=== PATIENT | male | born 1985 | race African-American/Black ===

== ENCOUNTER 2016-12-11 16:30 | Emergency (ER) | payer MEDICARE, OTHER ==
[~2016-12-11] VITALS: Ht 175.3 cm; Wt 95.3 kg
[~2016-12-11 16:30] MED LIST: ALBUAER3 IN
[2016-12-11 16:42] VITALS: BP 129/77
[2016-12-11] MEDS ORDERED: methylPREDNISolone SOD SUCC 125 MG/2 ML VL IM ONE (17:30)
[2016-12-11] MEDS ORDERED: diphenhdrAMINE HCL 50 MG/1 ML VL IM ONE (17:30)
== END 2016-12-11 18:02 | disposition home or self-care (01) ==
LOC: ER 16:38
DX: L30.9 Dermatitis, unspecified (principal); J45.909 Unspecified asthma, uncomplicated; F17.210 Nicotine dependence, cigarettes, uncomplicated; F12.10 Cannabis abuse, uncomplicated; Z79.899 Other long term (current) drug therapy
CPT/HCPCS: 96372; 99284; J1200; J2930

== ENCOUNTER 2017-04-20 00:03 | Emergency (ER) | payer OTHER, MEDICAID ==
[~2017-04-20] VITALS: Ht 177.8 cm; Wt 117.9 kg
[2017-04-20 00:30] VITALS: BP 131/83
[2017-04-20 00:51] LABS: Basophils # (auto) 0.2 uL; Basophils % (auto) 2.5 % (0.0-2.0); Eosinophils # (auto) 0.6 uL; Eosinophils % (auto) 7.6 % (0.0-7.0); Hemoglobin 15.6 g/dL (13.5-17.5); Lymphocytes # (auto) 2.4 uL; Lymphocytes % (auto) 30.5 % (10.0-50.0); Mean Corpuscular Hgb Conc. 33.1 g/dL (32.0-36.0); Mean Corpuscular Volume 87.4 fL (80.0-100.0); Monocytes # (auto) 0.7 uL; Monocytes % (auto) 8.8 % (0.0-12.0); Neutrophils % (auto) 50.6 % (37.0-80.0); Platelet Count (auto) 189 10^3/uL (140-450); Red Cell Distribution Width 13.3 % (11.6-16.0); White Blood Cell 7.9 10^3/uL (4.4-10.8)
[2017-04-20 01:10] LABS: Albumin 3.9 g/dL (3.4-5.0); BUN/Creatinine Ratio 17.7; Calcium 8.9 mg/dL (8.5-10.1)
[2017-04-20 01:12] LABS: Bilirubin, Total 0.3 mg/dL (0.2-1.0); Total Protein 8.1 g/dL (6.4-8.2)
[2017-04-20 01:25] LABS: Potassium 4.4 mmol/L (3.5-5.1)
== END 2017-04-20 05:44 | disposition left against medical advice (07) ==
LOC: ER 00:03
DX: K61.1 Rectal abscess (principal); Z53.21 Procedure and treatment not carried out due to patient leaving prior to being seen by health care provider
CPT/HCPCS: 36415; 80053; 85025

== ENCOUNTER 2018-02-02 03:09 | Emergency (ER) | payer OTHER, MEDICAID ==
[~2018-02-02] VITALS: Ht 172.7 cm; Wt 95.3 kg
[~2018-02-02 03:09] MED LIST changes: +METF-370 PO
[2018-02-02 03:51] LABS: Basophils # (auto) 0.1 uL; Eosinophils # (auto) 0.5 uL; Eosinophils % (auto) 5.4 % (0.0-7.0); Hematocrit 45.5 % (41.0-53.0); Hemoglobin 15.4 g/dL (13.5-17.5); Lymphocytes # (auto) 1.9 uL; Lymphocytes % (auto) 20.7 % (10.0-50.0); Mean Corpuscular Hemoglobin 29.9 pg (28.0-32.0); Mean Corpuscular Hgb Conc. 33.9 g/dL (32.0-36.0); Mean Corpuscular Volume 88.3 fL (80.0-100.0); Monocytes # (auto) 0.7 uL; Monocytes % (auto) 7.3 % (0.0-12.0); Neutrophils # (auto) 6.1 uL; Neutrophils % (auto) 65.6 % (37.0-80.0); Platelet Count (auto) 174 10^3/uL (140-450); Red Blood Cells 5.15 10^6/uL (4.5-5.90); Red Cell Distribution Width 14.1 % (11.8-14.3); White Blood Cell 9.3 10^3/uL (4.4-10.8)
[2018-02-02 04:17] LABS: Albumin 3.7 g/dL (3.4-5.0); BUN/Creatinine Ratio 12.2; Bilirubin, Total 0.5 mg/dL (0.2-1.0); Calcium 9.3 mg/dL (8.5-10.1); Total Protein 8.4 g/dL (6.4-8.2)
[2018-02-02 05:39] LABS: Urine Bacteria NONE SEEN /hpf (None Seen); Urine Blood Negative /uL (Negative); Urine Specific Gravity 1.039 (1.001-1.035); Urine WBC <1 /hpf (0 - 3)
[2018-02-02] MEDS ORDERED: SODIUM CHLORIDE 0.9% 1,000 ML IV ONE (07:09)
[2018-02-02] MEDS ORDERED: VANCOMYCIN 1GM/250ML 250 ML IV ONE (07:15)
[2018-02-02] MEDS ORDERED: ALBUTEROL SULF 2.5 MG/0.5ML(0.5%) NEB SOLN NEB ONE (08:15)
[2018-02-02] MEDS ORDERED: IPRATROPIUM BROM 0.5 MG/2.5ML INH SOL NEB ONE (08:15)
[2018-02-02 09:16] VITALS: BP 117/80
[2018-02-02] MEDS ORDERED: KETOROLAC TROMETH 30 MG/ML 1ML VIAL IV ONE (12:45)
[2018-02-02] MEDS ORDERED: InsuLIN REG 1unit/0.01ml Soln (100units/ml) IV ONE (12:45)
[2018-02-02] MEDS ORDERED: METOCLOPRAMIDE HCL 5MG/ml INJ 2ml VIAL IV ONE (12:45)
== END 2018-02-02 14:30 | disposition left against medical advice (07) ==
LOC: ER 03:11
DX: E11.65 Type 2 diabetes mellitus with hyperglycemia (principal); L73.9 Follicular disorder, unspecified; L02.225 Furuncle of perineum; J45.909 Unspecified asthma, uncomplicated; F12.10 Cannabis abuse, uncomplicated; Z79.84 Long term (current) use of oral hypoglycemic drugs; Z79.899 Other long term (current) drug therapy
CPT/HCPCS: 36415; 71046; 80053; 81001; 82010; 82962; 83036; 83735; 84443; 85025; 94640; 96365; 96375; J1815; J1885

== ENCOUNTER 2020-07-10 20:53 | Inpatient (IN) | payer OTHER, MEDICAID ==
[~2020-07-10] VITALS: Ht 175.3 cm; Wt 112.7 kg
[2020-07-10] MEDS ORDERED: InsuLIN REG 1unit/0.01ml Soln (100units/ml) IV ONE (21:30)
[2020-07-10] MEDS ORDERED: SODIUM CHLORIDE 0.9% 1,000 ML IV ONE (21:30)
[2020-07-10 22:02] LABS: Basophils # (auto) 0.1 10 ^3/uL (0-0.2); Basophils % (auto) 1.6 % (0.0-2.0); Eosinophils # (auto) 0.4 10 ^3/uL (0-0.8); Eosinophils % (auto) 5.7 % (0.0-7.0); Hematocrit 49.8 % (41.0-53.0); Hemoglobin 16.8 g/dL (13.5-17.5); Lymphocytes # (auto) 1.8 10 ^3/uL (0.4-5.4); Lymphocytes % (auto) 25.6 % (10.0-50.0); Mean Corpuscular Hemoglobin 30.3 pg (28.0-32.0); Mean Corpuscular Hgb Conc. 33.8 g/dL (32.0-36.0); Mean Corpuscular Volume 89.6 fL (80.0-100.0); Monocytes # (auto) 0.3 10 ^3/uL (0-1.3); Monocytes % (auto) 4.3 % (0.0-12.0); Neutrophils # (auto) 4.3 10 ^3/uL (1.6-8.6); Neutrophils % (auto) 62.8 % (37.0-80.0); Nucleated Red Blood Cells % 0.1 %; Platelet Count (auto) 144 10^3/uL (140-450); Red Blood Cells 5.55 10^6/uL (4.5-5.90); Red Cell Distribution Width 13.7 % (11.8-14.3); White Blood Cell 6.8 10^3/uL (4.4-10.8)
[2020-07-10 22:41] LABS: Albumin 3.5 g/dL (3.4-5.0); Calcium 9.2 mg/dL (8.5-10.1); Potassium 4.5 mmol/L (3.5-5.1)
[2020-07-10 22:50] LABS: BUN/Creatinine Ratio 13.1; Bilirubin, Total 0.6 mg/dL (0.2-1.0)
[2020-07-11] VITALS (7 sets, daily range): BP systolic 105–117; BP diastolic 59–79
[2020-07-11] MEDS ORDERED: ACETAMINOPHEN 325 MG TAB PO ONE
[2020-07-11] MEDS ORDERED: ONDANSETRON HCL 4 MG/2 ML VIAL IV ONE (00:15)
[2020-07-11] MEDS ORDERED: MORPHINE SULFATE 4 MG/ML SYR/VIAL IV ONE (00:15)
[2020-07-11] MEDS ORDERED: MORPHINE SULF INJ 2 MG/ML SYRINGE 1ML IV ONE (03:45)
[2020-07-11] MEDS ORDERED: DEXTROSE (50%) 50ML SYRG IV PRN (03:45)
[2020-07-11] MEDS ORDERED: ACETAMINOPHEN 325 MG TAB PO PRN (03:45)
[2020-07-11] MEDS ORDERED: ONDANSETRON HCL 4 MG/2 ML VIAL IV PRN (03:45)
[2020-07-11] MEDS ORDERED: VANCOMYCIN PER PHARMACY 0 MG IV SCH (03:45)
[2020-07-11] MEDS ORDERED: SODIUM CHLORIDE 0.9% 1,000 ML IV ONE (03:45)
[2020-07-11] MEDS ORDERED: VANCOMYCIN 1,500 MG in D5W 5% 250 ML IV ONE (04:00)
--- NOTE | 2020-07-11 05:00 | NUR ---
MS admit from ER MENDOZA,STEPHANIE admitted to [facility]. Patient oriented to RANDAL REED, RN primary RN, unit, room, bed, and unit policies regarding patient care and visiting hours. Patient weighed by bedscale and encouraged to call if they need something. All questions and concerns addressed, patient verbalized understanding. Will continue to monitor.
[2020-07-11 05:47] LABS: Basophils # (auto) 0.1 10 ^3/uL (0-0.2); Basophils % (auto) 1.3 % (0.0-2.0); Eosinophils # (auto) 0.4 10 ^3/uL (0-0.8); Eosinophils % (auto) 6.1 % (0.0-7.0); Hematocrit 43.7 % (41.0-53.0); Hemoglobin 14.7 g/dL (13.5-17.5); Lymphocytes # (auto) 2.1 10 ^3/uL (0.4-5.4); Lymphocytes % (auto) 29.3 % (10.0-50.0); Mean Corpuscular Hemoglobin 29.6 pg (28.0-32.0); Mean Corpuscular Hgb Conc. 33.7 g/dL (32.0-36.0); Mean Corpuscular Volume 87.8 fL (80.0-100.0); Monocytes # (auto) 0.5 10 ^3/uL (0-1.3); Neutrophils # (auto) 3.9 10 ^3/uL (1.6-8.6); Neutrophils % (auto) 56.3 % (37.0-80.0); Nucleated Red Blood Cells % 0.1 %; Platelet Count (auto) 128 10^3/uL (140-450); Red Blood Cells 4.97 10^6/uL (4.5-5.90); Red Cell Distribution Width 13.4 % (11.8-14.3)
[2020-07-11] MEDS ORDERED: PIPERACILLIN-TAZOB 3.375GM 100 ML IV SCH ×2 (06:00→07:02)
[2020-07-11 06:07] LABS: Albumin 3.1 g/dL (3.4-5.0); Calcium 8.8 mg/dL (8.5-10.1); Magnesium 2.2 mg/dL (1.6-2.6)
[2020-07-11 06:10] LABS: BUN/Creatinine Ratio 18.2; Bilirubin, Total 0.4 mg/dL (0.2-1.0); Phosphorus 3.4 mg/dL (2.5-4.90); Total Protein 6.8 g/dL (6.4-8.2)
[2020-07-11 06:13] LABS: Potassium 3.8 mmol/L (3.5-5.1)
[2020-07-11] MEDS: PIPERACILLIN-TAZOB 3.375GM 100 ML IV SCH ×3 (07:04→23:43)
[2020-07-11] MEDS: ACCU-CHEK COMFORT CURVE STRIP VI SCH ×4 (07:13→22:11)
[2020-07-11] MEDS: MORPHINE SULF INJ 2 MG/ML SYRINGE 1ML IV PRN ×4 (07:13→20:20)
[2020-07-11] MEDS: InsuLIN REG 1unit/0.01ml Soln (100units/ml) SC SCH ×3 (07:14→22:14)
[2020-07-11] MEDS: IPRATROPIUM BROM 0.5 MG/2.5ML INH SOL NEB SCH ×3 (07:18→18:00)
[2020-07-11] MEDS: ALBUTEROL SULF 2.5 MG/0.5ML(0.5%) NEB SOLN NEB SCH ×3 (07:18→18:00)
[2020-07-11] MEDS: ENOXAPARIN SOD 40 MG/0.4 ML SYRINGE SC SCH ×2 (10:00→10:18)
[2020-07-11] MEDS: VANCOMYCIN 1GM/250ML 250 ML IV SCH ×2 (10:18→22:04)
--- NOTE | 2020-07-11 19:34 | NUR ---
Opening Shift Note Received report and assumed care of patient. Patient is awake and alert. No signs or symptoms of distress noted. Instructed patient on plan of care and to call for assistance as needed. Will continue to monitor.
[2020-07-11 19:45] LABS: INR 0.9 (0.9-1.15)
--- NOTE | 2020-07-11 20:20 | NUR ---
Pain Medication Administration Patient complaining of lower back pain 10/10. Will administer pain medication per MD order. Will reassess pain level and will continue to monitor.
--- NOTE | 2020-07-11 20:50 | NUR ---
Pain Level Reassessment Patient's pain level reassessed to be 8/10. Offered patient nonpharmacological interventions. Patient states pain level is tolerable. No signs or symptoms of distress noted. Will continue to monitor.
[2020-07-11] MEDS: INSULIN LANTUS (GLARGINE) 1 /0.01ml (100units/ml) SC SCH (22:12)
[2020-07-11 23:44] LABS: Urine Bacteria NONE SEEN /hpf (None Seen); Urine Blood Negative /uL (Negative); Urine Specific Gravity 1.029 (1.001-1.035); Urine WBC 1 /hpf (0 - 3)
[2020-07-12] MEDS: ALBUTEROL SULF 2.5 MG/0.5ML(0.5%) NEB SOLN NEB SCH ×4 (00:07→18:34)
[2020-07-12] MEDS: IPRATROPIUM BROM 0.5 MG/2.5ML INH SOL NEB SCH ×4 (00:07→18:34)
[2020-07-12] MEDS: MORPHINE SULF INJ 2 MG/ML SYRINGE 1ML IV PRN ×6 (00:25→23:54)
--- NOTE | 2020-07-12 00:25 | NUR ---
Pain Medication Administration Patient complaining of lower back pain 10/10. Will administer pain medication per MD order. Will reassess pain level and will continue to monitor.
--- NOTE | 2020-07-12 00:55 | NUR ---
Pain Level Reassessment Patient asleep for pain level reassessment. No signs or symptoms of distress noted. Will continue to monitor.
--- NOTE | 2020-07-12 04:40 | NUR ---
Pain Medication Administration Patient complaining of lower back pain 10/10. Will administer pain medication per MD order. Will reassess pain level and will continue to monitor.
--- NOTE | 2020-07-12 05:10 | NUR ---
Pain Level Reassessment Patient's pain level reassessed to be 8/10. Offered patient nonpharmacological interventions. Patient repositioned for comfort.Will continue to monitor.
[2020-07-12 05:49] LABS: Basophils # (auto) 0.1 10 ^3/uL (0-0.2); Basophils % (auto) 0.9 % (0.0-2.0); Eosinophils # (auto) 0.4 10 ^3/uL (0-0.8); Eosinophils % (auto) 4.8 % (0.0-7.0); Hemoglobin 16.1 g/dL (13.5-17.5); Lymphocytes # (auto) 1.3 10 ^3/uL (0.4-5.4); Lymphocytes % (auto) 18.2 % (10.0-50.0); Mean Corpuscular Hgb Conc. 32.9 g/dL (32.0-36.0); Mean Corpuscular Volume 88.1 fL (80.0-100.0); Monocytes # (auto) 0.5 10 ^3/uL (0-1.3); Monocytes % (auto) 6.2 % (0.0-12.0); Neutrophils # (auto) 5.2 10 ^3/uL (1.6-8.6); Neutrophils % (auto) 69.9 % (37.0-80.0); Nucleated Red Blood Cells % 0.1 %; Platelet Count (auto) 147 10^3/uL (140-450); Red Blood Cells 5.56 10^6/uL (4.5-5.90); Red Cell Distribution Width 13.5 % (11.8-14.3); White Blood Cell 7.4 10^3/uL (4.4-10.8)
[2020-07-12 05:58] VITALS: BP 99/60
[2020-07-12 06:04] LABS: INR 0.91 (0.9-1.15)
[2020-07-12 06:09] LABS: Potassium 3.9 mmol/L (3.5-5.1)
[2020-07-12 06:14] LABS: BUN/Creatinine Ratio 16.8; Calcium 9.3 mg/dL (8.5-10.1)
[2020-07-12] MEDS: PIPERACILLIN-TAZOB 3.375GM 100 ML IV SCH ×3 (06:19→23:54)
[2020-07-12] MEDS: INSULIN LANTUS (GLARGINE) 1 /0.01ml (100units/ml) SC SCH ×2 (06:38→21:33)
[2020-07-12] MEDS: InsuLIN REG 1unit/0.01ml Soln (100units/ml) SC SCH ×4 (06:39→21:33)
[2020-07-12] MEDS: ACCU-CHEK COMFORT CURVE STRIP VI SCH ×4 (06:39→21:34)
[2020-07-12 09:00] VITALS: BP 106/64
[2020-07-12] MEDS: ENOXAPARIN SOD 40 MG/0.4 ML SYRINGE SC SCH (10:00)
[2020-07-12] MEDS: TRIAMCINOLONE ACET0.5% TOPICAL CRE 15GM TOP SCH (10:19)
[2020-07-12] MEDS: VANCOMYCIN 1GM/250ML 250 ML IV SCH (10:19)
--- NOTE | 2020-07-12 11:30 | NUR ---
WOUND CARE NOTE: WOUND CARE IN TO SEE PATIENT PER WOUND CARE REQUEST. PATIENT ADMITTED TO [facility] FOR HYPERGLYCEMIA AND LOWER BACK INFECTION. BEDSIDE NURSE NOTED SKIN INTEGRITY ISSUES UPON ADMISSION. PHOTOGRAPHS TAKENA T THAT TIME FOR REFERENCE. PATIENT NOTED TO HAVE INTACT ABSCESS TO MEDIAL LOWER BACK AND BILATERAL PLANTAR FOOT CALLUS. ZGUARD AND OPTIFOAM GENTLE SACRAL DRESSING APPLIED TO MEDIAL LOWER BACK. BILATERAL PLANTAR FEET LEFT OPEN TO AIR. PATIENT TO UNDERGO SURGERY FOR ABSCESS. RECOMMEND: DRESSING CHANGE PER SURGEON'S ORDERS. SKIN/WOUND CARE PLAN. CONTINUED MONITORING BY WOUND CARE TEAM. Addendum: 07/12/20 at 1712 by GILMER GAMA RN RN Amended: Links added.
--- NOTE | 2020-07-12 12:43 | NUR ---
Nutrition Consult Pt is a consult for new DM will provide education for pt Est energy needs 3200-5600 kcal (14-18 kcal/kg BW 107.9kg) Est protein needs 73-95g (1-1.3g/kg IBW 72.7kg) Will reassess prn. Addendum: 07/12/20 at [address] Amended: Links added.
[2020-07-12 13:00] VITALS: BP 112/74
--- NOTE | 2020-07-12 15:01 | NUR ---
assessment re: ss consult Patient is a 35 year old male who is alert and oriented. Patients phone is not working in his room. Per gaudencio Amezquita prior to admission patient lived home with her and family and needed assistance when his asthma acts ups. Lasha Amezquita her and her daughter help patient when he needs it. I have offer Bia [facility] information and Bia accepted information. Per Bia patient will return home on discharge and she will transport him home. Patients PCP is Dr Allison. Bia informed me patient was having trouble with his insurance thats why he ran out of insulin. Per Bia Insurance is fine now and patient will be getting his prescriptions. Patient will benefit from home health for med management. I will continue to monitor and follow up as appropriate. Bia verbalized understanding and agreed to discharge plan home. Addendum: 07/12/20 at 1515 by Marlee NYE Amended: Links added.
[2020-07-12 17:00] VITALS: BP 109/59
--- NOTE | 2020-07-12 18:34 | NUR ---
Respiratory note: PT AT PROCEDURE AT THIS TIME, MED NEB TX NOT GIVEN. WILL CONTINUE TO MONITOR.
--- NOTE | 2020-07-12 19:55 | NUR ---
Patient was taken to OR after blood sugar checked BS 145
[2020-07-12] MEDS ORDERED: ceFAZolin 1GM/50ML 50 ML IV ONE (21:29)
[2020-07-12] MEDS ORDERED: PROPOFOL 10 MG/ML 20 ML IV ONE (21:38)
[2020-07-12] MEDS ORDERED: fentaNYL CITRATE 100 MCG/2 ML VL ONE (21:38)
[2020-07-12] MEDS ORDERED: MIDAZOLAM HCL 1MG/1ML-2 ML VIAL ONE (21:38)
[2020-07-12] MEDS: LIDOCAINE 1% HCL (LOCAL ANESTH.) INJ 20ML MDV ONE ×2 (21:51→22:00)
[2020-07-12 22:00] VITALS: BP 106/70
[2020-07-12] MEDS ORDERED: fentaNYL CITRATE 100 MCG/2 ML VL IV PRN (22:15)
[2020-07-12] MEDS ORDERED: ePHEDrine SULFATE 50 MG/ML AMP IV PRN (22:15)
[2020-07-12] MEDS ORDERED: ONDANSETRON HCL 4 MG/2 ML VIAL IV PRN (22:15)
[2020-07-12] MEDS ORDERED: hydrALAZINE HCL 20 MG/ML VL IV PRN (22:15)
[2020-07-12] MEDS ORDERED: KETOROLAC TROMETH 30 MG/ML 1ML VIAL IV ONE (22:15)
[2020-07-12] MEDS ORDERED: KETOROLAC TROMETH 30 MG/ML 1ML VIAL ONE (22:28)
--- NOTE | 2020-07-12 22:43 | NUR ---
Report received from OR, patient to be on continues pulse ox for the next 24hr.
--- NOTE | 2020-07-12 23:00 | NUR ---
Respiratory note: CONT PULSOX CHECK ON PT WHO JUST CAME OUT OF OR. PT'S HR 65, RR 20, SPO2 97% ON ROOM AIR. PT IS SITTING UP IN BED EATING FOOD. NO S/S OF ANY RESPIRATORY DISTRESS NOTED. CONT PULSOX IS PLUGGED INTO RED OUTLET. WILL CONTINUE TO MONITOR PT.
[2020-07-13] MEDS: ALBUTEROL SULF 2.5 MG/0.5ML(0.5%) NEB SOLN NEB SCH ×4 (00:35→18:36)
[2020-07-13] MEDS: IPRATROPIUM BROM 0.5 MG/2.5ML INH SOL NEB SCH ×4 (00:35→18:36)
[2020-07-13] MEDS: VANCOMYCIN 1GM/250ML 250 ML IV SCH ×3 (02:59→18:51)
[2020-07-13 05:00] VITALS: BP 106/60
[2020-07-13] MEDS: ACCU-CHEK COMFORT CURVE STRIP VI SCH ×4 (05:15→22:13)
[2020-07-13] MEDS: MORPHINE SULF INJ 2 MG/ML SYRINGE 1ML IV PRN ×2 (05:16→08:27)
[2020-07-13] MEDS: INSULIN LANTUS (GLARGINE) 1 /0.01ml (100units/ml) SC SCH ×2 (06:40→22:07)
[2020-07-13] MEDS: InsuLIN REG 1unit/0.01ml Soln (100units/ml) SC SCH ×4 (06:40→22:07)
[2020-07-13] MEDS: PIPERACILLIN-TAZOB 3.375GM 100 ML IV SCH ×3 (06:40→22:06)
[2020-07-13] MEDS ORDERED: HYDROcodone-ACET 10/325MG TAB PO PRN (08:15)
--- NOTE | 2020-07-13 08:55 | NUR ---
Surgeon Rounding Dr. Charlette Busots Rounded. Vebal orders received to D/C morphine and administer Dilaudid 1mg IV Q4HP. Will enter in eMAR
[2020-07-13 09:00] VITALS: BP 103/53
[2020-07-13] MEDS: ENOXAPARIN SOD 40 MG/0.4 ML SYRINGE SC SCH (10:00)
[2020-07-13] MEDS: HYDROmorphone HCL 2 MG/ML VL IV PRN ×4 (10:37→23:33)
[2020-07-13] MEDS: TRIAMCINOLONE ACET0.5% TOPICAL CRE 15GM TOP SCH (12:18)
[2020-07-13 13:00] VITALS: BP 118/59
[2020-07-13 16:46] VITALS: BP 109/60
--- NOTE | 2020-07-13 18:40 | NUR ---
PT'S SPO2 DROPS TO 88% WHILE SLEEPING. PT DECLINED TO HAVE OXYGEN PLACED WHILE HE SLEEPS. HE REMAINS ON CONTINUOUS POX MONITORING. Addendum: 07/13/20 at 1842 [address] M[address]ENO RT Amended: Links added.
[2020-07-13 20:00] VITALS: BP 98/61
[2020-07-13 22:00] VITALS: BP 98/61
[2020-07-14] MEDS: IPRATROPIUM BROM 0.5 MG/2.5ML INH SOL NEB SCH ×3 (01:03→11:57)
[2020-07-14] MEDS: ALBUTEROL SULF 2.5 MG/0.5ML(0.5%) NEB SOLN NEB SCH ×3 (01:03→11:57)
[2020-07-14] MEDS: VANCOMYCIN 1GM/250ML 250 ML IV SCH ×3 (02:04→18:00)
[2020-07-14] MEDS: HYDROmorphone HCL 2 MG/ML VL IV PRN ×3 (03:33→13:18)
[2020-07-14 05:00] VITALS: BP 121/54
[2020-07-14] MEDS: PIPERACILLIN-TAZOB 3.375GM 100 ML IV SCH ×2 (06:59→13:18)
[2020-07-14] MEDS: ACCU-CHEK COMFORT CURVE STRIP VI SCH ×3 (06:59→17:13)
[2020-07-14] MEDS: INSULIN LANTUS (GLARGINE) 1 /0.01ml (100units/ml) SC SCH (07:00)
[2020-07-14] MEDS: InsuLIN REG 1unit/0.01ml Soln (100units/ml) SC SCH ×3 (07:01→17:30)
[2020-07-14 09:00] VITALS: BP 124/68
[2020-07-14 09:25] VITALS: BP 121/54
[2020-07-14] MEDS: ENOXAPARIN SOD 40 MG/0.4 ML SYRINGE SC SCH (10:00)
[2020-07-14] MEDS: TRIAMCINOLONE ACET0.5% TOPICAL CRE 15GM TOP SCH (10:14)
[2020-07-14 13:00] VITALS: BP 133/78
[2020-07-14 17:00] VITALS: BP 133/78
--- NOTE | 2020-07-14 18:00 | NUR ---
RECEIVED CALL BACK FROM DOCTOR HOFFMAN, ORDERS RECEIVED FOR RN TO CHANGE DRESSING (SEE COMMUNICATION ORDER) AND THEN D/C PATIENT HOME. PER MD PATIENT TO FOLLOW UP WITH MD IN 2 WEEKS. WILL CARRY OUT.
--- NOTE | 2020-07-14 18:33 | NUR ---
WOUND CARE PERFORMED PER MD ORDERS NO PURULENT DRAINAGE OR ODOR NOTED. PATIENT TOLERATED WELL.
--- NOTE | 2020-07-14 18:46 | NUR ---
Discharge instructions given as ordered. Encourage to follow up with PMD as instructed. All questions and concerns addressed. Patient verbalized understanding. Medication reconciliation form completed and copy given to patient. IV removed with catheter intact, pressure dressing applied. Patient refused assistance from staff and ambulated to elevator with steady gait with all personal belongings, Family waiting in front lobby for transportation home. No distress noted at time of departure. Addendum: 07/14/20 at 1849 by PAWAN SHIELDS RN RN Patients prescription in hands at time of discharge.
== END 2020-07-14 18:46 | disposition home or self-care (01) | DRG 579 ==
LOC: ER 20:53 → OVERFLOW 20:54 → CENTRAL 07-11 04:54
PROVIDERS: ADMIT Internal Medicine; ATTEND Internal Medicine
PROC: 0J990ZZ Drainage of Buttock Subcutaneous Tissue and Fascia, Open Approach (ICD-10-PCS; principal; 2020-07-12 21:30)
DX: L05.02 Pilonidal sinus with abscess (principal); N17.0 Acute kidney failure with tubular necrosis; E11.65 Type 2 diabetes mellitus with hyperglycemia; J45.909 Unspecified asthma, uncomplicated; E86.0 Dehydration; Z79.4 Long term (current) use of insulin
CPT/HCPCS: 36415; 71250; 74176; 80048; 80053; 80202; 81001; 82010; 82962; 83036; 83735; 84100; 84443; 85025; 85610; 86850; 86900; 86901; 87070; 87075; 87205; 94640; 94760; 96361; 96374; 96375; G0378; J0690; J1815; J1885; J2001; J2250; J2405; J2543; J2704; J7060

== ENCOUNTER 2021-01-24 01:19 | Inpatient (IN) | payer OTHER, MEDICAID ==
[~2021-01-24] VITALS: Ht 175.3 cm; Wt 103.7 kg
[~2021-01-24 01:19] MED LIST changes: +ATOR20TA PO; +CLIN300C8 PO; +INSLANTI SC; +SACC250C PO
[2021-01-24 03:42] LABS: Basophils # (auto) 0.1 10 ^3/uL (0-0.2); Basophils % (auto) 0.9 % (0.0-2.0); Eosinophils # (auto) 0.7 10 ^3/uL (0-0.8); Eosinophils % (auto) 6.8 % (0.0-7.0); Hematocrit 44.8 % (41.0-53.0); Hemoglobin 15.3 g/dL (13.5-17.5); Lymphocytes # (auto) 1.9 10 ^3/uL (0.4-5.4); Lymphocytes % (auto) 19.2 % (10.0-50.0); Mean Corpuscular Hemoglobin 29.7 pg (28.0-32.0); Mean Corpuscular Hgb Conc. 34.1 g/dL (32.0-36.0); Monocytes # (auto) 0.6 10 ^3/uL (0-1.3); Monocytes % (auto) 6.5 % (0.0-12.0); Neutrophils # (auto) 6.5 10 ^3/uL (1.6-8.6); Neutrophils % (auto) 66.6 % (37.0-80.0); Nucleated Red Blood Cells % 0.2 %; Platelet Count (auto) 185 10^3/uL (140-450); Red Blood Cells 5.15 10^6/uL (4.5-5.90); White Blood Cell 9.8 10^3/uL (4.4-10.8)
[2021-01-24 04:01] LABS: Albumin 3.9 g/dL (3.4-5.0); BUN/Creatinine Ratio 12.5; Calcium 9.3 mg/dL (8.5-10.1); Magnesium 2.3 mg/dL (1.6-2.6); Potassium 3.6 mmol/L (3.5-5.1)
[2021-01-24 04:04] LABS: Bilirubin, Total 1.4 mg/dL (0.2-1.0); Total Protein 8.6 g/dL (6.4-8.2)
[2021-01-24 04:14] LABS: INR 0.96 (0.9-1.15)
[2021-01-24] MEDS ORDERED: fentaNYL CITRATE 100 MCG/2 ML VL IV ONE (05:30)
[2021-01-24] MEDS ORDERED: ONDANSETRON HCL 4 MG/2 ML VIAL IV ONE (05:30)
[2021-01-24] MEDS ORDERED: SODIUM CHLORIDE 0.9% 1,000 ML IV ONE (06:00)
[2021-01-24] MEDS ORDERED: CLINDAMYCIN 600MG IV 50 ML IV ONE (07:00)
[2021-01-24] MEDS ORDERED: DOCUSATE SOD 100 MG CAP PO PRN (07:15)
[2021-01-24] MEDS ORDERED: NITROGLYCERIN 0.4 MG SL TAB SL PRN (07:15)
[2021-01-24] MEDS ORDERED: MORPHINE SULF INJ 2 MG/ML SYRINGE 1ML IV PRN (07:15)
[2021-01-24] MEDS ORDERED: ACETAMINOPHEN 325 MG TAB PO PRN (07:15)
[2021-01-24] MEDS ORDERED: DEXTROSE (50%) 50ML SYRG IV PRN (07:15)
[2021-01-24] MEDS ORDERED: TEMAZEPAM 15 MG CAP PO PRN (07:15)
[2021-01-24] MEDS: SODIUM CHLORIDE 0.9% 1,000 ML IV SCH ×2 (07:24→14:23)
[2021-01-24] MEDS: MORPHINE SULFATE 4 MG/ML SYR/VIAL IV PRN ×3 (07:34→15:45)
[2021-01-24] MEDS: ONDANSETRON HCL 4 MG/2 ML VIAL IV PRN (07:35)
[2021-01-24 07:39] LABS: Basophils # (auto) 0 10 ^3/uL (0-0.2); Basophils % (auto) 0.5 % (0.0-2.0); Eosinophils # (auto) 0.7 10 ^3/uL (0-0.8); Eosinophils % (auto) 7.4 % (0.0-7.0); Hematocrit 42.2 % (41.0-53.0); Hemoglobin 14.3 g/dL (13.5-17.5); Lymphocytes # (auto) 1.6 10 ^3/uL (0.4-5.4); Lymphocytes % (auto) 18.5 % (10.0-50.0); Mean Corpuscular Hemoglobin 29.6 pg (28.0-32.0); Mean Corpuscular Volume 87.2 fL (80.0-100.0); Monocytes # (auto) 0.7 10 ^3/uL (0-1.3); Monocytes % (auto) 8.4 % (0.0-12.0); Neutrophils # (auto) 5.8 10 ^3/uL (1.6-8.6); Neutrophils % (auto) 65.2 % (37.0-80.0); Nucleated Red Blood Cells % 0.1 %; Platelet Count (auto) 165 10^3/uL (140-450); Red Blood Cells 4.83 10^6/uL (4.5-5.90); Red Cell Distribution Width 13.8 % (11.8-14.3); White Blood Cell 8.9 10^3/uL (4.4-10.8)
[2021-01-24 07:59] LABS: Albumin 3.5 g/dL (3.4-5.0); BUN/Creatinine Ratio 14.7; Calcium 8.9 mg/dL (8.5-10.1); Potassium 3.5 mmol/L (3.5-5.1)
[2021-01-24 08:02] LABS: Bilirubin, Total 1.3 mg/dL (0.2-1.0); Total Protein 7.7 g/dL (6.4-8.2)
[2021-01-24] MEDS ORDERED: IODIXANOL 320MG/ML 100ML BTL IV ONE (08:18)
[2021-01-24] MEDS: HYDROcodone-ACET 5/325MG TAB PO PRN ×2 (08:43→18:46)
[2021-01-24] MEDS: ZINC SULFATE 220mg CAP or TAB PO SCH (09:36)
[2021-01-24] MEDS: MULTIPLE VITAMIN TAB PO SCH (09:36)
[2021-01-24] MEDS: FAMOTIDINE (10MG/ML) 2ML VL IV SCH ×2 (09:36→22:00)
[2021-01-24] MEDS: ASCORBIC ACID 500 MG TAB PO SCH ×2 (09:36→22:00)
[2021-01-24] MEDS: ENOXAPARIN SOD 40 MG/0.4 ML SYRINGE SC SCH (09:37)
[2021-01-24] MEDS: InsuLIN REG 1unit/0.01ml Soln (100units/ml) SC SCH ×3 (11:30→22:00)
[2021-01-24] MEDS: ACCU-CHEK COMFORT CURVE STRIP VI SCH ×3 (11:30→22:00)
[2021-01-24 11:45] VITALS: BP 119/74
[2021-01-24 13:00] VITALS: BP 119/74
[2021-01-24] MEDS ORDERED: ALBUTEROL SULF HFA 90MCG INH 200DOSE IN SCH (14:00)
[2021-01-24] MEDS: CLINDAMYCIN 600MG IV 50 ML IV SCH ×2 (14:22→22:00)
[2021-01-24 14:45] VITALS: BP 119/74
[2021-01-24] MEDS ORDERED: ALBUTEROL SULF 2.5 MG/0.5ML(0.5%) NEB SOLN NEB PRN (15:00)
[2021-01-24 17:01] VITALS: BP 95/64
[2021-01-24 20:00] VITALS: BP 128/79
[2021-01-24] MEDS: INSULIN LANTUS (GLARGINE) 1 /0.01ml (100units/ml) SC SCH (22:00)
[2021-01-24 22:06] VITALS: BP 128/79
[2021-01-25] MEDS: MORPHINE SULFATE 4 MG/ML SYR/VIAL IV PRN ×4 (02:00→22:30)
[2021-01-25 05:00] VITALS: BP 130/76
[2021-01-25] MEDS: CLINDAMYCIN 600MG IV 50 ML IV SCH ×3 (06:00→22:00)
[2021-01-25 06:37] LABS: Basophils # (auto) 0.1 10 ^3/uL (0-0.2); Basophils % (auto) 0.7 % (0.0-2.0); Eosinophils # (auto) 0.7 10 ^3/uL (0-0.8); Eosinophils % (auto) 8.4 % (0.0-7.0); Hematocrit 41.7 % (41.0-53.0); Hemoglobin 14.3 g/dL (13.5-17.5); Lymphocytes # (auto) 1.4 10 ^3/uL (0.4-5.4); Lymphocytes % (auto) 17.6 % (10.0-50.0); Mean Corpuscular Hgb Conc. 34.2 g/dL (32.0-36.0); Mean Corpuscular Volume 87.6 fL (80.0-100.0); Monocytes # (auto) 0.6 10 ^3/uL (0-1.3); Monocytes % (auto) 7.7 % (0.0-12.0); Neutrophils # (auto) 5.4 10 ^3/uL (1.6-8.6); Neutrophils % (auto) 65.6 % (37.0-80.0); Nucleated Red Blood Cells % 0.2 %; Platelet Count (auto) 172 10^3/uL (140-450); Red Blood Cells 4.76 10^6/uL (4.5-5.90); Red Cell Distribution Width 13.9 % (11.8-14.3); White Blood Cell 8.2 10^3/uL (4.4-10.8)
[2021-01-25] MEDS: InsuLIN REG 1unit/0.01ml Soln (100units/ml) SC SCH ×5 (06:47→22:00)
[2021-01-25] MEDS: ACCU-CHEK COMFORT CURVE STRIP VI SCH ×4 (06:47→22:00)
[2021-01-25 06:54] LABS: Albumin 3.2 g/dL (3.4-5.0); Calcium 9.1 mg/dL (8.5-10.1); Potassium 3.7 mmol/L (3.5-5.1)
[2021-01-25 06:57] LABS: BUN/Creatinine Ratio 13.8; Bilirubin, Total 1.4 mg/dL (0.2-1.0); Total Protein 7.5 g/dL (6.4-8.2)
[2021-01-25] MEDS ORDERED: SUCCINYLCHOLINE CHLORIDE 20 MG/ML 10ML VIAL IV ONE (07:03)
[2021-01-25] MEDS ORDERED: fentaNYL CITRATE 100 MCG/2 ML VL ONE (07:06)
[2021-01-25] MEDS ORDERED: MEPERIDINE HCL (50 MG/ML) 1 ML VIAL ONE (07:07)
[2021-01-25] MEDS ORDERED: ROCURONIUM 10MG/ML 10ML VIAL IV ONE (07:07)
[2021-01-25] MEDS ORDERED: PROPOFOL 10 MG/ML 20 ML IV ONE (07:07)
[2021-01-25] MEDS ORDERED: NEOSTIGMINE 1 MG/ML INJ (10mg/10ML VIAL) ONE (07:07)
[2021-01-25] MEDS ORDERED: MEPERIDINE HCL (25 MG/ML) 1ML VIAL ONE (07:07)
[2021-01-25] MEDS ORDERED: ONDANSETRON HCL 4 MG/2 ML VIAL ONE (07:07)
[2021-01-25] MEDS ORDERED: SODIUM CHLORIDE LOCK 10 ML ONE (07:07)
[2021-01-25] MEDS ORDERED: GLYCOPYRROLATE 0.2 MG/ML 1ML VIAL ONE (07:07)
[2021-01-25] MEDS ORDERED: MIDAZOLAM HCL 1MG/1ML-2 ML VIAL ONE (07:07)
[2021-01-25] MEDS ORDERED: LIDOCAINE W/ EPINEPHRINE 1% 20ML VIAL ONE (07:26)
[2021-01-25] MEDS ORDERED: HYDROmorphone HCL 2 MG/ML VL IV PRN (07:45)
[2021-01-25] MEDS ORDERED: ACCU-CHEK COMFORT CURVE STRIP VI ONE (07:45)
[2021-01-25] MEDS ORDERED: MORPHINE SULFATE 4 MG/ML SYR/VIAL IV PRN (07:45)
[2021-01-25] MEDS ORDERED: ONDANSETRON HCL 4 MG/2 ML VIAL IV PRN (07:45)
[2021-01-25] MEDS ORDERED: POVIDONE IODINE 10 % TOPICAL OINT 30GM TOP ONE (08:36)
[2021-01-25] MEDS: BUPIVACAINE 0.25% INJ 50ML VIAL ONE ×2 (08:55→12:04)
[2021-01-25] MEDS: ENOXAPARIN SOD 40 MG/0.4 ML SYRINGE SC SCH (10:00)
[2021-01-25] MEDS: FAMOTIDINE (10MG/ML) 2ML VL IV SCH ×2 (10:00→22:00)
[2021-01-25] MEDS: ZINC SULFATE 220mg CAP or TAB PO SCH (10:19)
[2021-01-25] MEDS: ASCORBIC ACID 500 MG TAB PO SCH ×2 (10:19→22:00)
[2021-01-25] MEDS: MULTIPLE VITAMIN TAB PO SCH (10:19)
[2021-01-25] MEDS: ONDANSETRON HCL 4 MG/2 ML VIAL IV PRN (10:24)
[2021-01-25 10:35] VITALS: BP 127/71
[2021-01-25] MEDS: SODIUM CHLORIDE 0.9% 1,000 ML IV SCH (10:43)
[2021-01-25] MEDS ORDERED: LORazepam 0.5 MG TAB PO PRN (11:30)
[2021-01-25] MEDS: LORazepam 2MG/ML-1ML VIAL IV ONE ×2 (12:05→12:51)
[2021-01-25 13:00] VITALS: BP 104/74
[2021-01-25 16:42] VITALS: BP 108/58
[2021-01-25 20:00] VITALS: BP 119/71
[2021-01-25 22:00] VITALS: BP 119/71
[2021-01-25] MEDS: INSULIN LANTUS (GLARGINE) 1 /0.01ml (100units/ml) SC SCH (22:00)
[2021-01-26 05:00] VITALS: BP 104/54
[2021-01-26] MEDS: CLINDAMYCIN 600MG IV 50 ML IV SCH ×2 (05:57→13:23)
[2021-01-26] MEDS: ACCU-CHEK COMFORT CURVE STRIP VI SCH ×2 (07:00→11:49)
[2021-01-26 07:31] LABS: Basophils # (auto) 0 10 ^3/uL (0-0.2); Basophils % (auto) 0.4 % (0.0-2.0); Eosinophils # (auto) 0.5 10 ^3/uL (0-0.8); Eosinophils % (auto) 5.8 % (0.0-7.0); Hematocrit 39.4 % (41.0-53.0); Hemoglobin 13.2 g/dL (13.5-17.5); Lymphocytes # (auto) 1.8 10 ^3/uL (0.4-5.4); Lymphocytes % (auto) 21.9 % (10.0-50.0); Mean Corpuscular Hemoglobin 29.5 pg (28.0-32.0); Mean Corpuscular Hgb Conc. 33.6 g/dL (32.0-36.0); Mean Corpuscular Volume 87.8 fL (80.0-100.0); Monocytes # (auto) 0.6 10 ^3/uL (0-1.3); Monocytes % (auto) 7.2 % (0.0-12.0); Neutrophils # (auto) 5.3 10 ^3/uL (1.6-8.6); Neutrophils % (auto) 64.7 % (37.0-80.0); Nucleated Red Blood Cells % 0.1 %; Platelet Count (auto) 169 10^3/uL (140-450); Red Blood Cells 4.48 10^6/uL (4.5-5.90); Red Cell Distribution Width 13.9 % (11.8-14.3); White Blood Cell 8.3 10^3/uL (4.4-10.8)
[2021-01-26 07:52] LABS: Magnesium 2.2 mg/dL (1.6-2.6); Potassium 3.4 mmol/L (3.5-5.1)
[2021-01-26 07:56] LABS: BUN/Creatinine Ratio 12.2; Bilirubin, Total 1.6 mg/dL (0.2-1.0); Calcium 8.8 mg/dL (8.5-10.1)
[2021-01-26 09:00] VITALS: BP 114/60
[2021-01-26] MEDS: ASCORBIC ACID 500 MG TAB PO SCH (10:08)
[2021-01-26] MEDS: MULTIPLE VITAMIN TAB PO SCH (10:08)
[2021-01-26] MEDS: SODIUM CHLORIDE 0.9% 1,000 ML IV SCH (10:08)
[2021-01-26] MEDS: ZINC SULFATE 220mg CAP or TAB PO SCH (10:08)
[2021-01-26] MEDS: FAMOTIDINE (10MG/ML) 2ML VL IV SCH (10:08)
[2021-01-26] MEDS: ENOXAPARIN SOD 40 MG/0.4 ML SYRINGE SC SCH (10:09)
[2021-01-26] MEDS: MORPHINE SULFATE 4 MG/ML SYR/VIAL IV PRN (10:18)
[2021-01-26] MEDS: InsuLIN REG 1unit/0.01ml Soln (100units/ml) SC SCH (11:30)
[2021-01-26 13:00] VITALS: BP 109/78
[2021-01-26] MEDS ORDERED: cefTRIAXone 1GM/50ML D5W 50 ML IV ONE (15:00)
[2021-01-26] MEDS ORDERED: SACC250C PO (15:04)
[2021-01-26] MEDS ORDERED: CLIN300C8 PO (15:04)
[2021-01-26] MEDS ORDERED: INSLANTI SC (15:04)
[2021-01-26] MEDS ORDERED: METF-372 PO (15:04)
[2021-01-26] MEDS ORDERED: LEVO500T31 PO (15:04)
[2021-01-26] MEDS ORDERED: MUPI2CRE17 EX (15:11)
[2021-01-26 16:12] VITALS: BP 109/78
== END 2021-01-26 17:15 | disposition home health service (06) | DRG 572 ==
LOC: ER 01:22 → TELE 01:23 → TELE-WESTW 11:10
PROVIDERS: ADMIT Nurse Practitioner Family; ATTEND Internal Medicine
PROC: 0JB90ZZ Excision of Buttock Subcutaneous Tissue and Fascia, Open Approach (ICD-10-PCS; principal; 2021-01-25 07:41)
DX: L05.02 Pilonidal sinus with abscess (principal); J45.909 Unspecified asthma, uncomplicated; E11.9 Type 2 diabetes mellitus without complications; E66.01 Morbid (severe) obesity due to excess calories; F41.9 Anxiety disorder, unspecified; Z82.49 Family history of ischemic heart disease and other diseases of the circulatory system; Z83.3 Family history of diabetes mellitus; Z20.822 Contact with and (suspected) exposure to COVID-19; Z68.26 Body mass index [BMI] 26.0-26.9, adult; Z88.8 Allergy status to other drugs, medicaments and biological substances; Z91.010 Allergy to peanuts; Z91.013 Allergy to seafood; B95.1 Streptococcus, group B, as the cause of diseases classified elsewhere; B95.62 Methicillin resistant Staphylococcus aureus infection as the cause of diseases classified elsewhere
CPT/HCPCS: 36415; 71045; 74176; 80048; 80053; 82247; 82962; 83036; 83605; 83735; 85025; 85610; 86850; 86900; 86901; 87070; 87075; 87076; 87077; 87081; 87205; 87426; G0378; J0330; J0696; J1815; J2250; J2405; J2704; J3490; Q9967

== ENCOUNTER 2021-03-09 23:38 | Emergency (ER) | payer OTHER, MEDICAID ==
[~2021-03-09] VITALS: Ht 175.3 cm; Wt 99.8 kg
[~2021-03-09 23:38] MED LIST changes: +LEVO500T31 PO; -METF-370 PO; +METF-372 PO; +MUPI2CRE17 EX
[2021-03-10 01:05] LABS: Basophils # (auto) 0.1 10 ^3/uL (0-0.2); Basophils % (auto) 0.8 % (0.0-2.0); Eosinophils # (auto) 0 10 ^3/uL (0-0.8); Eosinophils % (auto) 0.2 % (0.0-7.0); Hematocrit 46.5 % (41.0-53.0); Hemoglobin 15.9 g/dL (13.5-17.5); Lymphocytes # (auto) 1.7 10 ^3/uL (0.4-5.4); Lymphocytes % (auto) 18.8 % (10.0-50.0); Mean Corpuscular Hgb Conc. 34.2 g/dL (32.0-36.0); Mean Corpuscular Volume 87.7 fL (80.0-100.0); Monocytes # (auto) 0.6 10 ^3/uL (0-1.3); Monocytes % (auto) 6.6 % (0.0-12.0); Neutrophils # (auto) 6.7 10 ^3/uL (1.6-8.6); Neutrophils % (auto) 73.6 % (37.0-80.0); Nucleated Red Blood Cells % 0.1 %; Platelet Count (auto) 233 10^3/uL (140-450); White Blood Cell 9.2 10^3/uL (4.4-10.8)
[2021-03-10 01:25] LABS: Albumin 4.2 g/dL (3.4-5.0); BUN/Creatinine Ratio 8.9; Potassium 3.7 mmol/L (3.5-5.1)
[2021-03-10 01:28] LABS: Bilirubin, Total 1.5 mg/dL (0.2-1.0); Total Protein 8.7 g/dL (6.4-8.2)
[2021-03-10 01:48] LABS: Urine Bacteria FEW /hpf (None Seen); Urine Blood Negative /uL (Negative); Urine Mucus FEW (None Seen); Urine Specific Gravity 1.021 (1.001-1.035); Urine WBC 8 /hpf (0 - 3)
[2021-03-10 04:15] VITALS: BP 147/90
== END 2021-03-10 05:51 | disposition home or self-care (01) ==
LOC: ER 23:43
DX: K59.00 Constipation, unspecified (principal)
CPT/HCPCS: 36415; 74176; 80053; 81001; 83690; 85025

== ENCOUNTER 2023-04-12 01:18 | Inpatient (IN) | payer OTHER, MEDICAID ==
[~2023-04-12] VITALS: Ht 175.3 cm; Wt 104.9 kg
[~2023-04-12 01:18] MED LIST changes: +BACDST PO; +CLIN300C70 PO; -CLIN300C8 PO; +NAP500T PO
[2023-04-12] MEDS ORDERED: CLINDAMYCIN 900MG IV 50 ML IV ONE (03:15)
[2023-04-12] MEDS ORDERED: MORPHINE SULFATE 4 MG/ML SYR/VIAL IV ONE (03:15)
[2023-04-12] MEDS ORDERED: CLINDAMYCIN 300MG IV 50 ML IV ONE (05:30)
[2023-04-12 06:41] LABS: Basophils # (auto) 0.1 10 ^3/uL (0-0.2); Basophils % (auto) 0.7 % (0.0-2.0); Eosinophils # (auto) 0.5 10 ^3/uL (0-0.8); Eosinophils % (auto) 3.3 % (0.0-7.0); Hematocrit 44.7 % (41.0-53.0); Lymphocytes # (auto) 1.7 10 ^3/uL (0.4-5.4); Lymphocytes % (auto) 11.7 % (10.0-50.0); Mean Corpuscular Hemoglobin 29.4 pg (28.0-32.0); Mean Corpuscular Hgb Conc. 33.6 g/dL (32.0-36.0); Mean Corpuscular Volume 87.5 fL (80.0-100.0); Monocytes # (auto) 1.1 10 ^3/uL (0-1.3); Monocytes % (auto) 7.8 % (0.0-12.0); Neutrophils # (auto) 11.1 10 ^3/uL (1.6-8.6); Neutrophils % (auto) 76.5 % (37.0-80.0); Red Blood Cells 5.11 10^6/uL (4.5-5.90); White Blood Cell 14.5 10^3/uL (4.4-10.8)
[2023-04-12] MEDS ORDERED: VANCOMYCIN 1GM/250ML 250 ML IV ONE (06:45)
[2023-04-12 06:58] LABS: Albumin 3.1 g/dL (3.4-5.0); BUN/Creatinine Ratio 16.8 (10.0-20.0); Calcium 9.2 mg/dL (8.5-10.1); Potassium 3.8 mmol/L (3.5-5.1)
[2023-04-12 07:07] LABS: Bilirubin, Total 0.6 mg/dL (0.2-1.0); Total Protein 8.6 g/dL (6.4-8.2)
[2023-04-12] MEDS ORDERED: DOCUSATE SOD 100 MG CAP PO PRN (09:45)
[2023-04-12] MEDS ORDERED: ONDANSETRON HCL 4 MG/2 ML VIAL IV PRN (09:45)
[2023-04-12] MEDS ORDERED: DEXTROSE (50%) 50ML SYRG IV PRN (09:45)
[2023-04-12] MEDS ORDERED: VANCOMYCIN PER PHARMACY 0 MG IV SCH (09:45)
[2023-04-12] MEDS ORDERED: hydrALAZINE HCL 20 MG/ML VL IV PRN (10:30)
[2023-04-12] MEDS: SODIUM CHLORIDE 0.9% 1,000 ML IV SCH ×2 (10:31→18:06)
[2023-04-12] MEDS: cefTRIAXone 1GM/50ML D5W 50 ML IV SCH (10:54)
[2023-04-12] MEDS: MORPHINE SULFATE INJ 2 MG/ml SYRG IV PRN ×3 (10:55→22:05)
[2023-04-12 11:00] VITALS: BP 121/65
[2023-04-12] MEDS: ACCU-CHEK COMFORT CURVE STRIP VI SCH ×3 (11:30→22:06)
[2023-04-12] MEDS: InsuLIN REG 1unit/0.01ml Soln (100units/ml) SC SCH ×3 (11:30→21:59)
[2023-04-12] MEDS ORDERED: hydrALAZINE HCL 20 MG/ML VL IV SCH (12:00)
[2023-04-12] MEDS: VANCOMYCIN 1GM/250ML 250 ML IV SCH (16:13)
[2023-04-12] MEDS: ATORVASTATIN 20 MG TAB PO SCH (21:57)
[2023-04-13] VITALS (7 sets, daily range): BP systolic 107–137; BP diastolic 65–81
[2023-04-13] MEDS: VANCOMYCIN 1GM/250ML 250 ML IV SCH ×3 (02:00→20:00)
[2023-04-13] MEDS: SODIUM CHLORIDE 0.9% 1,000 ML IV SCH ×2 (02:47→09:39)
[2023-04-13] MEDS: MORPHINE SULFATE INJ 2 MG/ml SYRG IV PRN ×3 (03:17→21:07)
[2023-04-13] MEDS: ACCU-CHEK COMFORT CURVE STRIP VI SCH ×4 (06:46→22:00)
[2023-04-13] MEDS: InsuLIN REG 1unit/0.01ml Soln (100units/ml) SC SCH ×4 (06:49→22:00)
[2023-04-13 07:41] LABS: Albumin 2.8 g/dL (3.4-5.0); Calcium 8.8 mg/dL (8.5-10.1); Potassium 3.9 mmol/L (3.5-5.1)
[2023-04-13 07:45] LABS: BUN/Creatinine Ratio 15.3 (10.0-20.0); Bilirubin, Total 0.3 mg/dL (0.2-1.0); Total Protein 7.6 g/dL (6.4-8.2)
[2023-04-13 07:46] LABS: Basophils # (auto) 0.1 10 ^3/uL (0-0.2); Basophils % (auto) 0.6 % (0.0-2.0); Eosinophils # (auto) 0.6 10 ^3/uL (0-0.8); Eosinophils % (auto) 5.6 % (0.0-7.0); Hematocrit 44.7 % (41.0-53.0); Hemoglobin 14.9 g/dL (13.5-17.5); Lymphocytes # (auto) 1.9 10 ^3/uL (0.4-5.4); Lymphocytes % (auto) 18.2 % (10.0-50.0); Mean Corpuscular Hemoglobin 29.4 pg (28.0-32.0); Mean Corpuscular Hgb Conc. 33.3 g/dL (32.0-36.0); Mean Corpuscular Volume 88.4 fL (80.0-100.0); Monocytes # (auto) 0.9 10 ^3/uL (0-1.3); Monocytes % (auto) 8.9 % (0.0-12.0); Neutrophils # (auto) 6.9 10 ^3/uL (1.6-8.6); Neutrophils % (auto) 66.7 % (37.0-80.0); Nucleated Red Blood Cells % 0.1 %; Red Blood Cells 5.06 10^6/uL (4.5-5.90); Red Cell Distribution Width 13.2 % (11.8-14.3); White Blood Cell 10.4 10^3/uL (4.4-10.8)
[2023-04-13] MEDS: cefTRIAXone 1GM/50ML D5W 50 ML IV SCH (09:33)
[2023-04-13] MEDS: ALBUTEROL SULF 2.5 MG/0.5ML(0.5%) NEB SOLN NEB PRN (12:42)
[2023-04-13] MEDS: ATORVASTATIN 20 MG TAB PO SCH (21:10)
[2023-04-14] MEDS: MORPHINE SULFATE INJ 2 MG/ml SYRG IV PRN ×3 (01:26→20:10)
[2023-04-14] MEDS: VANCOMYCIN 1GM/250ML 250 ML IV SCH ×2 (04:06→20:00)
[2023-04-14 05:06] VITALS: BP 129/69
[2023-04-14] MEDS: InsuLIN REG 1unit/0.01ml Soln (100units/ml) SC SCH ×4 (06:39→23:09)
[2023-04-14] MEDS: ACCU-CHEK COMFORT CURVE STRIP VI SCH ×4 (07:00→23:06)
[2023-04-14 08:57] VITALS: BP 121/72
[2023-04-14] MEDS: SODIUM CHLORIDE 0.9% 1,000 ML IV SCH ×3 (09:57→20:05)
[2023-04-14] MEDS: cefTRIAXone 1GM/50ML D5W 50 ML IV SCH (09:57)
[2023-04-14 13:00] VITALS: BP 110/61
[2023-04-14] MEDS ORDERED: HYDROcodone-ACET 5/325MG TAB PO PRN (14:30)
[2023-04-14 17:17] VITALS: BP 110/62
[2023-04-14] MEDS: ALBUTEROL SULF 2.5 MG/0.5ML(0.5%) NEB SOLN NEB PRN (18:16)
[2023-04-14 22:00] VITALS: BP 120/79
[2023-04-14] MEDS: ATORVASTATIN 20 MG TAB PO SCH (23:09)
[2023-04-15] VITALS (7 sets, daily range): BP systolic 98–138; BP diastolic 57–98
[2023-04-15] MEDS: VANCOMYCIN 1GM/250ML 250 ML IV SCH ×3 (04:20→20:15)
[2023-04-15] MEDS: MORPHINE SULFATE INJ 2 MG/ml SYRG IV PRN ×4 (04:21→21:15)
[2023-04-15] MEDS: SODIUM CHLORIDE 0.9% 1,000 ML IV SCH ×3 (04:25→21:05)
[2023-04-15] MEDS: InsuLIN REG 1unit/0.01ml Soln (100units/ml) SC SCH ×4 (05:55→21:16)
[2023-04-15] MEDS: ACCU-CHEK COMFORT CURVE STRIP VI SCH ×4 (06:24→22:00)
[2023-04-15] MEDS: cefTRIAXone 1GM/50ML D5W 50 ML IV SCH (09:54)
[2023-04-15] MEDS: ALBUTEROL SULF 2.5 MG/0.5ML(0.5%) NEB SOLN NEB PRN ×2 (14:52→19:55)
[2023-04-15] MEDS: ATORVASTATIN 20 MG TAB PO SCH (21:15)
[2023-04-16] MEDS: VANCOMYCIN 1GM/250ML 250 ML IV SCH ×3 (03:56→19:22)
[2023-04-16] MEDS: MORPHINE SULFATE INJ 2 MG/ml SYRG IV PRN ×4 (03:57→18:28)
[2023-04-16 05:00] VITALS: BP 98/59
[2023-04-16] MEDS: SODIUM CHLORIDE 0.9% 1,000 ML IV SCH ×3 (05:25→22:05)
[2023-04-16] MEDS: InsuLIN REG 1unit/0.01ml Soln (100units/ml) SC SCH ×4 (06:08→22:06)
[2023-04-16] MEDS: ACCU-CHEK COMFORT CURVE STRIP VI SCH ×4 (06:15→22:00)
[2023-04-16 09:00] VITALS: BP 96/55
[2023-04-16] MEDS: cefTRIAXone 1GM/50ML D5W 50 ML IV SCH (09:09)
[2023-04-16 12:44] LABS: Basophils # (auto) 0.1 10 ^3/uL (0-0.2); Basophils % (auto) 0.9 % (0.0-2.0); Eosinophils # (auto) 0.6 10 ^3/uL (0-0.8); Eosinophils % (auto) 6.8 % (0.0-7.0); Hematocrit 42.4 % (41.0-53.0); Hemoglobin 14.2 g/dL (13.5-17.5); Lymphocytes # (auto) 1.6 10 ^3/uL (0.4-5.4); Lymphocytes % (auto) 18.6 % (10.0-50.0); Mean Corpuscular Hemoglobin 29.3 pg (28.0-32.0); Mean Corpuscular Hgb Conc. 33.4 g/dL (32.0-36.0); Mean Corpuscular Volume 87.5 fL (80.0-100.0); Monocytes # (auto) 0.8 10 ^3/uL (0-1.3); Monocytes % (auto) 9.3 % (0.0-12.0); Neutrophils # (auto) 5.7 10 ^3/uL (1.6-8.6); Neutrophils % (auto) 64.4 % (37.0-80.0); Nucleated Red Blood Cells % 0.1 %; Red Blood Cells 4.85 10^6/uL (4.5-5.90); Red Cell Distribution Width 13.5 % (11.8-14.3); White Blood Cell 8.8 10^3/uL (4.4-10.8)
[2023-04-16 13:00] VITALS: BP 100/60
[2023-04-16 17:00] VITALS: BP 105/56
[2023-04-16] MEDS: ALBUTEROL SULF 2.5 MG/0.5ML(0.5%) NEB SOLN NEB PRN (17:57)
[2023-04-16 22:00] VITALS: BP 118/82
[2023-04-16] MEDS: ATORVASTATIN 20 MG TAB PO SCH (22:05)
[2023-04-17] MEDS: MORPHINE SULFATE INJ 2 MG/ml SYRG IV PRN ×4 (01:43→22:53)
[2023-04-17] MEDS: VANCOMYCIN 1GM/250ML 250 ML IV SCH ×3 (04:40→20:03)
[2023-04-17 05:00] VITALS: BP 96/55
[2023-04-17 06:12] LABS: Potassium 3.9 mmol/L (3.5-5.1)
[2023-04-17] MEDS: SODIUM CHLORIDE 0.9% 1,000 ML IV SCH ×3 (06:14→23:05)
[2023-04-17] MEDS: ACCU-CHEK COMFORT CURVE STRIP VI SCH ×4 (06:15→21:34)
[2023-04-17] MEDS: InsuLIN REG 1unit/0.01ml Soln (100units/ml) SC SCH ×4 (06:16→21:37)
[2023-04-17 06:18] LABS: BUN/Creatinine Ratio 16.9 (10.0-20.0); Calcium 8.8 mg/dL (8.5-10.1)
[2023-04-17 09:00] VITALS: BP 121/75
[2023-04-17] MEDS: cefTRIAXone 1GM/50ML D5W 50 ML IV SCH (09:30)
[2023-04-17 13:00] VITALS: BP 96/51
[2023-04-17] MEDS: Juven Orange Powder PACKET 27.5gm PO SCH (17:12)
[2023-04-17 17:25] VITALS: BP 96/57
[2023-04-17] MEDS: ALBUTEROL SULF 2.5 MG/0.5ML(0.5%) NEB SOLN NEB PRN (18:05)
[2023-04-17] MEDS: ATORVASTATIN 20 MG TAB PO SCH (21:34)
[2023-04-17 23:20] VITALS: BP 113/75
[2023-04-18] MEDS: VANCOMYCIN 1GM/250ML 250 ML IV SCH ×3 (03:33→19:35)
[2023-04-18] MEDS: MORPHINE SULFATE INJ 2 MG/ml SYRG IV PRN ×3 (04:51→20:06)
[2023-04-18 05:33] VITALS: BP 118/60
[2023-04-18] MEDS: ACCU-CHEK COMFORT CURVE STRIP VI SCH ×4 (06:51→21:18)
[2023-04-18] MEDS: ALBUTEROL SULF 2.5 MG/0.5ML(0.5%) NEB SOLN NEB PRN (06:51)
[2023-04-18] MEDS: InsuLIN REG 1unit/0.01ml Soln (100units/ml) SC SCH ×5 (06:56→21:20)
[2023-04-18] MEDS: Juven Orange Powder PACKET 27.5gm PO SCH ×3 (08:00→17:52)
[2023-04-18 09:12] VITALS: BP 117/63
[2023-04-18] MEDS: cefTRIAXone 1GM/50ML D5W 50 ML IV SCH (10:26)
[2023-04-18] MEDS: SODIUM CHLORIDE 0.9% 1,000 ML IV SCH ×2 (10:41→15:45)
[2023-04-18 12:24] VITALS: BP 111/72
[2023-04-18 13:51] VITALS: BP 111/72
[2023-04-18 16:52] VITALS: BP 102/53
[2023-04-18] MEDS: ATORVASTATIN 20 MG TAB PO SCH (21:18)
[2023-04-18 22:00] VITALS: BP 106/61
[2023-04-19] MEDS: SODIUM CHLORIDE 0.9% 1,000 ML IV SCH ×3 (00:05→16:45)
[2023-04-19] MEDS: MORPHINE SULFATE INJ 2 MG/ml SYRG IV PRN ×3 (02:58→20:30)
[2023-04-19] MEDS: VANCOMYCIN 1GM/250ML 250 ML IV SCH ×3 (04:13→20:29)
[2023-04-19] MEDS: ALBUTEROL SULF 2.5 MG/0.5ML(0.5%) NEB SOLN NEB PRN (04:53)
[2023-04-19 05:09] VITALS: BP 136/75
[2023-04-19] MEDS: ACCU-CHEK COMFORT CURVE STRIP VI SCH ×4 (06:38→22:07)
[2023-04-19] MEDS: InsuLIN REG 1unit/0.01ml Soln (100units/ml) SC SCH ×4 (06:39→22:13)
[2023-04-19] MEDS ORDERED: DexAMETHasone SOD PHOS 10MG/1ML VIAL INJ ONE (07:42)
[2023-04-19] MEDS ORDERED: LIDOCAINE 2% (LOCAL ANESTH.) PF 5ml SDV ONE (07:42)
[2023-04-19] MEDS ORDERED: PROPOFOL 10 MG/ML 20 ML IV ONE (07:42)
[2023-04-19] MEDS ORDERED: KETOROLAC TROMETH 30 MG/ML 1ML VIAL ONE (07:42)
[2023-04-19] MEDS ORDERED: GLYCOPYRROLATE 0.2 MG/ML 1ML VIAL ONE (07:42)
[2023-04-19] MEDS ORDERED: ONDANSETRON HCL 4 MG/2 ML VIAL ONE (07:42)
[2023-04-19 08:00] VITALS: BP 120/63
[2023-04-19] MEDS ORDERED: BUPIVACAINE 0.25% INJ 50ML VIAL ONE (08:29)
[2023-04-19] MEDS ORDERED: FLUMAZENIL 0.1 MG/ML INJ 10ML MDV IV PRN (09:00)
[2023-04-19] MEDS ORDERED: ONDANSETRON HCL 4 MG/2 ML VIAL IV PRN (09:00)
[2023-04-19] MEDS ORDERED: hydrALAZINE HCL 20 MG/ML VL IV PRN (09:00)
[2023-04-19] MEDS ORDERED: HYDROmorphone HCL 2 MG/ML VL/or syr IV PRN (09:00)
[2023-04-19] MEDS ORDERED: LABETALOL HCL 5 MG/ML 4ML SYRINGE IV PRN (09:00)
[2023-04-19] MEDS ORDERED: ePHEDrine SULFATE 50 MG/ML AMP IV PRN (09:00)
[2023-04-19] MEDS ORDERED: fentaNYL CITRATE 100 MCG/2 ML VL IV PRN (09:00)
[2023-04-19] MEDS ORDERED: NALOXONE HCL 0.4 MG/ML VIAL IV PRN (09:00)
[2023-04-19] MEDS ORDERED: oxyCODONE HCL 5MG TAB PO PRN (09:00)
[2023-04-19] MEDS ORDERED: HYDROcodone-ACET 5/325MG TAB PO ONE (09:20)
[2023-04-19] MEDS: cefTRIAXone 1GM/50ML D5W 50 ML IV SCH (10:12)
[2023-04-19] MEDS: Juven Orange Powder PACKET 27.5gm PO SCH ×2 (10:12→17:29)
[2023-04-19 12:40] VITALS: BP 100/56
[2023-04-19 16:55] VITALS: BP 120/63
[2023-04-19 20:00] VITALS: BP 135/69
[2023-04-19 22:00] VITALS: BP 135/69
[2023-04-19] MEDS: ATORVASTATIN 20 MG TAB PO SCH (22:07)
[2023-04-20] VITALS (7 sets, daily range): BP systolic 97–122; BP diastolic 56–74
[2023-04-20] MEDS: SODIUM CHLORIDE 0.9% 1,000 ML IV SCH ×3 (01:05→17:45)
[2023-04-20] MEDS: MORPHINE SULFATE INJ 2 MG/ml SYRG IV PRN ×3 (02:33→14:11)
[2023-04-20] MEDS: VANCOMYCIN 1GM/250ML 250 ML IV SCH ×3 (03:39→20:55)
[2023-04-20] MEDS: ACCU-CHEK COMFORT CURVE STRIP VI SCH ×4 (06:04→21:06)
[2023-04-20] MEDS: InsuLIN REG 1unit/0.01ml Soln (100units/ml) SC SCH ×4 (06:06→21:12)
[2023-04-20] MEDS: Juven Orange Powder PACKET 27.5gm PO SCH ×2 (09:14→18:26)
[2023-04-20] MEDS: cefTRIAXone 1GM/50ML D5W 50 ML IV SCH (09:15)
[2023-04-20] MEDS: ALBUTEROL SULF 2.5 MG/0.5ML(0.5%) NEB SOLN NEB PRN (15:44)
[2023-04-20] MEDS: ATORVASTATIN 20 MG TAB PO SCH (21:02)
[2023-04-21] MEDS: MORPHINE SULFATE INJ 2 MG/ml SYRG IV PRN ×3 (01:05→11:31)
[2023-04-21] MEDS: SODIUM CHLORIDE 0.9% 1,000 ML IV SCH ×2 (01:08→11:35)
[2023-04-21] MEDS: VANCOMYCIN 1GM/250ML 250 ML IV SCH ×2 (03:34→12:32)
[2023-04-21 05:12] VITALS: BP 119/65
[2023-04-21] MEDS: ACCU-CHEK COMFORT CURVE STRIP VI SCH ×2 (06:39→11:31)
[2023-04-21] MEDS: InsuLIN REG 1unit/0.01ml Soln (100units/ml) SC SCH ×2 (06:59→11:33)
[2023-04-21] MEDS: cefTRIAXone 1GM/50ML D5W 50 ML IV SCH (08:52)
[2023-04-21] MEDS: Juven Orange Powder PACKET 27.5gm PO SCH (08:53)
[2023-04-21 09:00] VITALS: BP 141/84
[2023-04-21 12:34] VITALS: BP 101/61
[2023-04-21] MEDS ORDERED: HYDR-4902 PO (13:42)
[2023-04-21] MEDS ORDERED: LEVO500T91 PO (13:42)
[2023-04-21] MEDS ORDERED: BACDST PO (13:42)
[2023-04-21 14:20] VITALS: BP 101/61
== END 2023-04-21 15:20 | disposition home or self-care (01) | DRG 603 ==
LOC: ER 01:22 → OVERFLOW 09:57 → WEST WING 04-13 03:42
PROVIDERS: ADMIT Nurse Practitioner Family; ATTEND Internal Medicine
PROC: 0J970ZZ Drainage of Back Subcutaneous Tissue and Fascia, Open Approach (ICD-10-PCS; principal; 2023-04-19 08:15)
DX: L03.312 Cellulitis of back [any part except buttock and flank] (principal); L02.212 Cutaneous abscess of back [any part, except buttock and flank]; E11.65 Type 2 diabetes mellitus with hyperglycemia; I10 Essential (primary) hypertension; J45.909 Unspecified asthma, uncomplicated; Z88.8 Allergy status to other drugs, medicaments and biological substances; Z91.010 Allergy to peanuts; Z91.013 Allergy to seafood; Z79.899 Other long term (current) drug therapy; Z79.4 Long term (current) use of insulin; Z82.49 Family history of ischemic heart disease and other diseases of the circulatory system; Z83.3 Family history of diabetes mellitus
CPT/HCPCS: 36415; 72128; 74176; 76705; 76881; 80048; 80053; 80202; 82565; 82962; 83605; 85025; 86850; 86900; 86901; 87070; 87075; 87076; 87205; 94640; G0378; J0696; J1100; J1815; J1885; J2001; J2405; J2704; J3490

== ENCOUNTER 2023-11-12 20:38 | Inpatient (IN) | payer OTHER, MEDICAID ==
[~2023-11-12] VITALS: Ht 172.7 cm; Wt 108.3 kg
[~2023-11-12 20:38] MED LIST changes: -CLIN300C70 PO; +HYDR-4902 PO; -LEVO500T31 PO; +LEVO500T91 PO
[2023-11-12 22:59] LABS: Basophils # (auto) 0.1 10 ^3/uL (0-0.2); Basophils % (auto) 0.7 % (0.0-2.0); Eosinophils # (auto) 0.4 10 ^3/uL (0-0.8); Eosinophils % (auto) 3.9 % (0.0-7.0); Hematocrit 45.2 % (41.0-53.0); Hemoglobin 15.2 g/dL (13.5-17.5); Lymphocytes # (auto) 1.7 10 ^3/uL (0.4-5.4); Lymphocytes % (auto) 14.9 % (10.0-50.0); Mean Corpuscular Hemoglobin 29.1 pg (28.0-32.0); Mean Corpuscular Hgb Conc. 33.6 g/dL (32.0-36.0); Mean Corpuscular Volume 86.6 fL (80.0-100.0); Monocytes # (auto) 0.6 10 ^3/uL (0-1.3); Monocytes % (auto) 5.4 % (0.0-12.0); Neutrophils # (auto) 8.4 10 ^3/uL (1.6-8.6); Neutrophils % (auto) 75.1 % (37.0-80.0); Nucleated Red Blood Cells % 0.1 %; Red Blood Cells 5.22 10^6/uL (4.5-5.90); Red Cell Distribution Width 13.8 % (11.8-14.3); White Blood Cell 11.2 10^3/uL (4.4-10.8)
[2023-11-12 23:11] LABS: Chloride 102 mmol/L (98-107); Potassium 3.9 mmol/L (3.5-5.1); Sodium 133 mmol/L (136-145)
[2023-11-12 23:12] LABS: Anion Gap 7 (5-15); Calcium 9.7 mg/dL (8.7-10.4); Carbon Dioxide 24 mmol/L (20-30)
[2023-11-12 23:17] LABS: BUN/Creatinine Ratio 11.6 (10.0-20.0); Blood Urea Nitrogen 13 mg/dL (9-23); Glucose 395 mg/dL (74-106)
[2023-11-12] MEDS ORDERED: cefTRIAXone 1GM/50ML D5W 50 ML IV ONE (23:45)
[2023-11-13] MEDS ORDERED: ONDANSETRON HCL 4 MG/2 ML VIAL IV ONE (00:15)
[2023-11-13] MEDS ORDERED: MORPHINE SULFATE 4 MG/ML SYR/VIAL IV ONE (00:15)
[2023-11-13 02:00] VITALS: PULSE 86; RESP 16; O2SAT 98
[2023-11-13 04:54] LABS: Urine Epithelial Cast None Seen /hpf (<5)
[2023-11-13 05:17] LABS: Urine Bacteria NONE SEEN /hpf (None Seen); Urine Blood Negative /uL (Negative); Urine Clarity Clear (Clear); Urine Color Colorless (Yellow); Urine Protein, UAD Negative (Negative); Urine Specific Gravity 1.038 (1.001-1.035); Urine Urobilinogen Normal (Negative); Urine WBC 1 /hpf (0 - 3)
[2023-11-13] MEDS ORDERED: ACETAMINOPHEN 325 MG TAB PO PRN (05:45)
[2023-11-13] MEDS ORDERED: DEXTROSE (50%) 50ML SYRG IV PRN (05:45)
[2023-11-13] MEDS: HYDROcodone-ACET 5/325MG TAB PO PRN (05:52)
[2023-11-13] MEDS: CLINDAMYCIN 600MG IV 50 ML IV SCH ×2 (05:52→14:22)
[2023-11-13] MEDS ORDERED: InsuLIN REG 1unit/0.01ml Soln (100units/ml) ONE (06:38)
[2023-11-13] MEDS: ACCU-CHEK COMFORT CURVE STRIP VI SCH ×4 (06:39→21:42)
[2023-11-13] MEDS: InsuLIN REG 1unit/0.01ml Soln (100units/ml) SC SCH ×4 (06:40→22:00)
[2023-11-13 08:02] VITALS: PULSE 78; RESP 16; O2SAT 98
[2023-11-13] MEDS ORDERED: ONDANSETRON HCL 4 MG/2 ML VIAL ONE (08:25)
[2023-11-13] MEDS: MORPHINE SULFATE INJ 2 MG/ml SYRG IV PRN ×3 (08:27→21:41)
[2023-11-13] MEDS: ONDANSETRON HCL 4 MG/2 ML VIAL IV PRN ×2 (08:27→21:41)
[2023-11-13 11:15] VITALS: PULSE 80; RESP 17; O2SAT 99
[2023-11-13] MEDS ORDERED: VANCOMYCIN PER PHARMACY 0 MG IV SCH (15:30)
[2023-11-13] MEDS ORDERED: VANCOMYCIN 1GM/200ML 200 ML IV ONE (15:45)
[2023-11-13 20:10] VITALS: PULSE 82; RESP 18; O2SAT 100
[2023-11-13] MEDS: cefTRIAXone 1GM/50ML D5W 50 ML IV SCH (21:41)
[2023-11-13] MEDS: ATORVASTATIN 20 MG TAB PO SCH (21:42)
[2023-11-14] VITALS (8 sets, daily range): BP systolic 100–127; BP diastolic 44–80; PULSE 63–85; RESP 18–20; TEMP 97.5–98.6; O2SAT 94–99
[2023-11-14] MEDS: VANCOMYCIN 1GM/200ML 200 ML IV SCH ×3 (02:09→22:23)
[2023-11-14 06:18] LABS: Basophils # (auto) 0.1 10 ^3/uL (0-0.2); Basophils % (auto) 0.5 % (0.0-2.0); Eosinophils # (auto) 0.4 10 ^3/uL (0-0.8); Hematocrit 43.5 % (41.0-53.0); Hemoglobin 14.3 g/dL (13.5-17.5); Lymphocytes # (auto) 1.6 10 ^3/uL (0.4-5.4); Lymphocytes % (auto) 16.5 % (10.0-50.0); Mean Corpuscular Hemoglobin 28.9 pg (28.0-32.0); Mean Corpuscular Hgb Conc. 32.9 g/dL (32.0-36.0); Mean Corpuscular Volume 87.8 fL (80.0-100.0); Monocytes # (auto) 0.8 10 ^3/uL (0-1.3); Monocytes % (auto) 7.8 % (0.0-12.0); Neutrophils # (auto) 6.8 10 ^3/uL (1.6-8.6); Neutrophils % (auto) 71.2 % (37.0-80.0); Nucleated Red Blood Cells % 0.1 %; Red Blood Cells 4.95 10^6/uL (4.5-5.90); Red Cell Distribution Width 13.4 % (11.8-14.3); White Blood Cell 9.6 10^3/uL (4.4-10.8)
[2023-11-14 06:21] LABS: Chloride 103 mmol/L (98-107); Potassium 4.1 mmol/L (3.5-5.1); Sodium 135 mmol/L (136-145)
[2023-11-14 06:22] LABS: Anion Gap 6 (5-15); Calcium 9.4 mg/dL (8.7-10.4); Carbon Dioxide 26 mmol/L (20-30)
[2023-11-14 06:27] LABS: Glucose 334 mg/dL (74-106)
[2023-11-14 06:28] LABS: BUN/Creatinine Ratio 10.3 (10.0-20.0); Blood Urea Nitrogen 13 mg/dL (9-23)
[2023-11-14] MEDS: ACCU-CHEK COMFORT CURVE STRIP VI SCH ×5 (06:34→23:46)
[2023-11-14] MEDS: ONDANSETRON HCL 4 MG/2 ML VIAL IV PRN (06:35)
[2023-11-14] MEDS: MORPHINE SULFATE INJ 2 MG/ml SYRG IV PRN ×3 (06:41→21:09)
[2023-11-14] MEDS: InsuLIN REG 1unit/0.01ml Soln (100units/ml) SC SCH ×5 (06:53→23:47)
[2023-11-14] MEDS ORDERED: DEXTROSE (50%) 50ML SYRG IV PRN (09:15)
[2023-11-14] MEDS ORDERED: ATOR40TA52 PO (09:23)
[2023-11-14] MEDS ORDERED: INSULIN LANTUS (GLARGINE) 1 /0.01ml (100units/ml) SC SCH (10:00)
[2023-11-14] MEDS: cefTRIAXone 1GM/50ML D5W 50 ML IV SCH (21:09)
[2023-11-14] MEDS: ATORVASTATIN 20 MG TAB PO SCH (22:24)
[2023-11-15] MEDS: HYDROcodone-ACET 5/325MG TAB PO PRN (00:01)
[2023-11-15] MEDS: MORPHINE SULFATE INJ 2 MG/ml SYRG IV PRN ×5 (03:42→22:19)
[2023-11-15] MEDS: InsuLIN REG 1unit/0.01ml Soln (100units/ml) SC SCH ×6 (03:43→23:35)
[2023-11-15] MEDS: ACCU-CHEK COMFORT CURVE STRIP VI SCH ×6 (03:43→23:35)
[2023-11-15 05:00] VITALS: BP 110/57; PULSE 63; RESP 20; TEMP 97.4; O2SAT 96
[2023-11-15 08:00] VITALS: PULSE 74; RESP 18
[2023-11-15 09:00] VITALS: BP 113/70; PULSE 74; RESP 24; TEMP 97.5; O2SAT 98
[2023-11-15] MEDS: VANCOMYCIN 1GM/200ML 200 ML IV SCH ×3 (09:07→23:36)
[2023-11-15] MEDS: INSULIN LANTUS (GLARGINE) 1 /0.01ml (100units/ml) SC SCH (09:18)
[2023-11-15 13:00] VITALS: BP 118/70; PULSE 80; RESP 22; TEMP 98.1; O2SAT 99
[2023-11-15 17:00] VITALS: BP 116/68; PULSE 75; RESP 24; TEMP 97.8; O2SAT 94
[2023-11-15] MEDS: ATORVASTATIN 20 MG TAB PO SCH (21:43)
[2023-11-15] MEDS: cefTRIAXone 1GM/50ML D5W 50 ML IV SCH (21:43)
[2023-11-15] MEDS: MUPIROCIN 2% OINT 15gm or 22gm FOR MRSA NARES TOP SCH (21:45)
[2023-11-15 22:00] VITALS: BP 110/62; PULSE 76; RESP 18; TEMP 98.1; O2SAT 97
[2023-11-16] VITALS (7 sets, daily range): BP systolic 98–119; BP diastolic 65–95; PULSE 63–83; RESP 16–19; TEMP 97.5–98.1; O2SAT 97–100
[2023-11-16] MEDS: MORPHINE SULFATE INJ 2 MG/ml SYRG IV PRN ×5 (02:36→23:45)
[2023-11-16] MEDS: ACCU-CHEK COMFORT CURVE STRIP VI SCH ×6 (04:58→23:48)
[2023-11-16] MEDS: InsuLIN REG 1unit/0.01ml Soln (100units/ml) SC SCH ×6 (04:59→23:48)
[2023-11-16 06:01] LABS: Basophils # (auto) 0.1 10 ^3/uL (0-0.2); Basophils % (auto) 0.7 % (0.0-2.0); Eosinophils # (auto) 0.5 10 ^3/uL (0-0.8); Eosinophils % (auto) 5.9 % (0.0-7.0); Hematocrit 43.8 % (41.0-53.0); Hemoglobin 14.2 g/dL (13.5-17.5); Lymphocytes # (auto) 2.2 10 ^3/uL (0.4-5.4); Lymphocytes % (auto) 26.1 % (10.0-50.0); Mean Corpuscular Hemoglobin 28.8 pg (28.0-32.0); Mean Corpuscular Hgb Conc. 32.5 g/dL (32.0-36.0); Mean Corpuscular Volume 88.6 fL (80.0-100.0); Monocytes # (auto) 0.5 10 ^3/uL (0-1.3); Monocytes % (auto) 6.5 % (0.0-12.0); Neutrophils # (auto) 5.1 10 ^3/uL (1.6-8.6); Neutrophils % (auto) 60.8 % (37.0-80.0); Red Blood Cells 4.95 10^6/uL (4.5-5.90); Red Cell Distribution Width 13.4 % (11.8-14.3); White Blood Cell 8.4 10^3/uL (4.4-10.8)
[2023-11-16] MEDS: VANCOMYCIN 1GM/200ML 200 ML IV SCH ×2 (09:05→18:34)
[2023-11-16] MEDS: HYDROcodone-ACET 5/325MG TAB PO PRN (09:06)
[2023-11-16] MEDS: MUPIROCIN 2% OINT 15gm or 22gm FOR MRSA NARES TOP SCH ×2 (10:09→21:39)
[2023-11-16] MEDS: INSULIN LANTUS (GLARGINE) 1 /0.01ml (100units/ml) SC SCH (10:13)
[2023-11-16] MEDS ORDERED: CHLORHEXIDINE 4% TOPICAL soln 118ml TOP ONE (11:30)
[2023-11-16] MEDS: ATORVASTATIN 20 MG TAB PO SCH (21:39)
[2023-11-16] MEDS: cefTRIAXone 1GM/50ML D5W 50 ML IV SCH (21:39)
[2023-11-17] VITALS (7 sets, daily range): BP systolic 120–123; BP diastolic 67–70; PULSE 75–81; RESP 16–22; TEMP 97.6–98.1; O2SAT 97–99
[2023-11-17 04:02] LABS: Basophils # (auto) 0.1 10 ^3/uL (0-0.2); Basophils % (auto) 1.1 % (0.0-2.0); Eosinophils # (auto) 0.4 10 ^3/uL (0-0.8); Eosinophils % (auto) 5.6 % (0.0-7.0); Hematocrit 43.1 % (41.0-53.0); Hemoglobin 14.2 g/dL (13.5-17.5); Lymphocytes # (auto) 1.6 10 ^3/uL (0.4-5.4); Lymphocytes % (auto) 23.9 % (10.0-50.0); Mean Corpuscular Hgb Conc. 33.1 g/dL (32.0-36.0); Mean Corpuscular Volume 87.8 fL (80.0-100.0); Monocytes # (auto) 0.5 10 ^3/uL (0-1.3); Monocytes % (auto) 7.2 % (0.0-12.0); Neutrophils # (auto) 4.1 10 ^3/uL (1.6-8.6); Neutrophils % (auto) 62.2 % (37.0-80.0); Nucleated Red Blood Cells % 0.1 %; Red Blood Cells 4.91 10^6/uL (4.5-5.90); Red Cell Distribution Width 13.2 % (11.8-14.3); White Blood Cell 6.6 10^3/uL (4.4-10.8)
[2023-11-17] MEDS: ACCU-CHEK COMFORT CURVE STRIP VI SCH ×5 (04:07→20:52)
[2023-11-17] MEDS: InsuLIN REG 1unit/0.01ml Soln (100units/ml) SC SCH ×5 (04:07→20:51)
[2023-11-17 04:10] LABS: Chloride 105 mmol/L (98-107); Potassium 4.1 mmol/L (3.5-5.1); Sodium 135 mmol/L (136-145)
[2023-11-17 04:11] LABS: Anion Gap 6 (5-15); Carbon Dioxide 24 mmol/L (20-30)
[2023-11-17 04:12] LABS: Calcium 9.3 mg/dL (8.5-10.1); INR 0.96 (0.9-1.15); Prothrombin Time 10.1 sec (9.3-11.8)
[2023-11-17 04:16] LABS: Glucose 255 mg/dL (74-106)
[2023-11-17 04:17] LABS: BUN/Creatinine Ratio 14.2 (10.0-20.0); Blood Urea Nitrogen 16 mg/dL (9-23)
[2023-11-17] MEDS: SODIUM CHLORIDE 0.9% 1,000 ML IV SCH ×3 (04:33→18:33)
[2023-11-17] MEDS: MORPHINE SULFATE INJ 2 MG/ml SYRG IV PRN ×3 (04:36→20:35)
[2023-11-17] MEDS: VANCOMYCIN 1GM/200ML 200 ML IV SCH ×2 (04:37→15:36)
[2023-11-17] MEDS ORDERED: fentaNYL CITRATE 100 MCG/2 ML VL ONE (07:38)
[2023-11-17] MEDS ORDERED: KETAMINE 50mg/ML 1ml syringe ONE (07:38)
[2023-11-17] MEDS ORDERED: ROCURONIUM 10MG/ML 10ML VIAL IV ONE (07:40)
[2023-11-17] MEDS ORDERED: GLYCOPYRROLATE 0.2 MG/ML 1ML VIAL ONE (07:40)
[2023-11-17] MEDS ORDERED: PROPOFOL 10 MG/ML 20 ML IV ONE ×3 (07:40→08:42)
[2023-11-17] MEDS ORDERED: SUGAMMADEX 200mg/2ml Vial (100MG/ML) IV ONE (07:41)
[2023-11-17] MEDS ORDERED: ONDANSETRON HCL 4 MG/2 ML VIAL ONE (07:41)
[2023-11-17] MEDS ORDERED: LIDOCAINE 2% (LOCAL ANESTH.) PF 5ml SDV ONE (07:41)
[2023-11-17] MEDS ORDERED: DexAMETHasone SOD PHOS 10MG/1ML VIAL INJ ONE (07:41)
[2023-11-17] MEDS ORDERED: KETOROLAC TROMETH 30 MG/ML 1ML VIAL ONE (07:41)
[2023-11-17] MEDS ORDERED: CELECOXIB 100 MG CAP ONE (07:49)
[2023-11-17] MEDS ORDERED: GABAPENTIN 400 MG CAP ONE (07:50)
[2023-11-17] MEDS ORDERED: ACETAMINOPHEN IV 100 ML IV ONE (07:50)
[2023-11-17] MEDS ORDERED: LIDOCAINE W/ EPINEPHRINE 1% 20ML VIAL ONE ×2 (07:51→08:28)
[2023-11-17] MEDS ORDERED: CELECOXIB 100 MG CAP PO ONE (08:00)
[2023-11-17] MEDS ORDERED: ACETAMINOPHEN IV 1000 MG/100ML (10MG/ML) IV ONE (08:00)
[2023-11-17] MEDS ORDERED: GABAPENTIN 400 MG CAP PO ONE (08:00)
[2023-11-17] MEDS ORDERED: HYDROmorphone HCL 2 MG/ML VL/or syr IV PRN (09:15)
[2023-11-17] MEDS ORDERED: LABETALOL HCL 5 MG/ML 4ML SYRINGE IV PRN (09:15)
[2023-11-17] MEDS ORDERED: oxyCODONE HCL 5MG TAB PO PRN (09:15)
[2023-11-17] MEDS ORDERED: hydrALAZINE HCL 20 MG/ML VL IV PRN (09:15)
[2023-11-17] MEDS ORDERED: FLUMAZENIL 0.1 MG/ML INJ 10ML MDV IV PRN (09:15)
[2023-11-17] MEDS ORDERED: ONDANSETRON HCL 4 MG/2 ML VIAL IV PRN (09:15)
[2023-11-17] MEDS ORDERED: fentaNYL CITRATE 100 MCG/2 ML VL IV PRN (09:15)
[2023-11-17] MEDS ORDERED: NALOXONE HCL 0.4 MG/ML VIAL IV PRN (09:15)
[2023-11-17] MEDS ORDERED: ePHEDrine SULFATE 50 MG/ML AMP IV PRN (09:15)
[2023-11-17] MEDS: MUPIROCIN 2% OINT 15gm or 22gm FOR MRSA NARES TOP SCH ×2 (11:11→20:52)
[2023-11-17] MEDS: INSULIN LANTUS (GLARGINE) 1 /0.01ml (100units/ml) SC SCH (11:18)
[2023-11-17] MEDS: ATORVASTATIN 20 MG TAB PO SCH (20:36)
[2023-11-17] MEDS: cefTRIAXone 1GM/50ML D5W 50 ML IV SCH (20:36)
[2023-11-18] VITALS (7 sets, daily range): BP systolic 109–131; BP diastolic 46–73; PULSE 64–84; RESP 19–22; TEMP 97.2–98.1; O2SAT 96–100
[2023-11-18] MEDS: VANCOMYCIN 1GM/200ML 200 ML IV SCH ×3 (01:06→20:08)
[2023-11-18] MEDS: MORPHINE SULFATE INJ 2 MG/ml SYRG IV PRN ×4 (04:11→22:48)
[2023-11-18] MEDS: InsuLIN REG 1unit/0.01ml Soln (100units/ml) SC SCH ×4 (06:10→22:00)
[2023-11-18] MEDS: ACCU-CHEK COMFORT CURVE STRIP VI SCH ×4 (06:11→22:00)
[2023-11-18] MEDS: INSULIN LANTUS (GLARGINE) 1 /0.01ml (100units/ml) SC SCH (10:38)
[2023-11-18] MEDS: MUPIROCIN 2% OINT 15gm or 22gm FOR MRSA NARES TOP SCH ×2 (11:52→22:00)
[2023-11-18] MEDS: ATORVASTATIN 20 MG TAB PO SCH (21:48)
[2023-11-18] MEDS: cefTRIAXone 1GM/50ML D5W 50 ML IV SCH (22:01)
[2023-11-19 05:00] VITALS: BP 106/70; PULSE 62; RESP 22; TEMP 98.2; O2SAT 98
[2023-11-19] MEDS: VANCOMYCIN 1GM/200ML 200 ML IV SCH (05:10)
[2023-11-19] MEDS: MORPHINE SULFATE INJ 2 MG/ml SYRG IV PRN ×2 (05:11→11:29)
[2023-11-19] MEDS: InsuLIN REG 1unit/0.01ml Soln (100units/ml) SC SCH ×2 (06:41→12:11)
[2023-11-19] MEDS: ACCU-CHEK COMFORT CURVE STRIP VI SCH ×2 (06:41→11:22)
[2023-11-19 08:00] VITALS: PULSE 88; RESP 18; O2SAT 96
[2023-11-19 09:00] VITALS: BP 109/88; PULSE 67; RESP 20; TEMP 98.4; O2SAT 100
[2023-11-19] MEDS ORDERED: INSULIN LANTUS (GLARGINE) 1 /0.01ml (100units/ml) SC SCH (10:00)
[2023-11-19] MEDS ORDERED: BACDST PO (10:14)
[2023-11-19] MEDS ORDERED: PERCOT PO (10:14)
[2023-11-19] MEDS ORDERED: [UNRECOGNIZED DRUG - CODE] XX (10:25)
[2023-11-19] MEDS ORDERED: GAUZ4PAD82 XX (10:25)
[2023-11-19] MEDS ORDERED: GAUZMIS54 XX (10:25)
[2023-11-19] MEDS: MUPIROCIN 2% OINT 15gm or 22gm FOR MRSA NARES TOP SCH (11:21)
[2023-11-19 12:05] VITALS: BP 105/65; PULSE 60; RESP 18; TEMP 97.4; O2SAT 97
[2023-11-19 13:43] VITALS: BP 105/65; PULSE 60; RESP 18; TEMP 97.4; O2SAT 97
== END 2023-11-19 15:10 | disposition home health service (06) | DRG 603 ==
LOC: ER 20:38 → OVERFLOW 11-13 05:38 → ER 11-13 05:41 → OVERFLOW 11-13 05:41 → WEST WING 11-13 23:37
PROVIDERS: ADMIT Nurse Practitioner; ATTEND Nurse Practitioner Acute Care
PROC: 0H90XZZ Drainage of Scalp Skin, External Approach (ICD-10-PCS; 2023-11-17)
PROC: 0H98XZZ Drainage of Buttock Skin, External Approach (ICD-10-PCS; principal; 2023-11-17 08:05)
DX: L05.91 Pilonidal cyst without abscess (principal); L02.811 Cutaneous abscess of head [any part, except face]; L03.811 Cellulitis of head [any part, except face]; L72.3 Sebaceous cyst; I10 Essential (primary) hypertension; E11.65 Type 2 diabetes mellitus with hyperglycemia; E66.9 Obesity, unspecified; J45.909 Unspecified asthma, uncomplicated; Z86.14 Personal history of Methicillin resistant Staphylococcus aureus infection; Z68.33 Body mass index [BMI] 33.0-33.9, adult; Z91.010 Allergy to peanuts; Z88.8 Allergy status to other drugs, medicaments and biological substances; Z91.013 Allergy to seafood; Z79.899 Other long term (current) drug therapy; Z79.891 Long term (current) use of opiate analgesic; Z79.4 Long term (current) use of insulin; Z83.3 Family history of diabetes mellitus
CPT/HCPCS: 36415; 70450; 80048; 80202; 81001; 82565; 82962; 83036; 83880; 85025; 85610; 85730; 87040; 87070; 87075; 87076; 87077; 87081; 87186; 87205; G0378; J0131; J1100; J1815; J1885; J2001; J2405; J2704; J3490

== ENCOUNTER 2024-08-09 02:13 | Inpatient (IN) | payer OTHER, MEDICAID ==
[~2024-08-09] VITALS: Ht 175.3 cm; Wt 100.2 kg
[~2024-08-09 02:13] MED LIST changes: -ATOR20TA PO; +ATOR40TA52 PO; +CLIN300C2 PO; +GAUZ4PAD82 XX; +GAUZMIS54 XX; -HYDR-4902 PO; -LEVO500T91 PO; +METF-929 PO; -MUPI2CRE17 EX; -NAP500T PO; +PERCOT PO; -SACC250C PO; +[UNRECOGNIZED DRUG - CODE] XX
[2024-08-09 03:39] LABS: Basophils # (auto) 0.1 10 ^3/uL (0-0.2); Basophils % (auto) 0.9 % (0.0-2.0); Eosinophils # (auto) 0.6 10 ^3/uL (0-0.8); Eosinophils % (auto) 6.4 % (0.0-7.0); Hematocrit 45.3 % (41.0-53.0); Hemoglobin 15.2 g/dL (13.5-17.5); Lymphocytes # (auto) 1.5 10 ^3/uL (0.4-5.4); Lymphocytes % (auto) 15.2 % (10.0-50.0); Mean Corpuscular Hemoglobin 29.3 pg (28.0-32.0); Mean Corpuscular Hgb Conc. 33.5 g/dL (32.0-36.0); Mean Corpuscular Volume 87.4 fL (80.0-100.0); Monocytes # (auto) 0.6 10 ^3/uL (0-1.3); Monocytes % (auto) 5.9 % (0.0-12.0); Neutrophils # (auto) 6.8 10 ^3/uL (1.6-8.6); Neutrophils % (auto) 71.6 % (37.0-80.0); Nucleated Red Blood Cells % 0.1 %; Platelet Count (auto) 229 10^3/uL (140-450); Red Blood Cells 5.18 10^6/uL (4.5-5.90); Red Cell Distribution Width 13.7 % (11.8-14.3); White Blood Cell 9.6 10^3/uL (4.4-10.8)
[2024-08-09 03:51] LABS: Alanine Aminotransferase 16 U/L (7-40); Albumin 4.1 g/dL (3.2-4.8); Alkaline Phosphatase 95 U/L (46-116); Anion Gap 6 (5-15); Aspartate Aminotransferase 13 U/L (13-40); BUN/Creatinine Ratio 12.1 (10.0-20.0); Blood Urea Nitrogen 17 mg/dL (9-23); Calcium 9.6 mg/dL (8.7-10.4); Carbon Dioxide 25 mmol/L (20-31); Chloride 100 mmol/L (98-107); Potassium 4.4 mmol/L (3.5-5.1); Sodium 131 mmol/L (136-145)
[2024-08-09 03:52] LABS: Bilirubin, Total 0.3 mg/dL (0.2-1.0); Glucose 491 mg/dL (74-106); Total Protein 7.7 g/dL (5.7-8.2)
[2024-08-09 03:53] LABS: Urine Bacteria None Seen /hpf (None Seen)
[2024-08-09 03:55] VITALS: PULSE 74; RESP 15; TEMP 98.5; O2SAT 95
[2024-08-09 03:59] LABS: Urine Blood Negative /uL (Negative); Urine Clarity Clear (Clear); Urine Color Light-Yellow (Yellow); Urine Protein, UAD Negative (Negative); Urine Specific Gravity 1.033 (1.001-1.035); Urine Urobilinogen Normal (Negative); Urine WBC 1 /hpf (0 - 3); Urine pH 5.5 (5.0-9.0)
[2024-08-09] MEDS: OXYCODONE W/ ACETAMINOPHEN 5/325MG TABLET PO ONE (04:14)
[2024-08-09] MEDS: SODIUM CHLORIDE 0.9% 1,000 ML IV ONE ×2 (04:15→04:53)
[2024-08-09] MEDS: cefTRIAXone 1GM/50ML D5W 50 ML IV ONE (04:15)
[2024-08-09] MEDS: OXYCODONE W/ ACETAMINOPHEN 5/325MG TABLET ONE (04:25)
[2024-08-09] MEDS: CLINDAMYCIN 900MG IV 50 ML IV ONE (04:52)
[2024-08-09] MEDS: InsuLIN REG 1unit/0.01ml Soln (100units/ml) IV ONE (04:55)
[2024-08-09 07:30] VITALS: PULSE 74; RESP 14; O2SAT 98
[2024-08-09 09:00] VITALS: BP 130/80; PULSE 73; RESP 16; O2SAT 96
[2024-08-09] MEDS ORDERED: MORPHINE SULFATE INJ 2 MG/ml SYRG IV PRN (09:30)
[2024-08-09] MEDS ORDERED: hydrALAZINE HCL 20 MG/ML VL IV PRN (09:30)
[2024-08-09] MEDS ORDERED: HYDROcodone-ACET 5/325MG TAB PO PRN (09:30)
[2024-08-09] MEDS ORDERED: ONDANSETRON HCL 4 MG/2 ML VIAL IV PRN (09:30)
[2024-08-09] MEDS ORDERED: DEXTROSE (50%) 50ML SYRG IV PRN (09:30)
[2024-08-09] MEDS ORDERED: ACCU-CHEK COMFORT CURVE STRIP VI SCH (11:30)
[2024-08-09] MEDS ORDERED: InsuLIN REG 1unit/0.01ml Soln (100units/ml) SC SCH ×2 (11:30→22:00)
[2024-08-09] MEDS ORDERED: CLINDAMYCIN 600MG IV 50 ML IV SCH (14:00)
[2024-08-09] MEDS ORDERED: ATORVASTATIN 20 MG TAB PO SCH (22:00)
[2024-08-10] MEDS ORDERED: cefTRIAXone 1GM/50ML D5W 50 ML IV SCH (09:00)
== END 2024-08-09 09:45 | disposition left against medical advice (07) | DRG 603 ==
LOC: ER 02:13 → OVERFLOW 09:27
PROVIDERS: ADMIT Registered Nurse General Practice; ATTEND Registered Nurse General Practice
DX: L02.811 Cutaneous abscess of head [any part, except face] (principal); E87.1 Hypo-osmolality and hyponatremia; Z53.29 Procedure and treatment not carried out because of patient's decision for other reasons; L02.415 Cutaneous abscess of right lower limb; J45.909 Unspecified asthma, uncomplicated; I10 Essential (primary) hypertension; E11.65 Type 2 diabetes mellitus with hyperglycemia; Z79.4 Long term (current) use of insulin; Z83.3 Family history of diabetes mellitus; Z79.899 Other long term (current) drug therapy
CPT/HCPCS: 36415; 80053; 81001; 82962; 83605; 85025; 87040; 87205; 96365; G0378; J1815; J3490

== ENCOUNTER 2024-09-14 23:05 | Inpatient (IN) | payer OTHER, MEDICAID ==
[~2024-09-14] VITALS: Ht 175.3 cm; Wt 102.6 kg
[2024-09-14] MEDS: SODIUM CHLORIDE 0.9% 1,000 ML IV ONE (04:00)
--- NOTE | 2024-09-14 23:40 | ED.PDOC ---
History of Present Illness(SKN HPI Comments 38-year-old male presents to ER with complaints of abscess to upper back x 3 days. Patient with past medical history significant for poorly controlled type II DM reports he started developing an abscess to the upper back 3 days ago with associated fever, body aches, chills, fatigue and n/v. Patient is often admitted here for debridement of abscesses and need for IV antibiotics. He rates his current pain a 10/10 and states he has been taking Tylenol for his pain without relief. Blood sugar on arrival to [facility] was noted to be 361. Denies drainage or any further symptoms/complaints Chief Complaint: Abscess Time Seen by MD: 23:20 Primary Care Provider: ALBARO History of Present Illness: Nurses Notes, Medications, Allergies Allergies: Coded Allergies: Fish Allergy (Verified Allergy, Unknown, 01/24/21) Lactose Intolerance (GI) (Verified Allergy, Unknown, 01/24/21) Peanut-containing Drug Products (Verified Allergy, Unknown, 01/24/21) Shellfish-derived Products (Verified Allergy, Unknown, 07/12/20) Home Meds Active Scripts Clindamycin Hcl (Cleocin) 300 Mg Cap, 300 MG PO Q8HR for 10 Days, #30 CAP Prov:HUA GOLDEN MD 01/10/24 Metformin HCl (Metformin Hydrochloride) 1,000 Mg Tab, 1000 MG PO BID for 30 Days, #60 TAB Prov:HUA GOLDEN MD 01/10/24 Insulin Glargine (Lantus) 100 Unit/Ml Inj, 20 UNIT SC BID, #1000 UNITS Prov:HUA GOLDEN MD 01/10/24 Adhesive Tape (EQL ADHESIVE TAPE 1/2"X10) 1 Mg/2 X10yd Tap, MG XX, #1 Prov:MELISSA AIKEN CHIEF COMPLIANCE OFFICER 11/19/23 Gauze Pads & Dressings (Curity Iodoform Packing S) Strip Mis, BOT XX EOD, #1 Prov:MELISSA AIKEN CHIEF COMPLIANCE OFFICER 11/19/23 Gauze Pads & Dressings (Curity Gauze Sponge 4"X4") 4 " Pad, " XX DAILY, #14 Prov:MELISSA AIKEN CHIEF COMPLIANCE OFFICER 24 Sulfamethoxazole W/Trimethopri (Bactrim Ds Tablet) 1 Tab Tb, 1 TAB PO BID for 7 Days, #14 TAB Prov:MELISSA AIKEN CHIEF COMPLIANCE OFFICER 11/19/23 Oxycodone W/ Acetaminophen (Percocet 5/325MG) 1 Tab Tb, 1 TAB PO QID for 7 Days, #28 TAB Prov:MELISSA AIKEN CHIEF COMPLIANCE OFFICER 11/19/23 Metformin Hydrochloride (Metformin Hcl) 1,000 Mg Tab, 1 TAB PO BID, #60 TAB Prov:THERON STARR MD 01/26/21 Insulin Glargine (Lantus) 100 Unit/Ml Inj, 20 UNIT SC HS for 30 Days, #30 INJ Prov:THERON STARR MD 01/26/21 Reported Medications Atorvastatin Calcium (ATORVASTATIN CALCIUM) 40 Mg Tab, 40 MG PO DAILY, TAB 11/14/23 Albuterol Sulfate (VENTOLIN MDI) 90 Mcg Ih, 90 MCG IN Q4HPRN PRN for SHORTNESS OF BREATH 11/18/15 Information Source: Patient Mode of Arrival: Ambulatory Past Medical History PAST MEDICAL HISTORY: Asthma, DM, HTN Surgical History: Denies all surgeries Family History Family History: Family hx of DM, Family hx of heart paul Social History Smoker: Non-Smoker Alcohol: Denies ETOH Use Drugs: Marijuana Lives In: Home Constitutional: reports: others (As stated in HPI) EENTM: denies: blurred vision, double vision, ear bleeding, ear discharge, ear drainage, ear pain, ear ringing, eye pain, eye redness, hearing loss, mouth pain, mouth swelling, nasal discharge, nose bleeding, nose congestion, nose pain, photophobia, tearing, throat pain, throat swelling, voice changes, others Respiratory: denies: cough, hemoptysis, orthopnea, SOB at rest, shortness of breath, SOB with excertion, stridor, wheezing, others Cardiovascular: denies: chest pain, dizzy spells, diaphoresis, Dyspnea on exertion, edema, irregular heart beat, left arm pain, lightheadedness, palpitations, PND, syncope, others Gastrointestinal: reports: others (As stated in HPI) Genitourinary: denies: burning, dysuria, flank pain, frequency, hematuria, incontinence, penile discharge, penile sore, pain, testicle pain, testicle swelling, urgency, others Neurological: denies: dizziness, fainting, headache, left sided numbness, left sided weakness, numbness, paresthesia, pre-existing deficit, right sided numbness, right sided weakness, seizure, speech problems, tingling, tremors, weakness, others Musculoskeletal: denies: back pain, gout, joint pain, joint swelling, muscle pain, muscle stiffness, neck pain, others Integumetry: reports: others (As stated in HPI) Allergic/Immunocompromised: denies: Difficulty Healing, Frequent Infections, Hives, Itching, others Hematologic/Lymphatic: denies: anemia, blood clots, easy bleeding, easy bruising, swollen glands, others Endocrine: denies: excessive hunger, excessive sweating, excessive thirst, excessive urination, flushing, intolerance to cold, intolerance to heat, unexplained weight gain, unexplained weight loss, others Psychiatric: denies: anxiety, bipolar disorder, depression, hopeless, panic disorder, schizophrenia, sleepless, suicidal, others Physical Exam General Appearance: No Apparent Distress, Obese HEENT: PERRL/EOMI Neck: Full Range of Motion, Non-Tender, Normal Respiratory: Chest Non-Tender, Lungs Clear, No Accessory Muscle Use, No Respiratory Distress, Normal Breath Sounds Cardiovascular: No Murmur, No Gallop, Regular Rate/Rhythm Breast Exam: Deferred Gastrointestinal: Non Tender, No Pulsatile Mass, Soft Genitalia: Deferred Pelvic: Deferred Rectal: Deferred Extremities: No calf tenderness, Normal capillary refill, Normal inspection, Normal range of motion, Non-tender, No pedal edema Musculoskeletal : Extremity Location: Back (Moderate swelling/TTP/with induration/increased warmth noted to upper back. No drainage/fluctuance noted) Neurologic: Alert, traffic monitor specialist II-XII nml as Tested, No Motor Deficits, Normal Affect, Normal Mood, No Sensory Deficits Cerebellar Function: Normal Reflexes: Normal Skin: Dry, Warm Lymphatic: No Adenopathy Was a procedure done? Was a procedure done?: No Sedation Sedation?: No Differential Diagnosis (INTG) Differential Diagnosis: Abrasion Differential Diagnosis: Abscess Differential Diagnosis: Puncture Wound, Retained Foreign Body X-Ray, Labs, Meds, VS Vital Signs Date Time Temp Pulse Resp B/P (MAP) Pulse Ox O2 Delivery O2 Flow Rate FiO2 09/15/24 01:19 98.8 99 13 148/76 (100) 97 98.8 09/14/24 23:11 Room Air 09/14/24 23:11 98.4 105 18 144/84 (104) 97 98.4 09/14/24 23:11 98.4 105 18 144/94 (111) 97 Lab Test 09/15/24 04:02 09/14/24 23:46 Range/Units POC Glucose 399 H 70-106 mg/dl White Blood Count 16.2 H 4.4-10.8 10^3/uL Red Blood Count 4.62 4.5-5.90 10^6/uL Hemoglobin 13.3 L 13.5-17.5 g/dL Hematocrit 40.3 L 41.0-53.0 % Mean Corpuscular Volume 87.2 80.0-100.0 fL Mean Corpuscular Hemoglobin 28.7 28.0-32.0 pg Mean Corpuscular Hemoglobin Concent 32.9 32.0-36.0 g/dL Red Cell Distribution Width 14.5 H 11.8-14.3 % Platelet Count 212 140-450 10^3/uL Mean Platelet Volume 10.8 6.9-10.8 fL Neutrophils (%) (Auto) 83.3 H 37.0-80.0 % Lymphocytes (%) (Auto) 6.1 L 10.0-50.0 % Monocytes (%) (Auto) 8.8 0.0-12.0 % Eosinophils (%) (Auto) 1.4 0.0-7.0 % Basophils (%) (Auto) 0.4 0.0-2.0 % Neutrophils # (Auto) 13.5 H 1.6-8.6 10 ^3/uL Lymphocytes # (Auto) 1.0 0.4-5.4 10 ^3/uL Monocytes # (Auto) 1.4 H 0-1.3 10 ^3/uL Eosinophils # (Auto) 0.2 0-0.8 10 ^3/uL Basophils # (Auto) 0.1 0-0.2 10 ^3/uL Nucleated Red Blood Cells 0.1 % Sodium Level 132 L 136-145 mmol/L Potassium Level 3.8 3.5-5.1 mmol/L Chloride Level 100 98-107 mmol/L Carbon Dioxide Level 22 20-31 mmol/L Anion Gap 10 5-15 Blood Urea Nitrogen 15 9-23 mg/dL Creatinine 1.24 0.700-1.30 mg/dL Glomerular Filtration Rate Calc 75 >90 mL/min BUN/Creatinine Ratio 12.1 10.0-20.0 Serum Glucose 353 H 74-106 mg/dL Lactic Acid Level 1.3 0.4-2.0 mmol/L Calcium Level 10.0 8.7-10.4 mg/dL Current Medications Medications (Trade) Dose Ordered Sig/Helen Route Start Time Stop Time Status Last Admin Clindamycin Phosphate 50 ml @ 50 mls/hr ONCE ONCE IV 09/14/24 23:30 09/15/24 00:29 DC 09/15/24 02:28 Ceftriaxone Sodium 50 ml @ 100 mls/hr ONCE ONCE IV 09/14/24 23:30 09/14/24 23:59 DC 09/15/24 01:28 Ketorolac Tromethamine (Toradol Injection) 30 mg ONCE ONCE IV 09/14/24 23:45 09/14/24 23:46 DC 09/15/24 01:26 Insulin Glargine (Lantus) 10 units ONCE ONCE SC 09/15/24 01:30 09/15/24 01:31 DC 09/15/24 03:50 CBC reviewed-WBC 16.2 BMP reviewed-sodium 132, serum glucose 353 Lactic acid reviewed-normal Blood cultures ordered Hep-Lock IV ordered Clindamycin 900 mg IV ordered Rocephin 1 g IV ordered NS 1 L IV ordered Toradol 30 mg IV ordered Insulin 10 units SC ordered Previous chart visit was reviewed Patient is a poorly controlled diabetic and admitted to hospitalist due to cellulitis of upper back and need for IV antibiotics Time of 1ST Reevaluation: 23:32 Reevaluation 1ST: N/A Patient Education/Counseling: Diagnosis, Treatment, Prognosis, Need For Follow Up Family Education/Counseling: No Family Present Departure 1 Departure Time of Disposition: 00:32 Impression: Primary Impression: Cellulitis of back Additional Impression: Poorly controlled diabetes mellitus Disposition: ADMITTED INPATIENT Condition: Stable Critical Care Note Critical Care Time?: No Stability Stability form required: No Heart Score Heart Score: Heart Score Response (Comments) Value History N/A 0 EKG N/A 0 Age N/A 0 Risk Factors N/A 0 Troponin N/A 0 Total 0 MICHELLE MATTHEWS Sep 14, 2024 23:40
[2024-09-15 00:18] LABS: Basophils # (auto) 0.1 10 ^3/uL (0-0.2); Basophils % (auto) 0.4 % (0.0-2.0); Eosinophils # (auto) 0.2 10 ^3/uL (0-0.8); Eosinophils % (auto) 1.4 % (0.0-7.0); Hematocrit 40.3 % (41.0-53.0); Hemoglobin 13.3 g/dL (13.5-17.5); Lymphocytes % (auto) 6.1 % (10.0-50.0); Mean Corpuscular Hemoglobin 28.7 pg (28.0-32.0); Mean Corpuscular Hgb Conc. 32.9 g/dL (32.0-36.0); Mean Corpuscular Volume 87.2 fL (80.0-100.0); Monocytes # (auto) 1.4 10 ^3/uL (0-1.3); Monocytes % (auto) 8.8 % (0.0-12.0); Neutrophils # (auto) 13.5 10 ^3/uL (1.6-8.6); Neutrophils % (auto) 83.3 % (37.0-80.0); Nucleated Red Blood Cells % 0.1 %; Platelet Count (auto) 212 10^3/uL (140-450); Red Blood Cells 4.62 10^6/uL (4.5-5.90); Red Cell Distribution Width 14.5 % (11.8-14.3); White Blood Cell 16.2 10^3/uL (4.4-10.8)
[2024-09-15 00:25] LABS: Chloride 100 mmol/L (98-107); Potassium 3.8 mmol/L (3.5-5.1); Sodium 132 mmol/L (136-145)
[2024-09-15 00:26] LABS: Anion Gap 10 (5-15); Carbon Dioxide 22 mmol/L (20-31)
[2024-09-15 00:31] LABS: BUN/Creatinine Ratio 12.1 (10.0-20.0); Blood Urea Nitrogen 15 mg/dL (9-23); Glucose 353 mg/dL (74-106)
[2024-09-15] MEDS: KETOROLAC TROMETH 30 MG/ML 1ML VIAL IV ONE ×2 (01:26→11:48)
[2024-09-15] MEDS: cefTRIAXone 1GM/50ML D5W 50 ML IV ONE (01:28)
[2024-09-15] MEDS: CLINDAMYCIN 900MG IV 50 ML IV ONE (02:28)
[2024-09-15] MEDS: INSULIN LANTUS (GLARGINE) 1 /0.01ml (100units/ml) SC ONE (03:50)
[2024-09-15] MEDS ORDERED: DEXTROSE (50%) 50ML SYRG IV PRN (05:00)
--- NOTE | 2024-09-15 05:04 | DVHHP2 ---
History of Present Illness Reason for Visit: Upper back tenderness History of Present Illness 38-year-old male presents for evaluation of upper back tenderness at developed three days ago. Patient reports a history of cellulitis and has been admitted on multiple occasions for IV antibiotics. Reports tenderness to the touch re ports intermittent chills. Denies trauma to the area. No other acute complaints reported. Past Medical History Diabetes mellitus, dyslipidemia and asthma Past Surgical History Denies Family History Noncontributory Smoke: No ALCOHOL: none Drugs: Marijuana Review of Systems Review of Systems Review of systems are currently negative otherwise addressed in HPI. Allergies: Coded Allergies: Fish Allergy (Verified Allergy, Unknown, 01/24/21) Lactose Intolerance (GI) (Verified Allergy, Unknown, 01/24/21) Peanut-containing Drug Products (Verified Allergy, Unknown, 01/24/21) Shellfish-derived Products (Verified Allergy, Unknown, 07/12/20) Medications Current Medications Medications Dose Ordered Sig/Helen Route Start Time Stop Time Status Last Admin Dose Admin Ceftriaxone Sodium 50 ml @ 100 mls/hr DAILY@09 IV 09/15/24 09:00 UNV Clindamycin Phosphate 50 ml @ 50 mls/hr Q8HR IV 09/15/24 06:00 UNV Atorvastatin Calcium 40 mg HS PO 09/15/24 22:00 UNV Diagnostic Test (Pha) 1 strip Q6HR 09/15/24 06:00 UNV Insulin Human Regular Q6HR SC 09/15/24 06:00 UNV Dextrose 50 ml UD PRN IV 09/15/24 05:00 UNV Acetaminophen/ Hydrocodone Bitart 1 tab Q4HP PRN PO 09/15/24 05:00 UNV Temazepam 15 mg QHSP PRN PO 09/15/24 05:00 UNV Ondansetron HCl 4 mg Q4HP PRN IV 09/15/24 05:00 UNV Acetaminophen 650 mg Q6HP PRN PO 09/15/24 05:00 UNV Morphine Sulfate 2 mg Q8HPRN PRN IV 09/15/24 05:00 UNV Exam Vital Signs Vital Signs Date Time Temp Pulse Resp B/P (MAP) Pulse Ox O2 Delivery O2 Flow Rate FiO2 09/15/24 01:19 98.8 99 13 148/76 (100) 97 98.8 09/14/24 23:11 Room Air Exam Gen: 39-year-old male in mild distress Skin: Warm, dry, normal color and texture, upper back with mild induration, tenderness no fluctuance HEENT: Normocephalic atraumatic, mucous membranes moist and pink. Neck: Cervical and supraclavicular nodes normal without enlargement, trachea is midline, thyroid gland is normal without masses. Pulmonary: Clear to auscultation and percussion bilaterally. Cardiac: Regular rate and rhythm. No murmur Abdomen: Soft, nontender, nondistended, bowel sounds present all 4 quadrants, no guarding, no rigidity, no organomegaly. Extremities: No cyanosis, clubbing, no edema Neuro: Cranial nerves II through XII grossly intact, normal affect and speech, no focal motor deficits. Labs/Xrays Labs Test 09/15/24 04:02 09/14/24 23:46 Range/Units POC Glucose 399 H 70-106 mg/dl White Blood Count 16.2 H 4.4-10.8 10^3/uL Red Blood Count 4.62 4.5-5.90 10^6/uL Hemoglobin 13.3 L 13.5-17.5 g/dL Hematocrit 40.3 L 41.0-53.0 % Mean Corpuscular Volume 87.2 80.0-100.0 fL Mean Corpuscular Hemoglobin 28.7 28.0-32.0 pg Mean Corpuscular Hemoglobin Concent 32.9 32.0-36.0 g/dL Red Cell Distribution Width 14.5 H 11.8-14.3 % Platelet Count 212 140-450 10^3/uL Mean Platelet Volume 10.8 6.9-10.8 fL Neutrophils (%) (Auto) 83.3 H 37.0-80.0 % Lymphocytes (%) (Auto) 6.1 L 10.0-50.0 % Monocytes (%) (Auto) 8.8 0.0-12.0 % Eosinophils (%) (Auto) 1.4 0.0-7.0 % Basophils (%) (Auto) 0.4 0.0-2.0 % Neutrophils # (Auto) 13.5 H 1.6-8.6 10 ^3/uL Lymphocytes # (Auto) 1.0 0.4-5.4 10 ^3/uL Monocytes # (Auto) 1.4 H 0-1.3 10 ^3/uL Eosinophils # (Auto) 0.2 0-0.8 10 ^3/uL Basophils # (Auto) 0.1 0-0.2 10 ^3/uL Nucleated Red Blood Cells 0.1 % Sodium Level 132 L 136-145 mmol/L Potassium Level 3.8 3.5-5.1 mmol/L Chloride Level 100 98-107 mmol/L Carbon Dioxide Level 22 20-31 mmol/L Anion Gap 10 5-15 Blood Urea Nitrogen 15 9-23 mg/dL Creatinine 1.24 0.700-1.30 mg/dL Glomerular Filtration Rate Calc 75 >90 mL/min BUN/Creatinine Ratio 12.1 10.0-20.0 Serum Glucose 353 H 74-106 mg/dL Lactic Acid Level 1.3 0.4-2.0 mmol/L Calcium Level 10.0 8.7-10.4 mg/dL Assessment/Plan Assessment/Plan Assessment Cellulitis of upper back Uncontrolled diabetes mellitus Leukocytosis Plan Admit the patient to [facility] to the hospitalist Rocephin/clindamycin Pain management Continue treatment per orders. Plan discussed with: Patient My Orders Orders - PARKER LEWIS Procedure Category Date Status Time Ceftriaxone 1gm/50ml PHA 09/15/24 Logged D5w (Rocephin) 09:00 Clindamycin 600mg Iv PHA 09/15/24 Logged (Cleocin Iv) 06:00 Atorvastatin (Lipitor) PHA 09/15/24 Logged 22:00 Consistent DIET 09/15/24 Transmitted Carb(Ccho)Diabetes Breakfast Glucose Blood PHA 09/15/24 Logged (Accu-Chek Comfort 06:00 Insulin R (Human) PHA 09/15/24 Logged (Insulin R) 06:00 Dextrose 50% Syringe PHA 09/15/24 Logged 05:00 Admit ADMIT 09/15/24 Transmitted 04:47 Hydrocodone-Acet PHA 09/15/24 Logged 5/325mg Tab (Racine 05:00 Temazepam (Restoril) PHA 09/15/24 Logged 05:00 Ondansetron Hcl PHA 09/15/24 Logged (Zofran) 05:00 Complete Blood Count LAB 09/16/24 Verified 04:00 Condition: Stable DELIA 09/15/24 In Process 04:47 Acetaminophen Tablet PHA 09/15/24 Logged (Tylenol Tablet) 05:00 Bedrest With Bathroom DELIA 09/15/24 In Process Privileg 04:47 Morphine Sulfate PHA 09/15/24 Logged Injection 05:00 Basic Metabolic Panel LAB 09/16/24 Verified 04:00 Date of Service: Sep 15, 2024 Billing Provider: PARKER LEWIS Common Visit Codes: [id number] INP/OBS CARE (MOD) PARKER LEWIS Sep 15, 2024 05:04
[2024-09-15 05:30] VITALS: RESP 16; O2SAT 94
[2024-09-15] MEDS: HYDROcodone-ACET 5/325MG TAB PO PRN (05:53)
[2024-09-15] MEDS ORDERED: CLINDAMYCIN 600MG IV 50 ML IV SCH (06:00)
[2024-09-15] MEDS: InsuLIN REG 1unit/0.01ml Soln (100units/ml) SC SCH (06:14)
[2024-09-15] MEDS: ACCU-CHEK COMFORT CURVE STRIP VI SCH (06:14)
[2024-09-15 08:00] VITALS: PULSE 99; RESP 16; O2SAT 97
[2024-09-15] MEDS: ONDANSETRON HCL 4 MG/2 ML VIAL IV PRN (08:42)
[2024-09-15] MEDS: MORPHINE SULFATE INJ 2 MG/ml SYRG IV PRN (08:42)
[2024-09-15] MEDS: cefTRIAXone 1GM/50ML D5W 50 ML IV SCH (09:35)
[2024-09-15] MEDS: CLINDAMYCIN 600MG IV 50 ML IV SCH (10:34)
--- NOTE | 2024-09-15 13:17 | DVHPN2 ---
Reviewed: Care Plan, H&P, Labs, Medications, Previous Orders, Radiology Changes from previous H/P or p: No Changes Objective Vitals Vital Signs Date Time Temp Pulse Resp B/P (MAP) Pulse Ox O2 Delivery O2 Flow Rate FiO2 09/15/24 12:00 60 17 112/84 (93) 92 09/15/24 08:00 99.5 99.5 09/15/24 08:00 Room Air* 0 21 Intake/Output Intake and Output 09/15/24 07:00 Intake Total 50 ml Balance 50 ml Intake IV Total 50 ml Medications Current Medications Medications Dose Ordered Sig/Helen Route Start Time Stop Time Status Last Admin Dose Admin Ceftriaxone Sodium 50 ml @ 100 mls/hr DAILY@09 IV 09/15/24 09:00 09/15/24 09:35 100 MLS/HR Atorvastatin Calcium 40 mg HS PO 09/15/24 22:00 Diagnostic Test (Pha) 1 strip Q6HR 09/15/24 06:00 09/15/24 12:00 1 STRIP Insulin Human Regular Q6HR SC 09/15/24 06:00 09/15/24 11:58 6 UNITS Dextrose 50 ml UD PRN IV 09/15/24 05:00 Acetaminophen/ Hydrocodone Bitart 1 tab Q4HP PRN PO 09/15/24 05:00 09/15/24 05:53 1 TAB Temazepam 15 mg QHSP PRN PO 09/15/24 05:00 Ondansetron HCl 4 mg Q4HP PRN IV 09/15/24 05:00 09/15/24 08:42 4 MG Acetaminophen 650 mg Q6HP PRN PO 09/15/24 05:00 Morphine Sulfate 2 mg Q8HPRN PRN IV 09/15/24 05:00 09/15/24 08:42 2 MG Clindamycin Phosphate 50 ml @ 50 mls/hr Q8H IV 09/15/24 10:00 09/15/24 10:34 50 MLS/HR Laboratory Results Laboratory Tests 09/14/24 23:46 Chemistry Test 09/14/24 23:46 Calcium Level 10.0 mg/dL (8.7-10.4) Labs and/or images reviewed: Labs reviewed by me, Image(s) reviewed by me Assessment/Plan Assessment/Plan Cellulitis left upper back: Rocephin clindamycin blood cultures History of recurrent cellulitis Uncontrolled diabetes: Insulin sliding scale we will check A1c Hypercholesterolemia History of asthma Time spent 55 minutes Plan discussed with: Patient My Orders Orders - VALENTINO BORGES MD Procedure Category Date Status Time Hemoglobin A1c LAB 09/15/24 Transmitted 13:15 Date of Service: Sep 15, 2024 Billing Provider: VALENTINO BORGES MD Common Visit Codes: [id number] INP/OBS CARE(HIGH) VALENTINO BORGES MD Sep 15, 2024 13:17
[2024-09-15 19:56] VITALS: BP 128/85; PULSE 113; RESP 20; TEMP 102.1; O2SAT 95
[2024-09-15] MEDS: ACETAMINOPHEN 325 MG TAB PO PRN (20:03)
[2024-09-15] MEDS: TEMAZEPAM 15 MG CAP PO PRN (21:21)
[2024-09-15] MEDS: ATORVASTATIN 20 MG TAB PO SCH (21:56)
[2024-09-15 22:41] VITALS: BP 136/91; PULSE 97; RESP 18; TEMP 99.9; O2SAT 94
[2024-09-16] VITALS (8 sets, daily range): BP systolic 103–139; BP diastolic 53–85; PULSE 68–111; RESP 17–20; TEMP 98–100.4; O2SAT 95–99
[2024-09-16 07:25] LABS: Basophils # (auto) 0.1 10 ^3/uL (0-0.2); Basophils % (auto) 0.6 % (0.0-2.0); Eosinophils # (auto) 0.3 10 ^3/uL (0-0.8); Eosinophils % (auto) 1.7 % (0.0-7.0); Hematocrit 38.3 % (41.0-53.0); Hemoglobin 13.1 g/dL (13.5-17.5); Lymphocytes # (auto) 1.4 10 ^3/uL (0.4-5.4); Lymphocytes % (auto) 8.9 % (10.0-50.0); Mean Corpuscular Hemoglobin 29.4 pg (28.0-32.0); Mean Corpuscular Hgb Conc. 34.3 g/dL (32.0-36.0); Mean Corpuscular Volume 85.9 fL (80.0-100.0); Monocytes # (auto) 1.5 10 ^3/uL (0-1.3); Monocytes % (auto) 9.2 % (0.0-12.0); Neutrophils # (auto) 12.7 10 ^3/uL (1.6-8.6); Neutrophils % (auto) 79.6 % (37.0-80.0); Platelet Count (auto) 239 10^3/uL (140-450); Red Blood Cells 4.46 10^6/uL (4.5-5.90); Red Cell Distribution Width 13.7 % (11.8-14.3)
[2024-09-16 07:28] LABS: Chloride 100 mmol/L (98-107); Potassium 3.6 mmol/L (3.5-5.1); Sodium 133 mmol/L (136-145)
[2024-09-16 07:29] LABS: Anion Gap 11 (5-15); Carbon Dioxide 22 mmol/L (20-31)
[2024-09-16 07:30] LABS: Calcium 9.9 mg/dL (8.7-10.4)
[2024-09-16 07:35] LABS: BUN/Creatinine Ratio 14.8 (10.0-20.0); Blood Urea Nitrogen 17 mg/dL (9-23); Glucose 202 mg/dL (74-106)
--- NOTE | 2024-09-16 12:55 | DVHPN2 ---
Reviewed: Care Plan, H&P, Labs, Medications, Previous Orders, Radiology Changes from previous H/P or p: No Changes Objective Vitals Vital Signs Date Time Temp Pulse Resp B/P (MAP) Pulse Ox O2 Delivery O2 Flow Rate FiO2 09/16/24 12:43 99.9 96 18 135/53 (80) 95 99.9 09/15/24 21:28 Room Air* 0 21 Intake/Output Intake and Output 09/16/24 07:00 Intake Total 200 ml Balance 200 ml Intake IV Total 200 ml Medications Current Medications Medications Dose Ordered Sig/Helen Route Start Time Stop Time Status Last Admin Dose Admin Ceftriaxone Sodium 50 ml @ 100 mls/hr DAILY@09 IV 09/15/24 09:00 09/16/24 08:59 100 MLS/HR Atorvastatin Calcium 40 mg HS PO 09/15/24 22:00 09/15/24 21:56 40 MG Diagnostic Test (Pha) 1 strip Q6HR 09/15/24 06:00 09/16/24 12:07 1 STRIP Insulin Human Regular Q6HR SC 09/15/24 06:00 09/16/24 12:08 6 UNITS Dextrose 50 ml UD PRN IV 09/15/24 05:00 Acetaminophen/ Hydrocodone Bitart 1 tab Q4HP PRN PO 09/15/24 05:00 09/16/24 09:19 1 TAB Temazepam 15 mg QHSP PRN PO 09/15/24 05:00 09/15/24 21:21 15 MG Ondansetron HCl 4 mg Q4HP PRN IV 09/15/24 05:00 09/15/24 08:42 4 MG Acetaminophen 650 mg Q6HP PRN PO 09/15/24 05:00 09/15/24 20:03 650 MG Morphine Sulfate 2 mg Q8HPRN PRN IV 09/15/24 05:00 09/15/24 19:55 2 MG Clindamycin Phosphate 50 ml @ 50 mls/hr Q8H IV 09/15/24 10:00 09/16/24 10:01 50 MLS/HR Laboratory Results Laboratory Tests 09/16/24 06:40 Chemistry Test 09/16/24 06:40 Calcium Level 9.9 mg/dL (8.7-10.4) HgA1c, TSH Test 09/15/24 13:42 Hemoglobin A1c 13.3 % A1C (<5.7) H Microbiology Microbiology Date/Time Source Procedure Growth Status 09/14/24 23:53 Blood Blood Culture - Preliminary Resulted Labs and/or images reviewed: Labs reviewed by me, Image(s) reviewed by me Assessment/Plan Assessment/Plan Cellulitis left upper back: Rocephin clindamycin blood cultures Gram-positive cocci in clusters, possible contamination History of recurrent cellulitis Uncontrolled diabetes: Insulin sliding scale we will check A1c Hypercholesterolemia History of asthma Time spent 55 minutes Plan discussed with: Patient Date of Service: Sep 16, 2024 Billing Provider: VALENTINO BORGES MD Common Visit Codes: [id number] INP/OBS CARE(HIGH) VALENTINO BORGES MD Sep 16, 2024 12:55
[2024-09-16] MEDS: KETOROLAC TROMETH 30 MG/ML 1ML VIAL IV PRN (16:10)
[2024-09-17 01:00] VITALS: BP 126/66; PULSE 96; RESP 20; TEMP 99.9; O2SAT 97
[2024-09-17 05:00] VITALS: BP 116/74; PULSE 91; RESP 20; TEMP 98.6; O2SAT 96
[2024-09-17 09:00] VITALS: BP 126/61; PULSE 81; RESP 18; TEMP 98.1; O2SAT 97
--- NOTE | 2024-09-17 11:55 | DVHPN2 ---
Reviewed: Care Plan, H&P, Labs, Medications, Previous Orders, Radiology Changes from previous H/P or p: No Changes Objective Vitals Vital Signs Date Time Temp Pulse Resp B/P (MAP) Pulse Ox O2 Delivery O2 Flow Rate FiO2 09/17/24 09:00 98.1 81 18 126/61 (82) 97 98.1 09/17/24 08:00 Room Air* 0 21 Intake/Output Intake and Output 09/17/24 07:00 Intake Total 950 ml Balance 950 ml Intake Oral 800 ml IV Total 150 ml # Voids 2 Medications Current Medications Medications Dose Ordered Sig/Helen Route Start Time Stop Time Status Last Admin Dose Admin Ceftriaxone Sodium 50 ml @ 100 mls/hr DAILY@09 IV 09/15/24 09:00 09/17/24 09:02 100 MLS/HR Atorvastatin Calcium 40 mg HS PO 09/15/24 22:00 09/16/24 21:58 40 MG Diagnostic Test (Pha) 1 strip Q6HR 09/15/24 06:00 09/17/24 06:00 1 STRIP Insulin Human Regular Q6HR SC 09/15/24 06:00 09/17/24 06:01 8 UNITS Dextrose 50 ml UD PRN IV 09/15/24 05:00 Acetaminophen/ Hydrocodone Bitart 1 tab Q4HP PRN PO 09/15/24 05:00 09/16/24 09:19 1 TAB Temazepam 15 mg QHSP PRN PO 09/15/24 05:00 09/17/24 01:29 15 MG Ondansetron HCl 4 mg Q4HP PRN IV 09/15/24 05:00 09/15/24 08:42 4 MG Acetaminophen 650 mg Q6HP PRN PO 09/15/24 05:00 09/15/24 20:03 650 MG Morphine Sulfate 2 mg Q8HPRN PRN IV 09/15/24 05:00 09/15/24 19:55 2 MG Clindamycin Phosphate 50 ml @ 50 mls/hr Q8H IV 09/15/24 10:00 09/17/24 09:02 50 MLS/HR Ketorolac Tromethamine 30 mg Q6HPRN PRN IV 09/16/24 14:00 09/21/24 13:59 09/17/24 09:02 30 MG Laboratory Results Laboratory Tests 09/16/24 06:40 Microbiology Microbiology Date/Time Source Procedure Growth Status 09/14/24 23:53 Blood Blood Culture - Preliminary Staphylococcus aureus Resulted Labs and/or images reviewed: Labs reviewed by me, Image(s) reviewed by me Assessment/Plan Assessment/Plan Cellulitis with possible abscess right interscapular area : Rocephin clindamycin chest ultrasound surgical consult for Dr. Coronado Bacteremia with possible MRSA: Clindamycin History of recurrent cellulitis Uncontrolled diabetes A1c 13.5: Insulin sliding scale , diabetic education Hypercholesterolemia History of asthma Time spent 55 minutes Plan discussed with: Patient My Orders Orders - VALENTINO BORGES MD Procedure Category Date Status Time Ketorolac Injection PHA 09/16/24 In Process (Toradol Injection) 14:00 Date of Service: Sep 17, 2024 Billing Provider: VALENTINO BORGES MD Common Visit Codes: [id number] INP/OBS CARE(HIGH) VALENTINO BORGES MD Sep 17, 2024 11:55
[2024-09-17 13:00] VITALS: BP 108/62; PULSE 91; RESP 18; TEMP 98.1; O2SAT 96
--- NOTE | 2024-09-17 14:56 | DVH ---
Right Chest Sonogram Date: 09/17/2024 01:10 PM Clinical history: Right interscapular abscess TECHNIQUE: Multiple longitudinal and transverse images were obtained through the right back in the ar ea of interest. Images submitted: [id number] Findings: Limited sonographic evaluation of the right chest was performed to localize and andrés fluid for thorac entesis. There is a hyperechoic area over the right posterior thoracic region may represent small abs cess or area of edema. IMPRESSION: 1. 1.5 x 1.4 x 10.7 cm hyperechoic area in the back on the right. This may represent abscess or alejandro a.
[2024-09-17 17:00] VITALS: BP 125/66; PULSE 85; RESP 17; TEMP 98; O2SAT 97
[2024-09-17 20:00] VITALS: PULSE 86; RESP 19
[2024-09-18 01:00] VITALS: BP 142/70; PULSE 91; RESP 16; TEMP 99.5; O2SAT 98
[2024-09-18 09:00] VITALS: BP 146/75; PULSE 66; RESP 18; TEMP 97.9; O2SAT 97
[2024-09-18 13:00] VITALS: BP 128/78; PULSE 70; RESP 16; TEMP 97.7; O2SAT 98
--- NOTE | 2024-09-18 13:06 | DVHPN2 ---
Reviewed: Care Plan, H&P, Labs, Medications, Previous Orders, Radiology Changes from previous H/P or p: No Changes Objective Vitals Vital Signs Date Time Temp Pulse Resp B/P (MAP) Pulse Ox O2 Delivery O2 Flow Rate FiO2 09/18/24 09:00 97.9 66 18 146/75 (98) 97 97.9 09/18/24 08:27 Room Air* 0 21 Intake/Output Intake and Output 09/18/24 07:00 Intake Total 2360 ml Balance 2360 ml Intake Oral 2210 ml IV Total 150 ml # Voids 3 # Bowel Movements 1 Medications Current Medications Medications Dose Ordered Sig/Helen Route Start Time Stop Time Status Last Admin Dose Admin Ceftriaxone Sodium 50 ml @ 100 mls/hr DAILY@09 IV 09/15/24 09:00 09/18/24 08:58 100 MLS/HR Atorvastatin Calcium 40 mg HS PO 09/15/24 22:00 09/17/24 21:20 40 MG Diagnostic Test (Pha) 1 strip Q6HR 09/15/24 06:00 09/18/24 12:17 1 STRIP Insulin Human Regular Q6HR SC 09/15/24 06:00 09/18/24 12:18 4 UNITS Dextrose 50 ml UD PRN IV 09/15/24 05:00 Acetaminophen/ Hydrocodone Bitart 1 tab Q4HP PRN PO 09/15/24 05:00 09/16/24 09:19 1 TAB Temazepam 15 mg QHSP PRN PO 09/15/24 05:00 09/17/24 01:29 15 MG Ondansetron HCl 4 mg Q4HP PRN IV 09/15/24 05:00 09/15/24 08:42 4 MG Acetaminophen 650 mg Q6HP PRN PO 09/15/24 05:00 09/15/24 20:03 650 MG Morphine Sulfate 2 mg Q8HPRN PRN IV 09/15/24 05:00 09/18/24 00:58 2 MG Clindamycin Phosphate 50 ml @ 50 mls/hr Q8H IV 09/15/24 10:00 09/18/24 10:08 50 MLS/HR Ketorolac Tromethamine 30 mg Q6HPRN PRN IV 09/16/24 14:00 09/21/24 13:59 09/18/24 09:32 30 MG Laboratory Results Laboratory Tests 09/16/24 06:40 Microbiology Microbiology Date/Time Source Procedure Growth Status 09/14/24 23:53 Blood Blood Culture - Final Staphylococcus aureus Complete Labs and/or images reviewed: Labs reviewed by me, Image(s) reviewed by me Assessment/Plan Assessment/Plan Cellulitis with possible abscess right interscapular area : Rocephin clindamycin chest ultrasound surgical consult for Bacteremia with possible MRSA: Clindamycin History of recurrent cellulitis Uncontrolled diabetes A1c 13.5: Insulin sliding scale , diabetic education Hypercholesterolemia History of asthma Time spent 55 minutes Plan discussed with: Patient Date of Service: Sep 18, 2024 Billing Provider: VALENTINO BORGES MD Common Visit Codes: [id number] INP/OBS CARE(HIGH) VALENTINO BORGES MD Sep 18, 2024 13:06
--- NOTE | 2024-09-18 14:10 | DVHINCON2 ---
Date of service: Sep 18, 2024 History of Present Illness 39-year-old male with a history of diabetes complaining of several day history of worsening painful swelling on his back. Patient denies any fevers or chills or drainage from the area. Past Medical History Diabetes Past Surgical History None Family History: Cardiovascular disease G8 FATHER FH: asthma Family history: Cardiovascular disease Family history: Diabetes mellitus G8 MOTHER G8 FATHER GRANDMA G8 BROTHER G8 SISTER G8 SISTER Myocardial infarction G8 FATHER Family History Noncontributory Social History Smokes marijuana. Denies any alcohol or IV drug use. Allergies: Coded Allergies: Fish Allergy (Verified Allergy, Unknown, 01/24/21) Lactose Intolerance (GI) (Verified Allergy, Unknown, 01/24/21) Peanut-containing Drug Products (Verified Allergy, Unknown, 01/24/21) Shellfish-derived Products (Verified Allergy, Unknown, 07/12/20) Home Meds Active Scripts Clindamycin Hcl (Cleocin) 300 Mg Cap, 300 MG PO Q8HR for 10 Days, #30 CAP Prov:HUA GOLDEN MD 01/10/24 Metformin HCl (Metformin Hydrochloride) 1,000 Mg Tab, 1000 MG PO BID for 30 Days , #60 TAB Prov:HUA GOLDEN MD 01/10/24 Insulin Glargine (Lantus) 100 Unit/Ml Inj, 20 UNIT SC BID, #1000 UNITS Prov:HUA GOLDEN MD 01/10/24 Adhesive Tape (EQL ADHESIVE TAPE 1/2"X10) 1 Mg/2 X10yd Tap, MG XX, #1 Prov:MELISSA AIKEN ACETYLENE BURNER 11/19/23 Gauze Pads & Dressings (Curity Iodoform Packing S) Strip Mis, BOT XX EOD, #1 Prov:MELISSA AIKEN ACETYLENE BURNER 11/19/23 Gauze Pads & Dressings (Curity Gauze Sponge 4"X4") 4 " Pad, " XX DAILY, #14 Prov:MELISSA AIKEN ACETYLENE BURNER 11/19/23 Sulfamethoxazole W/Trimethopri (Bactrim Ds Tablet) 1 Tab Tb, 1 TAB PO BID for 7 Days, #14 TAB Prov:MELISSA AIKEN ACETYLENE BURNER 24 Oxycodone W/ Acetaminophen (Percocet 5/325MG) 1 Tab Tb, 1 TAB PO QID for 7 Days, #28 TAB Prov:MELISSA AIKEN ACETYLENE BURNER 11/19/23 Metformin Hydrochloride (Metformin Hcl) 1,000 Mg Tab, 1 TAB PO BID, #60 TAB Prov:THERON STARR MD 01/26/21 Insulin Glargine (Lantus) 100 Unit/Ml Inj, 20 UNIT SC HS for 30 Days, #30 INJ Prov:THERON STARR MD 01/26/21 Reported Medications Atorvastatin Calcium (ATORVASTATIN CALCIUM) 40 Mg Tab, 40 MG PO DAILY, TAB 11/14/23 Albuterol Sulfate (VENTOLIN MDI) 90 Mcg Ih, 90 MCG IN Q4HPRN PRN for SHORTNESS OF BREATH 11/18/15 Vital Signs Vital Signs Date Time Temp Pulse Resp B/P (MAP) Pulse Ox O2 Delivery O2 Flow Rate FiO2 09/18/24 13:00 97.7 70 16 128/78 (95) 98 97.7 09/18/24 08:27 Room Air* 0 21 Physical Exam GEN: Age-appropriate male in no acute distress. Alert. HEENT: Normocephalic atraumatic. Moist mucous membranes. Anicteric sclerae. CV: RRR Respiratory: CTAB ABD: Soft. Nontender nondistended Back. There is a large at least a 20 x 15 cm indurated area in the middle of his thoracic back with tenderness to palpation. No obvious purulent drainage. Back ultrasound: 1.5 x 1.4 x 10.7 cm hyperechoic area in the back mood which may represent abscess or edema. Labs/Diagnostic Data Labs Test 09/18/24 06:49 09/16/24 06:40 09/15/24 13:42 09/14/24 23:46 Range/Units POC Glucose 266 H 70-106 mg/dl White Blood Count 16.0 H 4.4-10.8 10^3/uL Red Blood Count 4.46 L 4.5-5.90 10^6/uL Hemoglobin 13.1 L 13.5-17.5 g/dL Hematocrit 38.3 L 41.0-53.0 % Mean Corpuscular Volume 85.9 80.0-100.0 fL Mean Corpuscular Hemoglobin 29.4 28.0-32.0 pg Mean Corpuscular Hemoglobin Concent 34.3 32.0-36.0 g/dL Red Cell Distribution Width 13.7 11.8-14.3 % Platelet Count 239 140-450 10^3/uL Mean Platelet Volume 10.7 6.9-10.8 fL Neutrophils (%) (Auto) 79.6 37.0-80.0 % Lymphocytes (%) (Auto) 8.9 L 10.0-50.0 % Monocytes (%) (Auto) 9.2 0.0-12.0 % Eosinophils (%) (Auto) 1.7 0.0-7.0 % Basophils (%) (Auto) 0.6 0.0-2.0 % Neutrophils # (Auto) 12.7 H 1.6-8.6 10 ^3/uL Lymphocytes # (Auto) 1.4 0.4-5.4 10 ^3/uL Monocytes # (Auto) 1.5 H 0-1.3 10 ^3/uL Eosinophils # (Auto) 0.3 0-0.8 10 ^3/uL Basophils # (Auto) 0.1 0-0.2 10 ^3/uL Nucleated Red Blood Cells 0.0 % Sodium Level 133 L 136-145 mmol/L Potassium Level 3.6 3.5-5.1 mmol/L Chloride Level 100 98-107 mmol/L Carbon Dioxide Level 22 20-31 mmol/L Anion Gap 11 5-15 Blood Urea Nitrogen 17 9-23 mg/dL Creatinine 1.15 0.700-1.30 mg/dL Glomerular Filtration Rate Calc 82 >90 mL/min BUN/Creatinine Ratio 14.8 10.0-20.0 Serum Glucose 202 #H 74-106 mg/dL Calcium Level 9.9 8.7-10.4 mg/dL Hemoglobin A1c 13.3 H <5.7 % A1C Lactic Acid Level 1.3 0.4-2.0 mmol/L Microbiology Date/Time Source Procedure Growth Status 09/14/24 23:53 Blood Blood Culture - Final Staphylococcus aureus Complete Assessment 1. Large back abscess Plan/Recommendation 1. Incision and drainage of large back abscess Informed consent: The surgery and its risks including but not limited to infection, bleeding, open surgical site requiring local wound care after surgery, possible abscess recurrence, possible perioperative AR or stroke were explained to the patient. All questions were answered to her satisfaction. He expressed verbal understanding and wished to proceed with the surgery. Plan discussed with: Patient DEVONTE RICHARDSON MD Sep 18, 2024 14:10
[2024-09-18 17:00] VITALS: BP 144/73; PULSE 73; RESP 18; TEMP 98.2; O2SAT 98
[2024-09-18 20:37] LABS: INR 1.02 (0.9-1.15); Partial Thromboplastin Time 27.1 SEC (24.5-34.5); Prothrombin Time 10.8 sec (9.3-11.8)
[2024-09-18 21:05] VITALS: BP 127/67; PULSE 87; RESP 18; TEMP 98.3; O2SAT 100
[2024-09-19] VITALS (7 sets, daily range): BP systolic 113–150; BP diastolic 68–98; PULSE 66–82; RESP 14–19; TEMP 97.5–98.4; O2SAT 95–100
[2024-09-19] MEDS ORDERED: MEPERIDINE HCL (25 MG/ML) 1ML VIAL ONE (08:53)
[2024-09-19] MEDS ORDERED: fentaNYL CITRATE 100 MCG/2 ML VL ONE (08:53)
[2024-09-19] MEDS: LIDOCAINE W/ EPINEPHRINE 1% 20ML VIAL ONE (09:06)
[2024-09-19] MEDS ORDERED: MIDAZOLAM HCL 2MG/2ML 2ml VIAL (1mg/ml) ONE (09:16)
--- NOTE | 2024-09-19 09:56 | DVHOP2 ---
Operative Report - 2 Report Details Date: 09/19/24 Preop Diagnosis: Back abscess Postop Diagnosis: Same Surgeon: Devonte Sadler MD Photographic Enlarger Operator: None Anesthesiologist: Dr. Sena Anesthesia: Mac, Local Drains: None Consent: The surgery and its risks including but not limited to infection, bleeding requiring possible blood transfusion, open wound requiring local wound care, possible recurrent abscess, possible perioperative [place] or stroke were explained to the patient. All questions were answered to his satisfaction. He expressed verbal understanding and wished to proceed with the surgery. Complications: None Estimated Blood Loss: 20 mL Fluids: 500 mL Name of Procedure Performed Incision and drainage of back abscess Procedure Details Procedure Details: After induction of monitored anesthesia, patient was placed in a left lateral decubitus position and his back was prepped and draped in standard surgical fashion. Approximately 20 mL of 1% lidocaine was used as a local anesthesia. An 18 gauge needle was used to locate the abscess cavity and approximately 3 mL of purulent fluid was aspirated and sent for Gram stain and culture. Once the abscess was located a vertical incision was made through the soft tissue which was quite thick and inflamed. Eventually incision extending into the abscess cavity with more pus draining from the abscess cavity. Abscess cavity was then fully opened resulting in a vertical incision measuring 10 cm in length. The abscess cavity was then well irrigated with diluted Betadine irrigation and packed with Kerlix roll soaked in Betadine. Surgical site was cleaned and dried and dressings were applied. Sponge, needle, instrument count at the end of the case were reported to be correct by the nursing staff. The patient tolerated procedure well and at the time of dictation, he is being transferred back to recovery in stable condition. Specimen: Gram stain and culture Condition Stable Disposition Still a Patient DEVONTE SADLER MD Sep 19, 2024 09:56
[2024-09-19] MEDS ORDERED: ePHEDrine SULFATE 50 MG/ML AMP IV PRN (10:30)
[2024-09-19] MEDS ORDERED: HYDROmorphone HCL 2 MG/ML VL/or syr IV PRN (10:30)
[2024-09-19] MEDS ORDERED: MIDAZOLAM HCL 2MG/2ML 2ml VIAL (1mg/ml) IV PRN (10:30)
[2024-09-19] MEDS ORDERED: hydrALAZINE HCL 20 MG/ML VL IV PRN (10:30)
[2024-09-19] MEDS ORDERED: MORPHINE SULFATE 4 MG/ML SYR/VIAL IV PRN (10:30)
[2024-09-19] MEDS: ONDANSETRON HCL 4 MG/2 ML VIAL IV ONE (10:58)
[2024-09-19] MEDS: KETOROLAC TROMETH 30 MG/ML 1ML VIAL IV ONE (10:58)
--- NOTE | 2024-09-19 11:28 | DVHPN2 ---
Reviewed: Care Plan, H&P, Labs, Medications, Previous Orders, Radiology Changes from previous H/P or p: No Changes Objective Vitals Vital Signs Date Time Temp Pulse Resp B/P (MAP) Pulse Ox O2 Delivery O2 Flow Rate FiO2 09/19/24 09:00 97.5 79 16 150/89 (109) 99 97.5 09/19/24 08:00 Room Air* 0 21 Intake/Output Intake and Output 09/19/24 07:00 Intake Total 1850 ml Balance 1850 ml Intake Oral 1800 ml IV Total 50 ml # Voids 4 # Bowel Movements 1 Medications Current Medications Medications Dose Ordered Sig/Helen Route Start Time Stop Time Status Last Admin Dose Admin Ceftriaxone Sodium 50 ml @ 100 mls/hr DAILY@09 IV 09/15/24 09:00 09/18/24 08:58 100 MLS/HR Atorvastatin Calcium 40 mg HS PO 09/15/24 22:00 09/18/24 21:19 40 MG Diagnostic Test (Pha) 1 strip Q6HR 09/15/24 06:00 09/19/24 06:27 1 STRIP Insulin Human Regular Q6HR SC 09/15/24 06:00 09/19/24 05:35 3 UNITS Dextrose 50 ml UD PRN IV 09/15/24 05:00 Acetaminophen/ Hydrocodone Bitart 1 tab Q4HP PRN PO 09/15/24 05:00 Hold 09/16/24 09:19 1 TAB Temazepam 15 mg QHSP PRN PO 09/15/24 05:00 09/17/24 01:29 15 MG Ondansetron HCl 4 mg Q4HP PRN IV 09/15/24 05:00 09/15/24 08:42 4 MG Acetaminophen 650 mg Q6HP PRN PO 09/15/24 05:00 09/15/24 20:03 650 MG Morphine Sulfate 2 mg Q8HPRN PRN IV 09/15/24 05:00 09/18/24 23:33 2 MG Clindamycin Phosphate 50 ml @ 50 mls/hr Q8H IV 09/15/24 10:00 09/19/24 01:47 50 MLS/HR Ketorolac Tromethamine 30 mg Q6HPRN PRN IV 09/16/24 14:00 09/21/24 13:59 09/19/24 04:40 30 MG Hydralazine HCl 5 mg Q10M PRN IV 09/19/24 10:30 09/19/24 11:21 Laboratory Results Laboratory Tests 09/16/24 06:40 Coagulation Test 09/18/24 20:05 Prothrombin Time 10.8 sec (9.3-11.8) Prothrombin Time INR 1.02 (0.9-1.15) Activated Partial Thromboplast Time 27.1 SEC (24.5-34.5) Microbiology Microbiology Date/Time Source Procedure Growth Status 09/14/24 23:53 Blood Blood Culture - Final Staphylococcus aureus Complete Labs and/or images reviewed: Labs reviewed by me, Image(s) reviewed by me Assessment/Plan Assessment/Plan Cellulitis with possible abscess right interscapular area : Status post incision and drainage of the abscess by surgeon Dr. Sadler on 09/19/2024 Rocephin clindamycin Bacteremia with possible MSSA, continue: Clindamycin History of recurrent cellulitis Uncontrolled diabetes A1c 13.5: Insulin sliding scale , diabetic education Hypercholesterolemia History of asthma Time spent 55 minutes Plan discussed with: Patient My Orders Orders - VALENTINO BORGES MD Procedure Category Date Status Time * Surgical Consult CONS 09/18/24 Transmitted 13:02 Date of Service: Sep 19, 2024 Billing Provider: VALENTINO BORGES MD Common Visit Codes: [id number] INP/OBS CARE(HIGH) VALENTINO BORGES MD Sep 19, 2024 11:28
[2024-09-20 05:00] VITALS: BP 136/93; PULSE 72; RESP 19; TEMP 97.6; O2SAT 99
[2024-09-20 09:00] VITALS: BP 135/80; PULSE 68; RESP 18; TEMP 98.1; O2SAT 99
--- NOTE | 2024-09-20 11:10 | DVHPN2 ---
Progress Note - Dictate Date Seen: Sep 20, 2024 Medical Necessity Reason Pt with a Central, PICC or Fol: No Subjective E: no major events o/n. doing better. vital signs Vital Sign Date Time Temp Pulse Resp B/P (MAP) Pulse Ox O2 Delivery O2 Flow Rate FiO2 09/20/24 09:00 98.1 68 18 135/80 (98) 99 98.1 09/20/24 07:40 Room Air* 0 21 Total Intake and Output 09/19/24 09/19/24 09/20/24 15:00 23:00 07:00 Intake Total 0 ml 1101 ml 850 ml Balance 0 ml 1101 ml 850 ml medications Current Medications Medications Dose Ordered Sig/Helen Route Start Time Stop Time Status Last Admin Dose Admin Ceftriaxone Sodium 50 ml @ 100 mls/hr DAILY@09 IV 09/15/24 09:00 09/20/24 09:54 100 MLS/HR Atorvastatin Calcium 40 mg HS PO 09/15/24 22:00 09/19/24 21:31 40 MG Diagnostic Test (Pha) 1 strip Q6HR 09/15/24 06:00 09/20/24 05:28 1 STRIP Insulin Human Regular Q6HR SC 09/15/24 06:00 09/20/24 05:28 3 UNITS Dextrose 50 ml UD PRN IV 09/15/24 05:00 Acetaminophen/ Hydrocodone Bitart 1 tab Q4HP PRN PO 09/15/24 05:00 Hold 09/16/24 09:19 1 TAB Temazepam 15 mg QHSP PRN PO 09/15/24 05:00 09/17/24 01:29 15 MG Ondansetron HCl 4 mg Q4HP PRN IV 09/15/24 05:00 09/15/24 08:42 4 MG Acetaminophen 650 mg Q6HP PRN PO 09/15/24 05:00 09/15/24 20:03 650 MG Morphine Sulfate 2 mg Q8HPRN PRN IV 09/15/24 05:00 09/20/24 06:00 2 MG Clindamycin Phosphate 50 ml @ 50 mls/hr Q8H IV 09/15/24 10:00 09/20/24 10:16 50 MLS/HR Ketorolac Tromethamine 30 mg Q6HPRN PRN IV 09/16/24 14:00 09/21/24 13:59 09/20/24 06:03 30 MG objective GEN: NAD BACK: open surgical site clean. laboratory and microbiology Laboratory Tests 09/16/24 06:40 Test 09/16/24 06:40 Range/Units Serum Glucose 202 #H 74-106 mg/dL Assessment/Plan A: 1. s/p I+D back abscess POD #1 doing well. P: 1. check WBC. if trending down, ok for DC home with wound care from surgery POV. 2. moist to dry BID packing 3. f/u in clinic next week. call [phone] for f/u appt. Dietary Evaluation Review Comments: Refer patient to outpatient RD/CDCES upon discharge Expected Outcomes/Goals: Patient labs or appetite to improve Plan discussed with: Patient DEVONTE RICHARDSON MD Sep 20, 2024 11:10
--- NOTE | 2024-09-20 11:30 | DVHPN2 ---
Reviewed: Care Plan, H&P, Labs, Medications, Previous Orders, Radiology Changes from previous H/P or p: No Changes Objective Vitals Vital Signs Date Time Temp Pulse Resp B/P (MAP) Pulse Ox O2 Delivery O2 Flow Rate FiO2 09/20/24 09:00 98.1 68 18 135/80 (98) 99 98.1 09/20/24 07:40 Room Air* 0 21 Intake/Output Intake and Output 09/20/24 07:00 Intake Total 1951 ml Balance 1951 ml Intake Oral 1901 ml IV Total 50 ml # Voids 5 # Bowel Movements 2 Medications Current Medications Medications Dose Ordered Sig/Helen Route Start Time Stop Time Status Last Admin Dose Admin Ceftriaxone Sodium 50 ml @ 100 mls/hr DAILY@09 IV 09/15/24 09:00 09/20/24 09:54 100 MLS/HR Atorvastatin Calcium 40 mg HS PO 09/15/24 22:00 09/19/24 21:31 40 MG Diagnostic Test (Pha) 1 strip Q6HR 09/15/24 06:00 09/20/24 05:28 1 STRIP Insulin Human Regular Q6HR SC 09/15/24 06:00 09/20/24 05:28 3 UNITS Dextrose 50 ml UD PRN IV 09/15/24 05:00 Acetaminophen/ Hydrocodone Bitart 1 tab Q4HP PRN PO 09/15/24 05:00 Hold 09/16/24 09:19 1 TAB Temazepam 15 mg QHSP PRN PO 09/15/24 05:00 09/17/24 01:29 15 MG Ondansetron HCl 4 mg Q4HP PRN IV 09/15/24 05:00 09/15/24 08:42 4 MG Acetaminophen 650 mg Q6HP PRN PO 09/15/24 05:00 09/15/24 20:03 650 MG Morphine Sulfate 2 mg Q8HPRN PRN IV 09/15/24 05:00 09/20/24 06:00 2 MG Clindamycin Phosphate 50 ml @ 50 mls/hr Q8H IV 09/15/24 10:00 09/20/24 10:16 50 MLS/HR Ketorolac Tromethamine 30 mg Q6HPRN PRN IV 09/16/24 14:00 09/21/24 13:59 09/20/24 06:03 30 MG Laboratory Results Laboratory Tests 09/16/24 06:40 Microbiology Microbiology Date/Time Source Procedure Growth Status 09/19/24 09:44 Other Abscess Gram Stain Pending Resulted 09/19/24 09:44 Other Abscess Anaerobic Culture Pending Resulted 09/19/24 09:44 Other Abscess Aerobic Culture - Preliminary Resulted 09/14/24 23:53 Blood Blood Culture - Final Staphylococcus aureus Complete Labs and/or images reviewed: Labs reviewed by me, Image(s) reviewed by me Assessment/Plan Assessment/Plan Cellulitis with possible abscess right interscapular area : Status post incision and drainage of the abscess by surgeon Dr. Sadler on 09/19/2024 Rocephin clindamycin Bacteremia with possible MSSA, continue: Clindamycin History of recurrent cellulitis Uncontrolled diabetes A1c 13.5: Insulin sliding scale , diabetic education Hypercholesterolemia History of asthma Surgery cleared for discharge if WBCs coming down we will check WBC Time spent 55 minutes Plan discussed with: Patient My Orders Orders - VALENTINO BORGES MD Procedure Category Date Status Time Complete Blood Count LAB 09/21/24 Verified 04:00 Date of Service: Sep 20, 2024 Billing Provider: VALENTINO BORGES MD Common Visit Codes: [id number] INP/OBS CARE(HIGH) VALENTINO BORGES MD Sep 20, 2024 11:30
[2024-09-20 12:00] LABS: Basophils # (auto) 0.1 10 ^3/uL (0-0.2); Basophils % (auto) 0.7 % (0.0-2.0); Eosinophils # (auto) 0.8 10 ^3/uL (0-0.8); Eosinophils % (auto) 7.5 % (0.0-7.0); Hematocrit 35.7 % (41.0-53.0); Hemoglobin 11.7 g/dL (13.5-17.5); Lymphocytes # (auto) 1.9 10 ^3/uL (0.4-5.4); Lymphocytes % (auto) 17.3 % (10.0-50.0); Mean Corpuscular Hemoglobin 28.4 pg (28.0-32.0); Mean Corpuscular Hgb Conc. 32.9 g/dL (32.0-36.0); Mean Corpuscular Volume 86.2 fL (80.0-100.0); Monocytes # (auto) 0.8 10 ^3/uL (0-1.3); Monocytes % (auto) 7.1 % (0.0-12.0); Neutrophils # (auto) 7.5 10 ^3/uL (1.6-8.6); Neutrophils % (auto) 67.4 % (37.0-80.0); Nucleated Red Blood Cells % 0.1 %; Platelet Count (auto) 333 10^3/uL (140-450); Red Blood Cells 4.14 10^6/uL (4.5-5.90); White Blood Cell 11.1 10^3/uL (4.4-10.8)
[2024-09-20 13:00] VITALS: BP 137/74; PULSE 64; RESP 18; TEMP 98.1; O2SAT 100
[2024-09-20 17:00] VITALS: BP 145/77; PULSE 67; RESP 16; TEMP 97.7; O2SAT 95
[2024-09-20 20:00] VITALS: PULSE 73; RESP 16; O2SAT 100
[2024-09-20 21:00] VITALS: BP 127/70; PULSE 73; RESP 16; TEMP 98; O2SAT 100
[2024-09-21 09:00] VITALS: BP 135/77; PULSE 57; RESP 17; TEMP 97.5; O2SAT 100
[2024-09-21] MEDS ORDERED: HYDR-4902 PO (11:22)
[2024-09-21] MEDS ORDERED: CLIN1CAP70 PO (11:22)
--- NOTE | 2024-09-21 11:25 | DVHPN2 ---
Reviewed: Care Plan, H&P, Labs, Medications, Previous Orders, Radiology Changes from previous H/P or p: No Changes Objective Vitals Vital Signs Date Time Temp Pulse Resp B/P (MAP) Pulse Ox O2 Delivery O2 Flow Rate FiO2 09/21/24 09:00 97.5 57 17 135/77 (96) 100 97.5 09/20/24 20:00 Room Air* 0 21 Intake/Output Intake and Output 09/21/24 07:00 Intake Total 2900 ml Balance 2900 ml Intake Oral 2800 ml IV Total 100 ml # Voids 3 Medications Current Medications Medications Dose Ordered Sig/Helen Route Start Time Stop Time Status Last Admin Dose Admin Ceftriaxone Sodium 50 ml @ 100 mls/hr DAILY@09 IV 09/15/24 09:00 09/21/24 10:39 100 MLS/HR Atorvastatin Calcium 40 mg HS PO 09/15/24 22:00 09/20/24 21:55 40 MG Diagnostic Test (Pha) 1 strip Q6HR 09/15/24 06:00 09/21/24 05:40 1 STRIP Insulin Human Regular Q6HR SC 09/15/24 06:00 09/21/24 05:41 4 UNITS Dextrose 50 ml UD PRN IV 09/15/24 05:00 Acetaminophen/ Hydrocodone Bitart 1 tab Q4HP PRN PO 09/15/24 05:00 Hold 09/16/24 09:19 1 TAB Temazepam 15 mg QHSP PRN PO 09/15/24 05:00 09/17/24 01:29 15 MG Ondansetron HCl 4 mg Q4HP PRN IV 09/15/24 05:00 09/15/24 08:42 4 MG Acetaminophen 650 mg Q6HP PRN PO 09/15/24 05:00 09/15/24 20:03 650 MG Morphine Sulfate 2 mg Q8HPRN PRN IV 09/15/24 05:00 09/21/24 08:34 2 MG Clindamycin Phosphate 50 ml @ 50 mls/hr Q8H IV 09/15/24 10:00 09/21/24 01:11 50 MLS/HR Ketorolac Tromethamine 30 mg Q6HPRN PRN IV 09/16/24 14:00 09/21/24 13:59 09/21/24 08:34 30 MG Laboratory Results Laboratory Tests 09/16/24 06:40 Microbiology Microbiology Date/Time Source Procedure Growth Status 09/19/24 09:44 Other Abscess Gram Stain Pending Resulted 09/19/24 09:44 Other Abscess Anaerobic Culture Pending Resulted 09/19/24 09:44 Other Abscess Aerobic Culture - Preliminary Resulted 09/14/24 23:53 Blood Blood Culture - Final Staphylococcus aureus Complete Labs and/or images reviewed: Labs reviewed by me, Image(s) reviewed by me Assessment/Plan Assessment/Plan Cellulitis with possible abscess right interscapular area : Status post incision and drainage of the abscess by surgeon Dr. Sadler on 09/19/2024 Rocephin clindamycin Bacteremia with possible MSSA, continue: Clindamycin History of recurrent cellulitis Uncontrolled diabetes A1c 13.5: Insulin sliding scale , diabetic education Hypercholesterolemia History of asthma WBC came down and patient feels better being discharged home. Plan discussed with: Patient My Orders Orders - VALENTINO BORGES MD Procedure Category Date Status Time Complete Blood Count LAB 09/21/24 In Process 04:00 Date of Service: Sep 21, 2024 Billing Provider: VALENTINO BORGES MD Common Visit Codes: [id number] INP/OBS CARE(HIGH) VALENTINO BORGES MD Sep 21, 2024 11:25
[2024-09-21 11:28] LABS: Basophils # (auto) 0.1 10 ^3/uL (0-0.2); Basophils % (auto) 0.8 % (0.0-2.0); Eosinophils # (auto) 0.7 10 ^3/uL (0-0.8); Eosinophils % (auto) 6.7 % (0.0-7.0); Hematocrit 37.1 % (41.0-53.0); Hemoglobin 11.8 g/dL (13.5-17.5); Lymphocytes % (auto) 20.1 % (10.0-50.0); Mean Corpuscular Hgb Conc. 31.8 g/dL (32.0-36.0); Mean Corpuscular Volume 88.1 fL (80.0-100.0); Monocytes # (auto) 0.7 10 ^3/uL (0-1.3); Monocytes % (auto) 6.7 % (0.0-12.0); Neutrophils # (auto) 6.6 10 ^3/uL (1.6-8.6); Neutrophils % (auto) 65.7 % (37.0-80.0); Nucleated Red Blood Cells % 0.2 %; Platelet Count (auto) 350 10^3/uL (140-450); Red Blood Cells 4.21 10^6/uL (4.5-5.90); Red Cell Distribution Width 14.2 % (11.8-14.3)
--- NOTE | 2024-09-21 11:30 | DVHDS2 ---
Discharge Summary Date of Admission Sep 15, 2024 at 04:57 Date of Discharge: Sep 21, 2024 Admitting Diagnosis Abscess right upper back Wounds: Incision drainage of the abscess right upper back Labs/Diagnostic Data: Laboratory Results Test 09/21/24 10:15 09/21/24 05:34 09/20/24 11:49 09/18/24 20:05 POC Glucose 214 mg/dl (70-106) Eosinophils (%) (Auto) 7.5 % (0.0-7.0) Eosinophils # (Auto) 0.8 10 ^3/uL (0-0.8) Basophils # (Auto) 0.1 10 ^3/uL (0-0.2) Nucleated Red Blood Cells 0.1 % Prothrombin Time 10.8 sec (9.3-11.8) Prothrombin Time INR 1.02 (0.9-1.15) Activated Partial Thromboplast Time 27.1 SEC (24.5-34.5) Test 09/16/24 06:40 09/15/24 13:42 09/14/24 23:46 Sodium Level 133 mmol/L (136-145) Potassium Level 3.6 mmol/L (3.5-5.1) Chloride Level 100 mmol/L (98-107) Carbon Dioxide Level 22 mmol/L (20-31) Anion Gap 11 (5-15) Blood Urea Nitrogen 17 mg/dL (9-23) Creatinine 1.15 mg/dL (0.700-1.30) Glomerular Filtration Rate Calc 82 mL/min (>90) BUN/Creatinine Ratio 14.8 (10.0-20.0) Serum Glucose 202 mg/dL (74-106) Calcium Level 9.9 mg/dL (8.7-10.4) Hemoglobin A1c 13.3 % A1C (<5.7) Lactic Acid Level 1.3 mmol/L (0.4-2.0) Other Laboratory Tests 09/16/24 06:40 Brief Hx & Hospital Course: 49-year-old male insulin-dependent diabetes noncompliant recurrent cellulitis of the back came in complaining of infection in the back. Had an abscess in the right upper back and underwent incision and drainage by the surgeon Dr. Sadler. A1c 13.5 patient is noncompliant and does not take his insulin regularly and he says he ran out of the medication and did not have time to fill the prescription. Diabetes controlled with insulin sliding scale blood cultures grew MSSA sensitive to clindamycin patient was treated with a clindamycin and Rocephin at the time of discharge patient is afebrile stable vital signs. Being discharged home on clindamycin and Jansen. Handwritten prescription given for Lantus he was strongly advised to control his diabetes by checking his blood sugar 3 times a day and regularly taking insulin he will follow up with his primary Dr and with Dr. Sadler in 3-4 days Consults/Reason for consult Surgeon Dr. Sadler Operations or Procedures Incision and drainage of the abscess right upper back Condition at Discharge: Fair Final Diagnosis/Problems List Cellulitis with possible abscess right interscapular area : Status post incision and drainage of the abscess by surgeon Dr. Sadler on 09/19/2024 Rocephin clindamycin Bacteremia with possible MSSA, continue: Clindamycin History of recurrent cellulitis Uncontrolled diabetes A1c 13.5: Insulin sliding scale , diabetic education Hypercholesterolemia History of asthma Discharge Disposition: Home Discharge Instruct/Medications Diet: Consistent carbohydrate Activity: Light activity Follow Up/Referral: Follow up with your primary Dr 3-4 days Follow up with surgeon Dr. Sadler in 3-4 days Check blood sugar 3 times a day and take insulin regularly Medications: Clindamycin Jansen Transmitted to the pharmacy Handwritten prescription given for Lantus 35 (Time Taken for discharge summary 35 minutes) Discharge Statement: "Patient was advised to return to the ER or call 911 if any headaches, dizziness, shortness of breath, chest pain, abdominal pain, bleeding, fevers, or worsening of medical condition. Patient was counseled about treatment plan, medications, possible side effects, patientverbalized understanding. All questions were answered to the best of my ability. This discharge took greater then 30 minutes in planning, reviewing documentation, counseling the patient, and discussing with other team members." ASSESSMENT ASSESSMENT Hospital Course Improved Assessment Cellulitis with possible abscess right interscapular area : Status post incision and drainage of the abscess by surgeon Dr. Sadler on 09/19/2024 Rocephin clindamycin Bacteremia with possible MSSA, continue: Clindamycin History of recurrent cellulitis Uncontrolled diabetes A1c 13.5: Insulin sliding scale , diabetic education Hypercholesterolemia History of asthma Date of Service: Sep 21, 2024 Billing Provider: VALENTINO BORGES MD Common Visit Codes: [id number]/[id number] DISCH DAY >30min VALENTINO BORGES MD Sep 21, 2024 11:30
[2024-09-21 12:54] VITALS: BP 141/86; PULSE 65; RESP 17; TEMP 97.9; O2SAT 100
[2024-09-21 17:00] VITALS: BP 119/79; PULSE 83; RESP 17; TEMP 97.5; O2SAT 100
[2024-09-21 20:00] VITALS: RESP 18; O2SAT 98
[2024-09-21 21:00] VITALS: BP 134/76; PULSE 84; RESP 20; TEMP 98.1; O2SAT 99
[2024-09-22 05:00] VITALS: BP 157/79; PULSE 74; RESP 20; TEMP 98.4; O2SAT 98
[2024-09-22 09:00] VITALS: BP 128/72; PULSE 63; RESP 18; TEMP 98; O2SAT 98
--- NOTE | 2024-09-22 12:11 | DVHPN2 ---
Reviewed: Care Plan, H&P, Labs, Medications, Previous Orders, Radiology Changes from previous H/P or p: No Changes Objective Vitals Vital Signs Date Time Temp Pulse Resp B/P (MAP) Pulse Ox O2 Delivery O2 Flow Rate FiO2 09/22/24 09:11 70 16 126/71 09/22/24 09:00 98.0 98 98.0 09/22/24 08:00 Room Air* 0 21 Intake/Output Intake and Output 09/22/24 07:00 Intake Total 1550 ml Balance 1550 ml Intake Oral 1400 ml IV Total 150 ml # Voids 5 Medications Current Medications Medications Dose Ordered Sig/Helen Route Start Time Stop Time Status Last Admin Dose Admin Ceftriaxone Sodium 50 ml @ 100 mls/hr DAILY@09 IV 09/15/24 09:00 09/22/24 08:41 100 MLS/HR Atorvastatin Calcium 40 mg HS PO 09/15/24 22:00 09/21/24 21:31 40 MG Diagnostic Test (Pha) 1 strip Q6HR 09/15/24 06:00 09/22/24 11:37 1 STRIP Insulin Human Regular Q6HR SC 09/15/24 06:00 09/22/24 11:37 3 UNITS Dextrose 50 ml UD PRN IV 09/15/24 05:00 Acetaminophen/ Hydrocodone Bitart 1 tab Q4HP PRN PO 09/15/24 05:00 Hold 09/16/24 09:19 1 TAB Ondansetron HCl 4 mg Q4HP PRN IV 09/15/24 05:00 09/15/24 08:42 4 MG Acetaminophen 650 mg Q6HP PRN PO 09/15/24 05:00 09/15/24 20:03 650 MG Morphine Sulfate 2 mg Q8HPRN PRN IV 09/15/24 05:00 09/22/24 08:41 2 MG Clindamycin Phosphate 50 ml @ 50 mls/hr Q8H IV 09/15/24 10:00 09/22/24 10:58 50 MLS/HR Laboratory Results Laboratory Tests 09/16/24 06:40 09/21/24 10:15 Microbiology Microbiology Date/Time Source Procedure Growth Status 09/19/24 09:44 Other Abscess Gram Stain - Final Resulted 09/19/24 09:44 Other Abscess Anaerobic Culture - Preliminary Resulted 09/19/24 09:44 Other Abscess Aerobic Culture - Preliminary Resulted 09/14/24 23:53 Blood Blood Culture - Final Staphylococcus aureus Complete Labs and/or images reviewed: Labs reviewed by me, Image(s) reviewed by me Assessment/Plan Assessment/Plan Cellulitis with possible abscess right interscapular area : Status post incision and drainage of the abscess by surgeon Dr. Sadler on 09/19/2024 Rocephin clindamycin Bacteremia with possible MSSA, continue: Clindamycin History of recurrent cellulitis Uncontrolled diabetes A1c 13.5: Insulin sliding scale , diabetic education Hypercholesterolemia History of asthma Patient was discharged home on 09/21/2024 Awaiting arrangement of home health Plan discussed with: Patient Date of Service: Sep 22, 2024 Billing Provider: VALENTINO BORGES MD Common Visit Codes: [id number] INP/OBS CARE(HIGH) VALENTINO BORGES MD Sep 22, 2024 12:11
[2024-09-22 12:19] VITALS: BP 128/72; PULSE 79; RESP 18; TEMP 98; O2SAT 98
[2024-09-22 13:00] VITALS: BP 144/81; PULSE 60; RESP 18; TEMP 98; O2SAT 99
[2024-09-22] MEDS ORDERED: PROPOFOL 10 MG/ML 20 ML IV ONE (13:09)
== END 2024-09-22 13:10 | disposition home health service (06) | DRG 872 ==
LOC: ER 23:05 → OVERFLOW 09-15 04:57 → WEST WING 09-16 15:34
PROVIDERS: ADMIT Nurse Practitioner; ATTEND Family Medicine
PROC: 0J970ZZ Drainage of Back Subcutaneous Tissue and Fascia, Open Approach (ICD-10-PCS; principal; 2024-09-19 09:16)
DX: A41.9 Sepsis, unspecified organism (principal); L02.212 Cutaneous abscess of back [any part, except buttock and flank]; R78.81 Bacteremia; L03.312 Cellulitis of back [any part except buttock and flank]; E78.00 Pure hypercholesterolemia, unspecified; J45.909 Unspecified asthma, uncomplicated; I10 Essential (primary) hypertension; B95.61 Methicillin susceptible Staphylococcus aureus infection as the cause of diseases classified elsewhere; Z91.010 Allergy to peanuts; Z91.013 Allergy to seafood; Z83.3 Family history of diabetes mellitus; Z82.49 Family history of ischemic heart disease and other diseases of the circulatory system; Z82.5 Family history of asthma and other chronic lower respiratory diseases; Z91.199 Patient's noncompliance with other medical treatment and regimen due to unspecified reason; Z79.4 Long term (current) use of insulin; E11.65 Type 2 diabetes mellitus with hyperglycemia
CPT/HCPCS: 36415; 76604; 80048; 82962; 83036; 83605; 85025; 85610; 85730; 87040; 87070; 87075; 87077; 87186; 87205; A4565; G0378; J1815; J1885; J2250; J2405; J2704; J3490

== ENCOUNTER 2025-01-13 00:07 | Inpatient (IN) | payer OTHER, MEDICAID ==
[~2025-01-13] VITALS: Ht 175.3 cm; Wt 99.0 kg
[~2025-01-13 00:07] MED LIST changes: +CLIN1CAP70 PO; +HYDR-4902 PO
[2025-01-13 02:37] LABS: Basophils # (auto) 0.1 10 ^3/uL (0-0.2); Basophils % (auto) 0.7 % (0.0-2.0); Eosinophils # (auto) 0.5 10 ^3/uL (0-0.8); Eosinophils % (auto) 7.4 % (0.0-7.0); Hematocrit 45.9 % (41.0-53.0); Hemoglobin 15.2 g/dL (13.5-17.5); Lymphocytes % (auto) 27.7 % (10.0-50.0); Mean Corpuscular Hemoglobin 28.8 pg (28.0-32.0); Mean Corpuscular Hgb Conc. 33.2 g/dL (32.0-36.0); Mean Corpuscular Volume 86.8 fL (80.0-100.0); Monocytes # (auto) 0.6 10 ^3/uL (0-1.3); Monocytes % (auto) 8.1 % (0.0-12.0); Neutrophils # (auto) 4.1 10 ^3/uL (1.6-8.6); Neutrophils % (auto) 56.1 % (37.0-80.0); Platelet Count (auto) 204 10^3/uL (140-450); Red Blood Cells 5.29 10^6/uL (4.5-5.90); Red Cell Distribution Width 14.7 % (11.8-14.3); White Blood Cell 7.2 10^3/uL (4.4-10.8)
[2025-01-13 02:51] LABS: Alanine Aminotransferase 21 U/L (7-40); Albumin 4.5 g/dL (3.2-4.8); Alkaline Phosphatase 83 U/L (46-116); Anion Gap 9 (5-15); Bilirubin, Total 0.5 mg/dL (0.2-1.0); Blood Urea Nitrogen 16 mg/dL (9-23); Carbon Dioxide 25 mmol/L (20-31); Chloride 102 mmol/L (98-107); Potassium 4.2 mmol/L (3.5-5.1)
--- NOTE | 2025-01-13 02:52 | ED.PDOC ---
History of Present Illness HPI Comments 39 y/o obese male, with a history of asthma, bacteremia, recurring cellulitis, DM, HLD, HTN, and tobacco cigarette use, presents with c/o open ulcer wound to bilateral lower legs, with associated pain, and numbness to bilateral feet for the past 2x months, today. He reports on progressively worsening symptoms following unprovoked onset. Patient endorses on no medical intervention for symptoms, with exception of antibiotics he was prescribed following last hospital admission at [facility] for an abscess he developed in his back in September 2024. He denies any fever, chills, weakness, tingling, or other associated symptoms or modifiers at this time. Chief Complaint: Lower Extremity Time Seen by MD: 01:10 Primary Care Provider: ALBARO Reviewed Notes: Nurses Notes, Medications, Allergies Allergies: Coded Allergies: Fish Allergy (Verified Allergy, Unknown, 01/24/21) Lactose Intolerance (GI) (Verified Allergy, Unknown, 01/24/21) Peanut-containing Drug Products (Verified Allergy, Unknown, 01/24/21) Shellfish-derived Products (Verified Allergy, Unknown, 07/12/20) Home Meds Active Scripts Hydrocodone-Acetaminophen (Hydrocodone Bitartrate/AC 5-325 mg) 1 Tab Tab, 1 TAB PO QID PRN, #30 TAB Prov:VALENTINO BORGES MD 09/21/24 Clindamycin Hcl (Clindamycin Hcl) 300 Mg Cap, 1 CAP PO TID, #45 CAP Prov:VALENTINO BORGES MD 09/21/24 Clindamycin Hcl (Cleocin) 300 Mg Cap, 300 MG PO Q8HR for 10 Days, #30 CAP Prov:HUA GOLDEN MD 01/10/24 Metformin HCl (Metformin Hydrochloride) 1,000 Mg Tab, 1000 MG PO BID for 30 Days, #60 TAB Prov:HUA GOLDEN MD 01/10/24 Insulin Glargine (Lantus) 100 Unit/Ml Inj, 20 UNIT SC BID, #1000 UNITS Prov:HUA GOLDEN MD 01/10/24 Adhesive Tape (EQL ADHESIVE TAPE 1/2"X10) 1 Mg/2 X10yd Tap, MG XX, #1 Prov:MELISSA AIKEN [employer]UMBING ENGINEERING [employer]RAFTSPERSON 11/19/23 Gauze Pads & Dressings (Curity Iodoform Packing S) Strip Mis, BOT XX EOD, #1 Prov:MELISSA AIKEN [employer]UMBING ENGINEERING DRAFTSPERSON 11/19/23 Gauze Pads & Dressings (Curity Gauze Sponge 4"X4") 4 " Pad, " XX DAILY, #14 Prov:MELISSA AIKEN PLUMBING ENGINEERING DRAFTSPERSON 11/19/23 Sulfamethoxazole W/Trimethopri (Bactrim Ds Tablet) 1 Tab Tb, 1 TAB PO BID for 7 Days, #14 TAB Prov:MELISSA AIKEN [employer]UM[employer]ING ENGINEERING DRAFTSPERSON 11/19/23 Oxycodone W/ Acetaminophen (Percocet 5/325MG) 1 Tab Tb, 1 TAB PO QID for 7 Days, #28 TAB Prov:MELISSA AIKEN PLUMBING ENGINEERING DRAFTSPERSON 11/19/23 Metformin Hydrochloride (Metformin Hcl) 1,000 Mg Tab, 1 TAB PO BID, #60 TAB Prov:THERON STARR MD 01/26/21 Insulin Glargine (Lantus) 100 Unit/Ml Inj, 20 UNIT SC HS for 30 Days, #30 INJ Prov:THERON STARR MD 01/26/21 Reported Medications Atorvastatin Calcium (ATORVASTATIN CALCIUM) 40 Mg Tab, 40 MG PO DAILY, TAB 11/14/23 Albuterol Sulfate (VENTOLIN MDI) 90 Mcg Ih, 90 MCG IN Q4HPRN PRN for SHORTNESS OF BREATH 11/18/15 Information Source: Patient Mode of Arrival: Ambulatory Severity: Moderate Timing: Months Duration: Since onset Prehospital treatment: None Past Medical History PAST MEDICAL HISTORY: Asthma, DM, High Lipids, HTN Past Medical History (Other): recurrent cellulitis Bacteremia Surgical History: Denies all surgeries Family History Family History: Family hx of DM, Family hx of heart paul Social History Smoker: Cigarettes Alcohol: Denies ETOH Use Drugs: Marijuana Lives In: Home All Other Systems: Reviewed and Negative (Comprehensive systems review obtained and negative except for what is stated in the HPI.) Physical Exam General Appearance: No Apparent Distress, Obese HEENT: Normal ENT Inspection, Pharynx Normal, TMs Normal Neck: Full Range of Motion, Non-Tender, Normal, Normal Inspection Respiratory: Chest Non-Tender, Lungs Clear, No Accessory Muscle Use, No Respiratory Distress, Normal Breath Sounds Cardiovascular: No Edema, No JVD, No Murmur, No Gallop, Normal Peripheral Pulses, Regular Rate/Rhythm Breast Exam: Deferred Gastrointestinal: No Organomegaly, Non Tender, No Pulsatile Mass, Normal Bowel Sounds, Soft Genitalia: Deferred Pelvic: Deferred Rectal: Deferred Extremities: No calf tenderness, Normal capillary refill, Normal range of motion, Non-tender, No pedal edema, Other (multiple ulcerations to bilateral lower extremities) Musculoskeletal : Apperance: Normal Neurologic: Alert, vocational rehabilitation consultant II-XII nml as Tested, No Motor Deficits, Normal Affect, Normal Mood, No Sensory Deficits Cerebellar Function: Normal Reflexes: Normal Skin: Dry, Normal Color, Warm, Wounds (multiple ulcerations to bilateral lower extremities) Lymphatic: No Adenopathy Was a procedure done? Was a procedure done?: No Differential Dx Considerations may include: cellulitis, dermatitis, unhealing diabetic wound, among others X-Ray, Labs, Meds, VS Vital Signs Date Time Temp Pulse Resp B/P (MAP) Pulse Ox O2 Delivery O2 Flow Rate FiO2 01/13/25 02:45 97.6 92 16 134/103 (113) 95 97.6 01/13/25 00:30 98.3 99 16 122/89 (100) 99 98.3 Lab Test 01/13/25 02:52 01/13/25 01:50 01/13/25 01:40 Range/Units Urine Color Light-yellow Yellow Urine Clarity Clear Clear Urine pH 5.5 5.0-9.0 Urine Specific [place] 1.028 1.001-1.035 Urine Protein Trace H Negative Urine Ketones Negative Negative Urine Blood Negative Negative /uL Urine Nitrite Negative Negative Urine Bilirubin Negative Negative Urine Urobilinogen 2 H Negative mg/dL Urine Leukocyte Esterase Negative Negative /uL Urine RBC 1 0 - 3 /hpf Urine Microscopic WBC 1 0-3 /HPF Urine Squamous Epithelial Cells Few <5 /hpf Urine Bacteria None seen None Seen /hpf Urine Mucus Few None Seen Urine Sperm Present None Seen /hpf Urine Glucose 1+ H Normal mg/dL White Blood Count 7.2 4.4-10.8 10^3/uL Red Blood Count 5.29 4.5-5.90 10^6/uL Hemoglobin 15.2 13.5-17.5 g/dL Hematocrit 45.9 41.0-53.0 % Mean Corpuscular Volume 86.8 80.0-100.0 fL Mean Corpuscular Hemoglobin 28.8 28.0-32.0 pg Mean Corpuscular Hemoglobin Concent 33.2 32.0-36.0 g/dL Red Cell Distribution Width 14.7 H 11.8-14.3 % Platelet Count 204 140-450 10^3/uL Mean Platelet Volume 10.2 6.9-10.8 fL Neutrophils (%) (Auto) 56.1 37.0-80.0 % Lymphocytes (%) (Auto) 27.7 10.0-50.0 % Monocytes (%) (Auto) 8.1 0.0-12.0 % Eosinophils (%) (Auto) 7.4 H 0.0-7.0 % Basophils (%) (Auto) 0.7 0.0-2.0 % Neutrophils # (Auto) 4.1 1.6-8.6 10 ^3/uL Lymphocytes # (Auto) 2.0 0.4-5.4 10 ^3/uL Monocytes # (Auto) 0.6 0-1.3 10 ^3/uL Eosinophils # (Auto) 0.5 0-0.8 10 ^3/uL Basophils # (Auto) 0.1 0-0.2 10 ^3/uL Nucleated Red Blood Cells 0.0 % Sodium Level 136 136-145 mmol/L Potassium Level 4.2 3.5-5.1 mmol/L Chloride Level 102 98-107 mmol/L Carbon Dioxide Level 25 20-31 mmol/L Anion Gap 9 5-15 Blood Urea Nitrogen 16 9-23 mg/dL Creatinine 1.14 0.700-1.30 mg/dL Glomerular Filtration Rate Calc 83 >90 mL/min BUN/Creatinine Ratio 14.0 10.0-20.0 Serum Glucose 219 H 74-106 mg/dL Calcium Level 10.8 H 8.7-10.4 mg/dL Total Bilirubin 0.5 0.2-1.0 mg/dL Aspartate Amino Transferase (AST) 13 13-40 U/L Alanine Aminotransferase (ALT) 21 7-40 U/L Alkaline Phosphatase 83 46-116 U/L Total Protein 8.3 H 5.7-8.2 g/dL Albumin 4.5 3.2-4.8 g/dL Lactic Acid Level 1.5 0.4-2.0 mmol/L Time of 1ST Reevaluation: 01:40 Reevaluation 1ST: Unchanged Patient Education/Counseling: Diagnosis, Treatment Family Education/Counseling: No Family Present Additional Information Previous visit documents reviewed: September 15, 2024 encounter for cellulitis of upper back The following tests were ordered, and results were reviewed by me: UA, LA w/reflex, CMP, CBC Additional Information was gathered from interviewing the following independent historians: n/a I reviewed and agreed with the following test results read by other providers: n/a I discussed treatment and results with medical personnel and: Patient Departure 1 Departure Time of Disposition: 04:39 (Patient with uncontrolled diabetes and bilateral lower extremity cellulitis. Patient has failed outpatient antibiotics and was very poor follow up. We will admit patient for further workup and expert consultation) Impression: Primary Impression: Bilateral lower leg cellulitis Additional Impression: Uncontrolled diabetes mellitus Qualified Codes: E11.65 - Type 2 diabetes mellitus with hyperglycemia Disposition: ADMITTED INPATIENT Admit to: Med Surg Condition: Serious Critical Care Note Critical Care Time?: No Stability Stability form required: No Heart Score Heart Score: Heart Score Response (Comments) Value History N/A 0 EKG N/A 0 Age N/A 0 Risk Factors N/A 0 Troponin N/A 0 Total 0 I personally scribed for LANE GUADARRAMA MD ([email or web address]) on 01/13/25 at 02:52. Electronically submitted by Lucius Welsh ([email or web address]). LANE GUADARRAMA MD Jan 13, 2025 02:52
[2025-01-13 02:53] LABS: Aspartate Aminotransferase 13 U/L (13-40); Calcium 10.8 mg/dL (8.7-10.4); Glucose 219 mg/dL (74-106); Sodium 136 mmol/L (136-145); Total Protein 8.3 g/dL (5.7-8.2)
[2025-01-13 03:10] LABS: Urine Bacteria None Seen /hpf (None Seen)
[2025-01-13 03:58] LABS: Urine Blood Negative /uL (Negative); Urine Clarity Clear (Clear); Urine Color Light-Yellow (Yellow); Urine Mucus FEW (None Seen); Urine Protein, UAD TRACE (Negative); Urine Specific Gravity 1.028 (1.001-1.035); Urine Sperm PRESENT /hpf (None Seen); Urine Squamous Epithelial Cell FEW /hpf (<5); Urine Urobilinogen 2 mg/dL (Negative); Urine WBC 1 /HPF (0-3); Urine pH 5.5 (5.0-9.0)
[2025-01-13] MEDS: VANCOMYCIN 1GM/250ML KIT 200 ML IV ONE (06:47)
[2025-01-13 07:22] VITALS: RESP 18; O2SAT 98
[2025-01-13] MEDS ORDERED: ACETAMINOPHEN 325 MG TAB PO PRN (09:45)
[2025-01-13] MEDS ORDERED: DOCUSATE SOD 100 MG CAP PO PRN (09:45)
[2025-01-13] MEDS ORDERED: DEXTROSE (50%) 50ML SYRG IV PRN (09:45)
--- NOTE | 2025-01-13 10:06 | DVHHP2 ---
History of Present Illness Reason for Visit: Lower extremity pain History of Present Illness Cuca Montes is a 39-year-old male, with past medical history of diabetes, asthma, hypertension, and hyperlipidemia that he does not take any medications for, who is here for bilateral upper and lower extremities open wounds. Patient states that he has had the wounds for a few months. That they seemed like they were getting better, but worsened. Cardiovascular: HTN, hyperipidemia Pulmonary: Asthma Endocrine: Diabetes Past Surgical History: Other (back abscess) Smoke: 1 pack per day ALCOHOL: none Drugs: None Lives: with Family Domestic Violence: Neg Review of Systems Constitutional: No: Fever, Chills, Sweats, Weakness, Malaise, Other Eyes: No: Pain, Vision change, Conjunctivae inflammation, Eyelid inflammation, Other, Redness ENT: No: Ear pain, Ear discharge, Nose pain, Nose discharge, Nose congestion, Mouth pain, Mouth swelling, Throat pain, Throat swelling, Other Respiratory: No: Cough, Dry, Shortness of breath, SOB with excertion, Wheezing, Hemoptysis, Pleuritic Pain, Sputum, Wheezing, Other Cardiovascular: No: Chest Pain, Palpitations, Orthopnea, Paroxysmal Noc. Dyspnea, Edema, Lt Headedness, Other Gastrointestinal: No: Nausea, Vomiting, Abdominal Pain, Diarrhea, Constipation, Melena, Hematochezia, Other Genitourinary: No Dysuria, No Frequency, No Incontinence, No Hematuria, No Retention, No Other Musculoskeletal: other (bilateral upper and lower extremities open wounds); No: neck pain, shoulder pain, arm pain, back pain, hand pain, leg pain, foot pain Skin: No: Rash, Lesions, Jaundice, Bruising, Other Neurological: No: Weakness, Numbness, Incoordination, Change in speech, Confusion, Seizures, Other Allergies: Coded Allergies: Fish Allergy (Verified Allergy, Unknown, 01/24/21) Lactose Intolerance (GI) (Verified Allergy, Unknown, 01/24/21) Peanut-containing Drug Products (Verified Allergy, Unknown, 01/24/21) Shellfish-derived Products (Verified Allergy, Unknown, 07/12/20) Exam Vital Signs Vital Signs Date Time Temp Pulse Resp B/P (MAP) Pulse Ox O2 Delivery O2 Flow Rate FiO2 01/13/25 09:02 84 20 01/13/25 09:02 98.6 131/87 (102) 96 98.6 01/13/25 07:22 Room Air* 0 21 General Appearance: Alert, Oriented X3, Cooperative, moderate distress HEENT: Atraumatic, PERRLA Respiratory: Clear to auscultation, Normal air movement Cardiovascular: Regular rate, Normal S1, Normal S2 Abdominal: Normal bowel sounds, Soft, No tenderness, No hepatospenomegaly Extremities: Normal pulses, Other (bilateral upper and lower extremities open wounds) Labs/Xrays Labs Test 01/13/25 02:52 01/13/25 01:50 01/13/25 01:40 Range/Units Urine Color Light-yellow Yellow Urine Clarity Clear Clear Urine pH 5.5 5.0-9.0 Urine Specific [place] 1.028 1.001-1.035 Urine Protein Trace H Negative Urine Ketones Negative Negative Urine Blood Negative Negative /uL Urine Nitrite Negative Negative Urine Bilirubin Negative Negative Urine Urobilinogen 2 H Negative mg/dL Urine Leukocyte Esterase Negative Negative /uL Urine RBC 1 0 - 3 /hpf Urine Microscopic WBC 1 0-3 /HPF Urine Squamous Epithelial Cells Few <5 /hpf Urine Bacteria None seen None Seen /hpf Urine Mucus Few None Seen Urine Sperm Present None Seen /hpf Urine Glucose 1+ H Normal mg/dL White Blood Count 7.2 4.4-10.8 10^3/uL Red Blood Count 5.29 4.5-5.90 10^6/uL Hemoglobin 15.2 13.5-17.5 g/dL Hematocrit 45.9 41.0-53.0 % Mean Corpuscular Volume 86.8 80.0-100.0 fL Mean Corpuscular Hemoglobin 28.8 28.0-32.0 pg Mean Corpuscular Hemoglobin Concent 33.2 32.0-36.0 g/dL Red Cell Distribution Width 14.7 H 11.8-14.3 % Platelet Count 204 140-450 10^3/uL Mean Platelet Volume 10.2 6.9-10.8 fL Neutrophils (%) (Auto) 56.1 37.0-80.0 % Lymphocytes (%) (Auto) 27.7 10.0-50.0 % Monocytes (%) (Auto) 8.1 0.0-12.0 % Eosinophils (%) (Auto) 7.4 H 0.0-7.0 % Basophils (%) (Auto) 0.7 0.0-2.0 % Neutrophils # (Auto) 4.1 1.6-8.6 10 ^3/uL Lymphocytes # (Auto) 2.0 0.4-5.4 10 ^3/uL Monocytes # (Auto) 0.6 0-1.3 10 ^3/uL Eosinophils # (Auto) 0.5 0-0.8 10 ^3/uL Basophils # (Auto) 0.1 0-0.2 10 ^3/uL Nucleated Red Blood Cells 0.0 % Sodium Level 136 136-145 mmol/L Potassium Level 4.2 3.5-5.1 mmol/L Chloride Level 102 98-107 mmol/L Carbon Dioxide Level 25 20-31 mmol/L Anion Gap 9 5-15 Blood Urea Nitrogen 16 9-23 mg/dL Creatinine 1.14 0.700-1.30 mg/dL Glomerular Filtration Rate Calc 83 >90 mL/min BUN/Creatinine Ratio 14.0 10.0-20.0 Serum Glucose 219 H 74-106 mg/dL Calcium Level 10.8 H 8.7-10.4 mg/dL Total Bilirubin 0.5 0.2-1.0 mg/dL Aspartate Amino Transferase (AST) 13 13-40 U/L Alanine Aminotransferase (ALT) 21 7-40 U/L Alkaline Phosphatase 83 46-116 U/L Total Protein 8.3 H 5.7-8.2 g/dL Albumin 4.5 3.2-4.8 g/dL Lactic Acid Level 1.5 0.4-2.0 mmol/L EXAM: XY CHEST XRAY 1 VIEW FINDINGS: Lines and Tubes: None Lungs: No focal consolidation. Pleura: No effusion. No pneumothorax. Cardiomediastinal contours: Unremarkable Bones: No acute osseous abnormality. IMPRESSION: No acute cardiopulmonary disease. Assessment/Plan Assessment/Plan Assessment: Bilateral lower leg cellulitis, Possible vasculitis, Bilateral upper and lower extremity open wounds, Plan: Admit to Med-Surg, Wound care consult, Wound culture, H1V, Hepatitis panel, A1c, Accu checks Q AC&HS with sliding scale, Plan discussed with: Patient My Orders Orders - HAWK NAVAS Procedure Category Date Status Time Admit ADMIT 01/13/25 Verified 09:37 Code Status CODE 01/13/25 Verified 09:37 2 Gm Sodium Diet DIET 01/13/25 Verified Lunch Hydrocodone-Acet PHA 01/13/25 Verified 5/325mg Tab (Donaldson 09:45 Ondansetron Hcl PHA 01/13/25 Verified (Zofran) 09:45 Docusate Sodium PHA 01/13/25 Verified Capsule (Colace 09:45 Complete Blood Count LAB 01/14/25 Verified 04:00 Comprehensive LAB 01/14/25 Verified Metabolic Panel 04:00 Condition: Serious DELIA 01/13/25 Verified 09:37 Acetaminophen Tablet PHA 01/13/25 Verified (Tylenol Tablet) 09:45 Morphine Sulfate PHA 01/13/25 Verified Injection 09:45 Glucose Blood PHA 01/13/25 Verified (Accu-Chek Comfort 11:30 Bedtime Insulin Scale PHA 01/13/25 Verified 22:00 Moderate Insulin Ss PHA 01/13/25 Verified 11:30 Dextrose 50% Syringe PHA 01/13/25 Verified 09:45 * Wound Consult CONS 01/13/25 Verified Wound Culture W/ Gs CHIQUITA 01/13/25 Verified 09:37 Clindamycin Ivpb PHA 01/13/25 Verified Cleocin 14:00 Date of Service: Jan 13, 2025 Billing Provider: HAWK NAVAS Common Visit Codes: [id number] INP/OBS CARE (HIGH) HAWK NAVAS Jan 13, 2025 10:06
--- NOTE | 2025-01-13 10:34 | DVH ---
EXAM: XY CHEST XRAY 1 VIEW Indication: short of breath Technique: Single frontal view of the chest was obtained Comparison: CHEST PORTABLE on DOS: 01/24/21 FINDINGS: Lines and Tubes: None Lungs: No focal consolidation. Pleura: No effusion. No pneumothorax. Cardiomediastinal contours: Unremarkable Bones: No acute osseous abnormality. IMPRESSION: No acute cardiopulmonary disease.
[2025-01-13] MEDS: ALPRAZolam 0.5 MG TAB PO ONE (11:07)
[2025-01-13 11:11] LABS: Amphetamine Screen, Urine Neg (NEGATIVE)
[2025-01-13 11:12] LABS: Opiate Scree,Urine Neg (NEGATIVE)
[2025-01-13 11:15] LABS: Barbiturate Scree,Urine Neg (NEGATIVE); Benzodiazephine Screen, Urine Neg (NEGATIVE); Cannabinoid Screen, Urine Neg (NEGATIVE); Cocaine Screen, Urine Neg (NEGATIVE); Phencyclidine Screen, Urine Neg (NEGATIVE)
[2025-01-13] MEDS: ONDANSETRON HCL 4 MG/2 ML VIAL IV PRN (11:26)
[2025-01-13] MEDS: MORPHINE SULFATE INJ 2 MG/ml SYRG IV PRN (11:27)
[2025-01-13] MEDS: ACCU-CHEK COMFORT CURVE STRIP VI SCH (12:15)
[2025-01-13] MEDS: InsuLIN REG 1unit/0.01ml Soln (100units/ml) SC SCH ×2 (13:00→22:05)
[2025-01-13 14:27] VITALS: BP 127/80; PULSE 94; RESP 18; TEMP 97.7; O2SAT 96
[2025-01-13] MEDS: CLINDAMYCIN 600MG IV 50 ML IV SCH (14:42)
[2025-01-13 15:01] VITALS: BP 148/78; PULSE 86; RESP 18; TEMP 98.8; O2SAT 98
[2025-01-13 16:53] VITALS: BP 113/68; PULSE 87; RESP 20; TEMP 97.6; O2SAT 99
[2025-01-13 20:00] VITALS: PULSE 89; RESP 19; O2SAT 97
[2025-01-13 21:00] VITALS: BP 123/70; PULSE 89; RESP 20; TEMP 97.9; O2SAT 97
[2025-01-14] VITALS (8 sets, daily range): BP systolic 111–128; BP diastolic 68–79; PULSE 75–85; RESP 19–20; TEMP 97.8–98.6; O2SAT 93–98
[2025-01-14 05:51] LABS: Basophils # (auto) 0 10 ^3/uL (0-0.2); Basophils % (auto) 0.7 % (0.0-2.0); Eosinophils # (auto) 0.5 10 ^3/uL (0-0.8); Eosinophils % (auto) 8.6 % (0.0-7.0); Hematocrit 44.3 % (41.0-53.0); Hemoglobin 14.5 g/dL (13.5-17.5); Lymphocytes # (auto) 1.6 10 ^3/uL (0.4-5.4); Lymphocytes % (auto) 28.3 % (10.0-50.0); Mean Corpuscular Hemoglobin 28.5 pg (28.0-32.0); Mean Corpuscular Hgb Conc. 32.7 g/dL (32.0-36.0); Mean Corpuscular Volume 87.1 fL (80.0-100.0); Monocytes # (auto) 0.5 10 ^3/uL (0-1.3); Monocytes % (auto) 8.2 % (0.0-12.0); Neutrophils # (auto) 3.1 10 ^3/uL (1.6-8.6); Neutrophils % (auto) 54.2 % (37.0-80.0); Nucleated Red Blood Cells % 0.1 %; Platelet Count (auto) 195 10^3/uL (140-450); Red Blood Cells 5.08 10^6/uL (4.5-5.90); Red Cell Distribution Width 14.4 % (11.8-14.3); White Blood Cell 5.7 10^3/uL (4.4-10.8)
[2025-01-14 06:01] LABS: Alanine Aminotransferase 18 U/L (7-40); Albumin 4.3 g/dL (3.2-4.8); Alkaline Phosphatase 73 U/L (46-116); Anion Gap 7 (5-15); Bilirubin, Total 0.6 mg/dL (0.2-1.0); Blood Urea Nitrogen 14 mg/dL (9-23); Calcium 9.9 mg/dL (8.7-10.4); Carbon Dioxide 26 mmol/L (20-31); Chloride 106 mmol/L (98-107); Potassium 4.1 mmol/L (3.5-5.1); Sodium 139 mmol/L (136-145)
[2025-01-14 06:04] LABS: Aspartate Aminotransferase 11 U/L (13-40); Glucose 200 mg/dL (74-106)
--- NOTE | 2025-01-14 14:59 | DVHPN2 ---
Changes from previous H/P or p: No Changes Eyes: No Pain, No Vision change, No Conjunctivae inflammation, No Eyelid inflammation, No Other, No Redness ENT: No Ear pain, No Ear discharge, No Nose pain, No Nose discharge, No Nose congestion, No Mouth pain, No Mouth swelling, No Throat pain, No Throat swelling, No Other Cardiovascular: No Chest Pain, No Palpitations, No Orthopnea, No Paroxysmal Noc. Dyspnea, No Edema, No Lt Headedness, No Other Respiratory: No Cough, No Dry, No Shortness of breath, No SOB with excertion, No Wheezing, No Hemoptysis, No Pleuritic Pain, No Sputum, No Other Gastrointestinal: No Nausea, No Vomiting, No Abdominal Pain, No Diarrhea, No Constipation, No Melena, No Hematochezia, No Other Genitourinary: No Dysuria, No Frequency, No Incontinence, No Hematuria, No Retention, No Other Musculoskeletal: other (bilateral upper and lower extremities open wounds); No neck pain, No shoulder pain, No arm pain, No back pain, No hand pain, No leg pain, No foot pain Skin: No Rash, No Lesions, No Jaundice, No Bruising, No Other Objective Vitals Vital Signs Date Time Temp Pulse Resp B/P (MAP) Pulse Ox O2 Delivery O2 Flow Rate FiO2 01/14/25 12:34 97.8 82 20 116/74 (88) 98 97.8 01/14/25 08:00 Room Air* 0 21 Intake/Output Intake and Output 01/14/25 06:59 Intake Total 1400 ml Balance 1400 ml Intake Oral 1300 ml IV Total 100 ml # Voids 2 Medications Current Medications Medications Dose Ordered Sig/Helen Route Start Time Stop Time Status Last Admin Dose Admin Acetaminophen/ Hydrocodone Bitart 1 tab Q4HP PRN PO 01/13/25 09:45 Ondansetron HCl 4 mg Q4HP PRN IV 01/13/25 09:45 01/13/25 11:26 4 MG Docusate Sodium 100 mg BIDPRN PRN PO 01/13/25 09:45 Acetaminophen 650 mg Q6HP PRN PO 01/13/25 09:45 Morphine Sulfate 2 mg Q4HPRN PRN IV 01/13/25 09:45 01/14/25 10:35 2 MG Diagnostic Test (Pha) 1 strip ACHS 01/13/25 11:30 01/14/25 13:01 1 STRIP Insulin Human Regular HS SC 01/13/25 22:00 01/13/25 22:05 4 UNITS Insulin Human Regular AC SC 01/13/25 11:30 01/14/25 12:59 3 UNITS Dextrose 50 ml UD PRN IV 01/13/25 09:45 Clindamycin Phosphate 50 ml @ 50 mls/hr Q8HR IV 01/13/25 14:00 01/14/25 06:23 50 MLS/HR Laboratory Results Laboratory Tests 01/14/25 05:04 Chemistry Test 01/14/25 05:04 Albumin 4.3 g/dL (3.2-4.8) Calcium Level 9.9 mg/dL (8.7-10.4) Total Protein 8.0 g/dL (5.7-8.2) LFT Test 01/14/25 05:04 Alanine Aminotransferase (ALT) 18 U/L (7-40) Alkaline Phosphatase 73 U/L (46-116) Aspartate Amino Transferase (AST) 11 U/L (13-40) L Total Bilirubin 0.6 mg/dL (0.2-1.0) Urinalysis Test 01/13/25 02:52 Urine Color Light-yellow (Yellow) Urine Clarity Clear (Clear) Urine pH 5.5 (5.0-9.0) Urine Specific [place] 1.028 (1.001-1.035) Urine Protein Trace (Negative) H Urine Ketones Negative (Negative) Urine Blood Negative /uL (Negative) Urine Nitrite Negative (Negative) Urine Bilirubin Negative (Negative) Urine Urobilinogen 2 mg/dL (Negative) H Urine Leukocyte Esterase Negative /uL (Negative) Urine RBC 1 /hpf (0 - 3) Urine Microscopic WBC 1 /HPF (0-3) Urine Squamous Epithelial Cells Few /hpf (<5) Urine Bacteria None seen /hpf (None Seen) Urine Mucus Few (None Seen) Urine Sperm Present /hpf (None Seen) Urine Glucose 1+ mg/dL (Normal) H Microbiology Microbiology Date/Time Source Procedure Growth Status 01/13/25 01:40 Blood Blood Culture - Preliminary NO GROWTH AFTER 24 HOURS OF INCUBATION. Resulted Labs and/or images reviewed: Labs reviewed by me, Image(s) reviewed by me Assessment/Plan Assessment/Plan Bilateral lower leg cellulitis, : Clindamycin Possible vasculitis, Bilateral upper and lower extremity open wounds, wound cultures Plan discussed with: Patient My Orders Orders - VALENTINO BORGES MD Procedure Category Date Status Time Cleanse Wound With DELIA 01/14/25 In Process Wound Clean 10:05 * Dietary Consult CONS 01/14/25 Transmitted 11:14 Date of Service: Jan 14, 2025 Billing Provider: VALENTINO BORGES MD Common Visit Codes: [id number] INP/OBS CARE(HIGH) VALENTINO BORGES MD Jan 14, 2025 14:59
[2025-01-15 01:00] VITALS: BP 131/84; PULSE 79; RESP 20; TEMP 97.3; O2SAT 93
[2025-01-15 04:27] VITALS: BP 128/85; PULSE 81; RESP 20; TEMP 98.1; O2SAT 97
[2025-01-15 08:00] VITALS: PULSE 83; RESP 19; O2SAT 96
--- NOTE | 2025-01-15 09:24 | DVHPN2 ---
Reviewed: Care Plan, H&P, Labs, Medications, Previous Orders, Radiology Changes from previous H/P or p: No Changes Eyes: No Pain, No Vision change, No Conjunctivae inflammation, No Eyelid inflammation, No Other, No Redness ENT: No Ear pain, No Ear discharge, No Nose pain, No Nose discharge, No Nose congestion, No Mouth pain, No Mouth swelling, No Throat pain, No Throat swelling, No Other Cardiovascular: No Chest Pain, No Palpitations, No Orthopnea, No Paroxysmal Noc. Dyspnea, No Edema, No Lt Headedness, No Other Respiratory: No Cough, No Dry, No Shortness of breath, No SOB with excertion, No Wheezing, No Hemoptysis, No Pleuritic Pain, No Sputum, No Other Gastrointestinal: No Nausea, No Vomiting, No Abdominal Pain, No Diarrhea, No Constipation, No Melena, No Hematochezia, No Other Genitourinary: No Dysuria, No Frequency, No Incontinence, No Hematuria, No Retention, No Other Musculoskeletal: other (bilateral upper and lower extremities open wounds); No neck pain, No shoulder pain, No arm pain, No back pain, No hand pain, No leg pain, No foot pain Skin: No Rash, No Lesions, No Jaundice, No Bruising, No Other Objective Vitals Vital Signs Date Time Temp Pulse Resp B/P (MAP) Pulse Ox O2 Delivery O2 Flow Rate FiO2 01/15/25 08:00 83 19 96 Room Air* 0 21 01/15/25 04:27 98.1 128/85 (99) 98.1 Intake/Output Intake and Output 01/15/25 07:00 Intake Total 3200 ml Balance 3200 ml Intake Oral 2600 ml IV Total 600 ml # Voids 6 Medications Current Medications Medications Dose Ordered Sig/Helen Route Start Time Stop Time Status Last Admin Dose Admin Acetaminophen/ Hydrocodone Bitart 1 tab Q4HP PRN PO 01/13/25 09:45 Ondansetron HCl 4 mg Q4HP PRN IV 01/13/25 09:45 01/13/25 11:26 4 MG Docusate Sodium 100 mg BIDPRN PRN PO 01/13/25 09:45 Acetaminophen 650 mg Q6HP PRN PO 01/13/25 09:45 Morphine Sulfate 2 mg Q4HPRN PRN IV 01/13/25 09:45 01/15/25 04:27 2 MG Diagnostic Test (Pha) 1 strip ACHS 01/13/25 11:30 01/15/25 06:16 1 STRIP Insulin Human Regular HS SC 01/13/25 22:00 01/14/25 21:39 3 UNITS Insulin Human Regular AC SC 01/13/25 11:30 01/15/25 06:17 9 UNITS Dextrose 50 ml UD PRN IV 01/13/25 09:45 Clindamycin Phosphate 50 ml @ 50 mls/hr Q8HR IV 01/13/25 14:00 01/15/25 05:24 50 MLS/HR Laboratory Results Laboratory Tests 01/14/25 05:04 Urinalysis Test 01/13/25 02:52 Urine Color Light-yellow (Yellow) Urine Clarity Clear (Clear) Urine pH 5.5 (5.0-9.0) Urine Specific [place] 1.028 (1.001-1.035) Urine Protein Trace (Negative) H Urine Ketones Negative (Negative) Urine Blood Negative /uL (Negative) Urine Nitrite Negative (Negative) Urine Bilirubin Negative (Negative) Urine Urobilinogen 2 mg/dL (Negative) H Urine Leukocyte Esterase Negative /uL (Negative) Urine RBC 1 /hpf (0 - 3) Urine Microscopic WBC 1 /HPF (0-3) Urine Squamous Epithelial Cells Few /hpf (<5) Urine Bacteria None seen /hpf (None Seen) Urine Mucus Few (None Seen) Urine Sperm Present /hpf (None Seen) Urine Glucose 1+ mg/dL (Normal) H Microbiology Microbiology Date/Time Source Procedure Growth Status 01/13/25 01:40 Blood Blood Culture - Preliminary NO GROWTH AFTER 48 HOURS OF INCUBATION. Resulted Labs and/or images reviewed: Labs reviewed by me, Image(s) reviewed by me Assessment/Plan Assessment/Plan Bilateral lower leg cellulitis, : Clindamycin Possible vasculitis, Bilateral upper and lower extremity open wounds, wound cultures pending Blood Cultures negative Chronic current smoker: Counseling, nicotine patch Plan discussed with: Patient My Orders Orders - VALENTINO BORGES MD Procedure Category Date Status Time Cleanse Wound With DELIA 01/14/25 In Process Wound Clean 10:05 * Dietary Consult CONS 01/14/25 Transmitted 11:14 Date of Service: Jan 15, 2025 Billing Provider: VALENTINO BORGES MD Common Visit Codes: [id number] INP/OBS CARE(HIGH) VALENTINO BORGES MD Jan 15, 2025 09:24
[2025-01-15] MEDS: NICOTINE 21MG/24 HR TOPICAL PATCH TD SCH (10:00)
[2025-01-15 16:32] VITALS: BP 121/74; PULSE 90; RESP 16; TEMP 98; O2SAT 97
[2025-01-15 21:00] VITALS: BP 117/73; PULSE 83; RESP 19; TEMP 97.7; O2SAT 96
[2025-01-16] VITALS (8 sets, daily range): BP systolic 104–125; BP diastolic 60–82; PULSE 74–99; RESP 18–20; TEMP 97.5–98.8; O2SAT 89–99
--- NOTE | 2025-01-16 08:25 | DVHPN2 ---
Reviewed: Care Plan, H&P, Labs, Medications, Previous Orders, Radiology Changes from previous H/P or p: No Changes Eyes: No Pain, No Vision change, No Conjunctivae inflammation, No Eyelid inflammation, No Other, No Redness ENT: No Ear pain, No Ear discharge, No Nose pain, No Nose discharge, No Nose congestion, No Mouth pain, No Mouth swelling, No Throat pain, No Throat swelling, No Other Cardiovascular: No Chest Pain, No Palpitations, No Orthopnea, No Paroxysmal Noc. Dyspnea, No Edema, No Lt Headedness, No Other Respiratory: No Cough, No Dry, No Shortness of breath, No SOB with excertion, No Wheezing, No Hemoptysis, No Pleuritic Pain, No Sputum, No Other Gastrointestinal: No Nausea, No Vomiting, No Abdominal Pain, No Diarrhea, No Constipation, No Melena, No Hematochezia, No Other Genitourinary: No Dysuria, No Frequency, No Incontinence, No Hematuria, No Retention, No Other Musculoskeletal: other (bilateral upper and lower extremities open wounds); No neck pain, No shoulder pain, No arm pain, No back pain, No hand pain, No leg pain, No foot pain Skin: No Rash, No Lesions, No Jaundice, No Bruising, No Other Objective Vitals Vital Signs Date Time Temp Pulse Resp B/P (MAP) Pulse Ox O2 Delivery O2 Flow Rate FiO2 01/16/25 06:51 78 16 104/60 01/16/25 05:00 97.6 96 97.6 01/15/25 20:00 Room Air* 0 21 Intake/Output Intake and Output 01/16/25 06:59 Intake Total 980 ml Balance 980 ml Intake Oral 830 ml IV Total 150 ml # Voids 6 Medications Current Medications Medications Dose Ordered Sig/Helen Route Start Time Stop Time Status Last Admin Dose Admin Acetaminophen/ Hydrocodone Bitart 1 tab Q4HP PRN PO 01/13/25 09:45 Ondansetron HCl 4 mg Q4HP PRN IV 01/13/25 09:45 01/13/25 11:26 4 MG Docusate Sodium 100 mg BIDPRN PRN PO 01/13/25 09:45 Acetaminophen 650 mg Q6HP PRN PO 01/13/25 09:45 Morphine Sulfate 2 mg Q4HPRN PRN IV 01/13/25 09:45 01/16/25 06:21 2 MG Diagnostic Test (Pha) 1 strip ACHS 01/13/25 11:30 01/16/25 06:20 1 STRIP Insulin Human Regular HS SC 01/13/25 22:00 01/15/25 21:49 2 UNITS Insulin Human Regular AC SC 01/13/25 11:30 01/16/25 06:20 6 UNITS Dextrose 50 ml UD PRN IV 01/13/25 09:45 Clindamycin Phosphate 50 ml @ 50 mls/hr Q8HR IV 01/13/25 14:00 01/16/25 05:53 50 MLS/HR Nicotine 1 patch DAILY TD 01/15/25 10:00 Laboratory Results Laboratory Tests 01/14/25 05:04 Urinalysis Test 01/13/25 02:52 Urine Color Light-yellow (Yellow) Urine Clarity Clear (Clear) Urine pH 5.5 (5.0-9.0) Urine Specific [place] 1.028 (1.001-1.035) Urine Protein Trace (Negative) H Urine Ketones Negative (Negative) Urine Blood Negative /uL (Negative) Urine Nitrite Negative (Negative) Urine Bilirubin Negative (Negative) Urine Urobilinogen 2 mg/dL (Negative) H Urine Leukocyte Esterase Negative /uL (Negative) Urine RBC 1 /hpf (0 - 3) Urine Microscopic WBC 1 /HPF (0-3) Urine Squamous Epithelial Cells Few /hpf (<5) Urine Bacteria None seen /hpf (None Seen) Urine Mucus Few (None Seen) Urine Sperm Present /hpf (None Seen) Urine Glucose 1+ mg/dL (Normal) H Microbiology Microbiology Date/Time Source Procedure Growth Status 01/14/25 10:20 Leg Gram Stain - Final Resulted 01/14/25 10:20 Leg Wound Culture - Preliminary Resulted 01/13/25 01:40 Blood Blood Culture - Preliminary NO GROWTH AFTER 72 HOURS OF INCUBATION. Resulted Labs and/or images reviewed: Labs reviewed by me, Image(s) reviewed by me Assessment/Plan Assessment/Plan Bilateral lower leg cellulitis, : Clindamycin wound cultures report pending Bilateral upper and lower extremity open wounds, wound cultures pending Blood Cultures negative Chronic current smoker: Counseling, nicotine patch Plan discussed with: Patient My Orders Orders - VALENTINO BORGES MD Procedure Category Date Status Time Nicotine 21mg/24hr PHA 01/15/25 In Process (Nicoderm 21mg/24hr) 10:00 Date of Service: Jan 16, 2025 Billing Provider: VALENTINO BORGES MD Common Visit Codes: [id number] INP/OBS CARE(HIGH) VALENTINO BORGES MD Jan 16, 2025 08:25
[2025-01-16] MEDS: HYDROcodone-ACET 5/325MG TAB PO PRN (21:04)
[2025-01-17 01:00] VITALS: BP 113/78; PULSE 78; RESP 20; TEMP 97.7; O2SAT 99
[2025-01-17 04:57] VITALS: BP 119/75; PULSE 80; RESP 20; TEMP 97.9; O2SAT 100
[2025-01-17] MEDS ORDERED: HYDR-4798 PO (07:25)
[2025-01-17] MEDS ORDERED: CLIN1CAP70 PO (07:25)
[2025-01-17] MEDS ORDERED: DIPH25CA66 PO (07:25)
--- NOTE | 2025-01-17 07:27 | DVHPN2 ---
Reviewed: Care Plan, H&P, Labs, Medications, Previous Orders, Radiology Changes from previous H/P or p: No Changes Eyes: No Pain, No Vision change, No Conjunctivae inflammation, No Eyelid inflammation, No Other, No Redness ENT: No Ear pain, No Ear discharge, No Nose pain, No Nose discharge, No Nose congestion, No Mouth pain, No Mouth swelling, No Throat pain, No Throat swelling, No Other Cardiovascular: No Chest Pain, No Palpitations, No Orthopnea, No Paroxysmal Noc. Dyspnea, No Edema, No Lt Headedness, No Other Respiratory: No Cough, No Dry, No Shortness of breath, No SOB with excertion, No Wheezing, No Hemoptysis, No Pleuritic Pain, No Sputum, No Other Gastrointestinal: No Nausea, No Vomiting, No Abdominal Pain, No Diarrhea, No Constipation, No Melena, No Hematochezia, No Other Genitourinary: No Dysuria, No Frequency, No Incontinence, No Hematuria, No Retention, No Other Musculoskeletal: other (bilateral upper and lower extremities open wounds); No neck pain, No shoulder pain, No arm pain, No back pain, No hand pain, No leg pain, No foot pain Skin: No Rash, No Lesions, No Jaundice, No Bruising, No Other Objective Vitals Vital Signs Date Time Temp Pulse Resp B/P (MAP) Pulse Ox O2 Delivery O2 Flow Rate FiO2 01/17/25 04:57 97.9 80 20 119/75 (90) 100 97.9 01/16/25 20:00 Room Air* 0 21 Intake/Output Intake and Output 01/17/25 07:00 Intake Total 3130 ml Balance 3130 ml Intake Oral 3080 ml IV Total 50 ml # Voids 5 Medications Current Medications Medications Dose Ordered Sig/Helen Route Start Time Stop Time Status Last Admin Dose Admin Acetaminophen/ Hydrocodone Bitart 1 tab Q4HP PRN PO 01/13/25 09:45 01/16/25 21:04 1 TAB Ondansetron HCl 4 mg Q4HP PRN IV 01/13/25 09:45 01/13/25 11:26 4 MG Docusate Sodium 100 mg BIDPRN PRN PO 01/13/25 09:45 Acetaminophen 650 mg Q6HP PRN PO 01/13/25 09:45 Morphine Sulfate 2 mg Q4HPRN PRN IV 01/13/25 09:45 01/17/25 01:26 2 MG Diagnostic Test (Pha) 1 strip ACHS 01/13/25 11:30 01/17/25 06:56 1 STRIP Insulin Human Regular HS SC 01/13/25 22:00 01/16/25 21:29 4 UNITS Insulin Human Regular AC SC 01/13/25 11:30 01/17/25 06:58 3 UNITS Dextrose 50 ml UD PRN IV 01/13/25 09:45 Clindamycin Phosphate 50 ml @ 50 mls/hr Q8HR IV 01/13/25 14:00 01/17/25 05:19 50 MLS/HR Nicotine 1 patch DAILY TD 01/15/25 10:00 Laboratory Results Laboratory Tests 01/14/25 05:04 Urinalysis Test 01/13/25 02:52 Urine Color Light-yellow (Yellow) Urine Clarity Clear (Clear) Urine pH 5.5 (5.0-9.0) Urine Specific [place] 1.028 (1.001-1.035) Urine Protein Trace (Negative) H Urine Ketones Negative (Negative) Urine Blood Negative /uL (Negative) Urine Nitrite Negative (Negative) Urine Bilirubin Negative (Negative) Urine Urobilinogen 2 mg/dL (Negative) H Urine Leukocyte Esterase Negative /uL (Negative) Urine RBC 1 /hpf (0 - 3) Urine Microscopic WBC 1 /HPF (0-3) Urine Squamous Epithelial Cells Few /hpf (<5) Urine Bacteria None seen /hpf (None Seen) Urine Mucus Few (None Seen) Urine Sperm Present /hpf (None Seen) Urine Glucose 1+ mg/dL (Normal) H Microbiology Microbiology Date/Time Source Procedure Growth Status 01/14/25 10:20 Leg Gram Stain - Final Complete 01/14/25 10:20 Wound Culture - Final Methicillin Resistant S.aureus Complete 01/13/25 01:40 Blood Blood Culture - Preliminary NO GROWTH AFTER 72 HOURS OF INCUBATION. Resulted Labs and/or images reviewed: Labs reviewed by me, Image(s) reviewed by me Assessment/Plan Assessment/Plan Bilateral lower leg cellulitis, : Clindamycin wound cultures growing MRSA sensitive to clindamycin Bilateral upper and lower extremity open wounds, wound cultures pending Blood Cultures negative Chronic current smoker: Counseling, nicotine patch Plan discussed with: Patient Date of Service: Jan 17, 2025 Billing Provider: VALENTINO BORGES MD Common Visit Codes: [id number] INP/OBS CARE(HIGH) VALENTINO BORGES MD Jan 17, 2025 07:27
--- NOTE | 2025-01-17 07:30 | DVHDS2 ---
Discharge Summary Date of Admission Jan 13, 2025 at 09:37 Date of Discharge: Jan 17, 2025 Admitting Diagnosis Bilateral leg wounds Wounds: Bilateral leg wounds Labs/Diagnostic Data: Laboratory Results Test 01/17/25 06:45 01/14/25 05:04 01/13/25 10:14 01/13/25 02:52 POC Glucose 170 mg/dl (70-106) White Blood Count 5.7 10^3/uL (4.4-10.8) Red Blood Count 5.08 10^6/uL (4.5-5.90) Hemoglobin 14.5 g/dL (13.5-17.5) Hematocrit 44.3 % (41.0-53.0) Mean Corpuscular Volume 87.1 fL (80.0-100.0) Mean Corpuscular Hemoglobin 28.5 pg (28.0-32.0) Mean Corpuscular Hemoglobin Concent 32.7 g/dL (32.0-36.0) Red Cell Distribution Width 14.4 % (11.8-14.3) Platelet Count 195 10^3/uL (140-450) Mean Platelet Volume 9.9 fL (6.9-10.8) Neutrophils (%) (Auto) 54.2 % (37.0-80.0) Lymphocytes (%) (Auto) 28.3 % (10.0-50.0) Monocytes (%) (Auto) 8.2 % (0.0-12.0) Eosinophils (%) (Auto) 8.6 % (0.0-7.0) Basophils (%) (Auto) 0.7 % (0.0-2.0) Neutrophils # (Auto) 3.1 10 ^3/uL (1.6-8.6) Lymphocytes # (Auto) 1.6 10 ^3/uL (0.4-5.4) Monocytes # (Auto) 0.5 10 ^3/uL (0-1.3) Eosinophils # (Auto) 0.5 10 ^3/uL (0-0.8) Basophils # (Auto) 0 10 ^3/uL (0-0.2) Nucleated Red Blood Cells 0.1 % Sodium Level 139 mmol/L (136-145) Potassium Level 4.1 mmol/L (3.5-5.1) Chloride Level 106 mmol/L (98-107) Carbon Dioxide Level 26 mmol/L (20-31) Anion Gap 7 (5-15) Blood Urea Nitrogen 14 mg/dL (9-23) Creatinine 1.08 mg/dL (0.700-1.30) Glomerular Filtration Rate Calc 88 mL/min (>90) BUN/Creatinine Ratio 13.0 (10.0-20.0) Serum Glucose 200 mg/dL (74-106) Calcium Level 9.9 mg/dL (8.7-10.4) Total Bilirubin 0.6 mg/dL (0.2-1.0) Aspartate Amino Transferase (AST) 11 U/L (13-40) Alanine Aminotransferase (ALT) 18 U/L (7-40) Alkaline Phosphatase 73 U/L (46-116) Total Protein 8.0 g/dL (5.7-8.2) Albumin 4.3 g/dL (3.2-4.8) HIV (1&2) Antibody Negative (Negative) Urine Color Light-yellow (Yellow) Urine Clarity Clear (Clear) Urine pH 5.5 (5.0-9.0) Urine Specific [place]ward 1.028 (1.001-1.035) Urine Protein Trace (Negative) Urine Ketones Negative (Negative) Urine Blood Negative /uL (Negative) Urine Nitrite Negative (Negative) Urine Bilirubin Negative (Negative) Urine Urobilinogen 2 mg/dL (Negative) Urine Leukocyte Esterase Negative /uL (Negative) Urine RBC 1 /hpf (0 - 3) Urine Microscopic WBC 1 /HPF (0-3) Urine Squamous Epithelial Cells Few /hpf (<5) Urine Bacteria None seen /hpf (None Seen) Urine Mucus Few (None Seen) Urine Sperm Present /hpf (None Seen) Urine Glucose 1+ mg/dL (Normal) Urine Opiates Screen Neg (NEGATIVE) Urine Fentanyl Screen Neg (NEGATIVE) Urine Barbiturates Screen Neg (NEGATIVE) Urine Phencyclidine Screen Neg (NEGATIVE) Urine Amphetamines Screen Neg (NEGATIVE) Urine Benzodiazepines Screen Neg (NEGATIVE) Urine Cocaine Screen Neg (NEGATIVE) Urine Cannabinoids Screen Neg (NEGATIVE) Test 01/13/25 01:50 01/13/25 01:40 Hemoglobin A1c 9.6 % A1C (<5.7) Lactic Acid Level 1.5 mmol/L (0.4-2.0) Other Laboratory Tests 3/26/25 05:04 Brief Hx & Hospital Course: 39-year-old male with a chronic current smoker came in for bilateral leg wounds found to have cellulitis with a bilateral open leg wounds. Placed on clindamycin wound care consult was done. Wound cultures growing MRSA sensitive to clindamycin. Discharged home on clindamycin p.o. [place] for the pain and Benadryl for itching he has a Dr with [employer] insurance.. He was advised to follow up with the his Dr Consults/Reason for consult None Operations or Procedures None Condition at Discharge: Fair Final Diagnosis/Problems List Bilateral lower leg cellulitis, : Clindamycin wound cultures growing MRSA sensitive to clindamycin Bilateral upper and lower extremity open wounds, wound cultures pending Blood Cultures negative Chronic current smoker: Counseling, nicotine patch Discharge Disposition: Home Discharge Instruct/Medications Diet: Regular Activity: Light activity Follow Up/Referral: Follow up with your primary Dr with [employer] insurance Medications: Clindamycin [place] Benadryl Transmitted to pharmacy [facility] [address] (Time taken for discharge summary 35 minutes) Discharge Statement: "Patient was advised to return to the ER or call 911 if any headaches, dizziness, shortness of breath, chest pain, abdominal pain, bleeding, fevers, or worsening of medical condition. Patient was counseled about treatment plan, medications, possible side effects, patientverbalized understanding. All questions were answered to the best of my ability. This discharge took greater then 30 minutes in planning, reviewing documentation, counseling the patient, and discussing with other team members." ASSESSMENT ASSESSMENT Hospital Course Improved marginally Assessment Bilateral lower leg cellulitis, : Clindamycin wound cultures growing MRSA sensitive to clindamycin Bilateral upper and lower extremity open wounds, wound cultures pending Blood Cultures negative Chronic current smoker: Counseling, nicotine patch Date of Service: Jan 17, 2025 Billing Provider: VALENTINO BORGES MD Common Visit Codes: [id number] INP/OBS CARE(HIGH) VALENTINO BORGES MD Jan 17, 2025 07:30
[2025-01-17 08:00] VITALS: O2SAT 95
[2025-01-19 09:57] LABS: Hepatitis B Surface Antigen Negative (Negative)
[2025-01-19 10:16] LABS: Hepatitis A Ab IgM Negative; Hepatitis B Core IgM Negative (Negative); Hepatitis C Antibody Negative (Negative)
== END 2025-01-17 08:23 | disposition home or self-care (01) | DRG 603 ==
LOC: ER 00:07 → OVERFLOW 09:37 → CENTRAL 13:44
PROVIDERS: ADMIT Family Medicine; ATTEND Family Medicine
DX: L03.116 Cellulitis of left lower limb (principal); J45.909 Unspecified asthma, uncomplicated; I10 Essential (primary) hypertension; E66.9 Obesity, unspecified; E11.65 Type 2 diabetes mellitus with hyperglycemia; L03.115 Cellulitis of right lower limb; F17.210 Nicotine dependence, cigarettes, uncomplicated; E78.5 Hyperlipidemia, unspecified; Z68.25 Body mass index [BMI] 25.0-25.9, adult; B95.62 Methicillin resistant Staphylococcus aureus infection as the cause of diseases classified elsewhere; Z83.3 Family history of diabetes mellitus; Z91.011 Allergy to milk products; Z91.010 Allergy to peanuts; Z91.013 Allergy to seafood
CPT/HCPCS: 36415; 71045; 80053; 80074; 80307; 81001; 82962; 83036; 83605; 85025; 86703; 87040; 87077; 87186; 87205; 96365; 96372; 96375; G0378; J1815; J2405; J3490